=== PATIENT | male | born 1960 | race American Indian/Alaskan Native ===

== ENCOUNTER 2018-09-19 18:48 | Inpatient (IN) | payer OTHER ==
[2018-09-19] MEDS ORDERED: SODIUM CHLORIDE 1,000 ML IV STA ×2 (18:51→20:29)
[2018-09-19] MEDS ORDERED: PANTOPRAZOLE SODIUM 40 MG VIAL IVPUSH ONE (18:51)
[2018-09-19] MEDS ORDERED: PANTOPRAZOLE SODIUM 80 MG in SODIUM CHLORIDE 100 ML IVPB SCH (19:00)
[2018-09-19] MEDS ORDERED: LIDOCAINE HCL 2% (20ML MULTI-DOSE VIAL) NR ONE (19:02)
[2018-09-19] MEDS ORDERED: PANTOPRAZOLE SODIUM 40 MG VIAL ONE ×2 (19:03→21:20)
[2018-09-19] MEDS ORDERED: OCTREOTIDE ACETATE 500 MCG/1 ML - 1 ML VIAL ONE (19:04)
[2018-09-19] MEDS ORDERED: OCTREOTIDE ACETATE 100 MCG/1 ML ONE (19:08)
[2018-09-19] MEDS ORDERED: ONDANSETRON 4 MG/2 ML VIAL ONE (19:13)
[2018-09-19] MEDS ORDERED: RAPID SEQUENCE INTUBATION KIT NR ONE (19:16)
[2018-09-19] MEDS ORDERED: KETAMINE HCL 200 MG/20 ML VIAL ONE (19:19)
[2018-09-19] MEDS: FENTANYL INJECTION 500 MCG in DEXTROSE 5%-WATER - 90 ML IVPB SCH (19:45)
[2018-09-19 19:51] LABS: ARTERIAL BLD GAS O2 SATURATION 93.9 % (95-98); ARTERIAL BLOOD GAS BASE EXCESS -6.7 meq/l (-2-2); ARTERIAL BLOOD GAS PCO2 38.8 mmHg (35-45); ARTERIAL BLOOD GAS PO2 83.4 mmHg (80-105); CARBOXYHEMOGLOBIN 1.1 % (0-2)
--- NOTE | 2018-09-19 19:52 | PDOC ---
History of Present Illness - General Chief Complaint: Vomiting Blood Stated Complaint: VOMITING BLOOD Time Seen by Provider: 09/19/18 19:36 History Source: Patient Exam Limitations: No Limitations - History of Present Illness Initial Comments: 09/19/18 19:53 58 yo M with a hx of cirrhosis, hepatitis C (per chart, treated "years" ago) and DM presented to the emergency department by EMS with bright red blood emesis that began this 2 hours prior to arrival. The patient was altered on presentation and hypotensive. The patient was quite jaundice on presentation. He was admitted to our hospital last year for abdominal pain with neoplasm seen on liver per MRI. He is followed by [facility]. Pshx: none Social: Denies tobacco and drug use Allergies: NKDA Past History - Past Medical History Allergies/Adverse Reactions: Allergies Allergy/AdvReac Type Severity Reaction Status Date / Time No Known Allergies Allergy Verified 09/19/18 19:01 Home Medications: Ambulatory Orders Aspirin [Aspirin EC] 81 mg PO DAILY 02/19/18 Albuterol 0.083% Nebulizer Carey [Ventolin 0.083% Nebulizer Soln -] 1 amp NEB Q15M amp 09/20/18 Ceftriaxone [Rocephin -] 1 gm IVPB DAILY vial 09/20/18 Chlorhexidine Gluconate [Hibiclens For Decolonization -] 1 applic TP HS bottle 09/20/18 Diphenhydramine [Benadryl -] 50 mg PO HS PRN 09/20/18 Fentanyl Injection [Sublimaze Injection -] 500 mcg IVPB TITR vial MDD 500 09/20 Ferrous Sulfate 325 mg PO Q48H 09/20/18 Insulin Sliding Scale [Novolog Vial Sliding Scale -] 1 vial SQ ACHS units 09/20 Loperamide HCl [Loperamide] 2 mg PO TID 09/20/18 Midazolam [Versed -] 2 mg IVPUSH Q4H PRN ml MDD 12 09/20/18 Mupirocin Ointment [Bactroban Ointment (For Decolonization) -] 1 applic NS BID applic 09/20/18 Octreotide Acetate [Sandostatin -] 1,200 mcg IVPB ASDIR ml 09/20/18 Pantoprazole Sodium 40 mg PO DAILY 09/20/18 Polyethylene Glycol 3350 [Miralax (For Daily Use) -] 17 gm PO DAILY 09/20/18 Propranolol HCl 20 mg PO BID 09/20/18 Sucralfate [Carafate -] 1 gm PO QID 09/20/18 COPD: No Diabetes: Yes (type 2) Liver Disease: Yes (cirrhosis) - Surgical History Appendectomy: Yes - Suicide/Smoking/Psychosocial Hx Smoking History: Unknown if ever smoked Have you smoked in the past 12 months: No Number of Cigarettes Smoked Daily: 0 Cigars Per Day: 0 Hx Alcohol Use: No Drug/Substance Use Hx: No Substance Use Type: None Hx Substance Use Treatment: No Review of Systems - Review of Systems Able to Perform ROS?: No (AMS) *Physical Exam - Vital Signs Last Vital Signs Temp Pulse Resp BP Pulse Ox 110 H 20 79/51 L 95 09/19/18 19:00 09/19/18 19:25 09/19/18 19:00 09/19/18 19:00 - Physical Exam General Appearance: Yes: Other (jaundice, AMS, distended abdomen. ) HEENT: positive: EOMI, SHONDA, Pharynx Normal, Hearing Grossly Normal. negative: Pale Conjunctivae, Scleral Icterus (R), Scleral Icterus (L), Muffled/Hoarse voice, Excessive drooling Neck: positive: Trachea midline, Supple. negative: Tender, Lymphadenopathy (R) , Lymphadenopathy (L), Tender lateral, Tender midline Respiratory/Chest: positive: Lungs Clear, Normal Breath Sounds. negative: Chest Tender, Respiratory Distress, Accessory Muscle Use, Stridor, Wheezing, Hyperresonant Cardiovascular: positive: Regular Rhythm, S1, S2, Tachycardia. negative: Systolic Murmur Gastrointestinal/Abdominal: positive: Normal Bowel Sounds, Tender (diffuse), Distended, Other (juandice, ascitic fluid present) Lymphatic: negative: Adenopathy Musculoskeletal: positive: Normal Inspection. negative: CVA Tenderness, Vertebral Tenderness Extremity: positive: Normal Capillary Refill, Normal Range of Motion. negative : Normal Inspection (jaundice), Tender Integumentary: positive: Dry, Warm, Jaundice Neurologic: positive: physical biochemist II-XII NML intact, Alert, Respond to painful stimul, Other. negative: Normal Mood/Affect, Normal Response Moderate Sedation - Procedure Monitoring Vital Signs: Procedure Monitoring Vital Signs Temperature Pulse Rate 110 H 09/19/18 19:00 Respiratory Rate 20 09/19/18 19:25 Blood Pressure 79/51 L 09/19/18 19:00 O2 Sat by Pulse Oximetry (%) 95 09/19/18 19:00 Procedures - Central Line Central Line Lumen: triple Central Line Position: femoral (R) Anesthesia: other (sterile) Amount of anesthesia (ccs): 4 Complications: none Post Central Line Insertion: sutured - Intubation Intubation Method: orotracheal Blade used: Mac Tube Size (Fr): 7.5 Medications: Ketamine, Rocuronium Tube position @ lip (cm): 23 Tube position confirmed by: Direct visualization Breath Sounds after Intubation: equal Intubation Complications: no complications Post Intubation Xray: Yes Heart Score/ECG Review - ECG Intrepretation Comment:: ventricular rate: 103 bpm, ID 166 ms, QTc is 487 ms, QRS is 86 ms. Sinus tachycardia. TWI in lead III. ED Treatment Course - LABORATORY CBC & Chemistry Diagram: 09/21/18 10:00 09/21/18 05:30 - ADDITIONAL ORDERS Additional order review: Laboratory Results 09/19/18 09/19/18 09/19/18 19:43 19:03 19:03 PT with INR Cancelled INR Cancelled Anticoagulation Therapy No Result Required. O2 Delivery Device No Result Required. Oxygen Flow Rate No Result Required. Vent Mode No Result Required. Vent Rate No Result Required. Mechanical Rate No Result Required. Pressure Support Vent No Result Required. Crossmatch See Detail 09/19/18 19:03 RBC Cancelled MCV Cancelled MCHC Cancelled RDW Cancelled MPV Cancelled Neutrophils % Cancelled Lymphocytes % Cancelled Monocytes % Cancelled Eosinophils % Cancelled Basophils % Cancelled - Medications Given in the ED: ED Medications Discontinued Medications Generic Name Dose Route Start Last Admin Trade Name Freq PRN Reason Stop Dose Admin Sodium Chloride 1,000 mls @ 1,000 mls/hr 09/19/18 18:51 09/19/18 19:05 Normal Saline - IV 09/19/18 19:50 1,000 mls/hr ASDIR STA Administration Medical Decision Making - Medical Decision Making 09/19/18 20:11 58 yo M with a hx of cirrhosis, hepatitis C (per chart, treated "years" ago) and DM presented to the emergency department with bright red blood emesis that began this PM. Initial vitals: Initial Vital Signs Pulse Resp BP Pulse Ox 110 H 22 H 79/51 L 95 09/19/18 19:00 09/19/18 19:00 09/19/18 19:00 09/19/18 19:00 Work up" ddx: UGIB likely secondary variceal bleeding secondary to cirrhosis. interventions: adult resuscitation was initiated. patient was actively vomiting with AMS; concerns for protection of airway. patient was intubated and a central line was placed. please refer to procedure note. prior to intubation, the patient had estimated 500-600 cc of bright red blood vomit. Call was placed to GI multiple times; Dr. Mckeon was contacted and agreed to do an emergent endoscopy Laboratory Tests 09/19/18 09/19/18 09/19/18 19:03 19:03 19:03 WBC Cancelled Corrected WBC (auto) Cancelled RBC Cancelled Hgb Cancelled Hct Cancelled MCV Cancelled MCH Cancelled MCHC Cancelled RDW Cancelled Plt Count Cancelled MPV Cancelled Absolute Neuts (auto) Cancelled Neutrophils % Cancelled Lymphocytes % Cancelled Monocytes % Cancelled Eosinophils % Cancelled Basophils % Cancelled Nucleated RBC % Cancelled Platelet Estimate Cancelled Platelet Comment Cancelled PT with INR Cancelled INR Cancelled PTT (Actin FS) Anticoagulation Therapy Puncture Site ABG pH ABG pCO2 at Pt Temp ABG pO2 at Pt Temp ABG HCO3 ABG O2 Sat (Measured) ABG O2 Content ABG Base Excess Tejas Test Carboxyhemoglobin Methemoglobin O2 Delivery Device Oxygen Flow Rate Vent Mode Vent Rate Mechanical Rate Pressure Support Vent Sodium 131 L Potassium 6.0 H Chloride 102 Carbon Dioxide 22 Anion Gap 7 L BUN 14 Creatinine 0.7 Creat Clearance w eGFR > 60 Random Glucose 195 H Calcium 7.4 L Total Bilirubin 4.0 H AST 229 H ALT 105 H Alkaline Phosphatase 202 H Creatine Kinase 159 Creatine Kinase Index 0.6 CK-MB (CK-2) < 1.0 Troponin I < 0.02 Total Protein 6.0 L Albumin 1.3 L Blood Type Antibody Screen Crossmatch 09/19/18 09/19/18 09/19/18 19:03 19:39 19:39 WBC Cancelled Corrected WBC (auto) Cancelled RBC Cancelled Hgb Cancelled Hct Cancelled MCV Cancelled MCH Cancelled MCHC Cancelled RDW Cancelled Plt Count Cancelled MPV Cancelled Absolute Neuts (auto) Cancelled Neutrophils % Cancelled Lymphocytes % Cancelled Monocytes % Cancelled Eosinophils % Cancelled Basophils % Cancelled Nucleated RBC % Cancelled Platelet Estimate Cancelled Platelet Comment Cancelled PT with INR 21.30 H INR 1.79 H PTT (Actin FS) Anticoagulation Therapy Puncture Site ABG pH ABG pCO2 at Pt Temp ABG pO2 at Pt Temp ABG HCO3 ABG O2 Sat (Measured) ABG O2 Content ABG Base Excess Tejas Test Carboxyhemoglobin Methemoglobin O2 Delivery Device Oxygen Flow Rate Vent Mode Vent Rate Mechanical Rate Pressure Support Vent Sodium Potassium Chloride Carbon Dioxide Anion Gap BUN Creatinine Creat Clearance w eGFR Random Glucose Calcium Total Bilirubin AST ALT Alkaline Phosphatase Creatine Kinase Creatine Kinase Index CK-MB (CK-2) Troponin I Total Protein Albumin Blood Type A NEGATIVE Antibody Screen Negative Crossmatch See Detail 09/19/18 09/19/18 09/19/18 19:39 19:39 19:39 WBC Corrected WBC (auto) RBC Hgb Hct MCV MCH MCHC RDW Plt Count MPV Absolute Neuts (auto) Neutrophils % Lymphocytes % Monocytes % Eosinophils % Basophils % Nucleated RBC % Platelet Estimate Platelet Comment PT with INR INR PTT (Actin FS) 29.2 Anticoagulation Therapy Puncture Site ABG pH ABG pCO2 at Pt Temp ABG pO2 at Pt Temp ABG HCO3 ABG O2 Sat (Measured) ABG O2 Content ABG Base Excess Tejas Test Carboxyhemoglobin Methemoglobin O2 Delivery Device Oxygen Flow Rate Vent Mode Vent Rate Mechanical Rate Pressure Support Vent Sodium Cancelled Potassium Cancelled Chloride Cancelled Carbon Dioxide Cancelled Anion Gap Cancelled BUN Cancelled Creatinine Cancelled Creat Clearance w eGFR Cancelled Random Glucose Cancelled Calcium Cancelled Total Bilirubin Cancelled AST Cancelled ALT Cancelled Alkaline Phosphatase Cancelled Creatine Kinase Creatine Kinase Index CK-MB (CK-2) Troponin I Total Protein Cancelled Albumin Cancelled Blood Type A NEGATIVE Antibody Screen Negative Crossmatch See Detail 09/19/18 09/19/18 09/19/18 19:43 20:05 20:05 WBC 14.5 H Corrected WBC (auto) RBC 3.36 L Hgb 8.6 L Hct 26.9 L D MCV 80.1 MCH 25.7 D MCHC 32.1 RDW 22.6 H Plt Count 456 H D MPV 9.5 Absolute Neuts (auto) Neutrophils % Lymphocytes % Monocytes % Eosinophils % Basophils % Nucleated RBC % Platelet Estimate Platelet Comment PT with INR 22.00 H INR 1.85 H PTT (Actin FS) Anticoagulation Therapy No Result Required. Puncture Site No Result Required. ABG pH 7.30 L ABG pCO2 at Pt Temp 38.8 ABG pO2 at Pt Temp 83.4 ABG HCO3 18.6 L ABG O2 Sat (Measured) 93.9 L ABG O2 Content 8.5 L* ABG Base Excess -6.7 L Tejas Test Positive Carboxyhemoglobin 1.1 Methemoglobin 0.5 O2 Delivery Device No Result Required. Oxygen Flow Rate No Result Required. Vent Mode No Result Required. Vent Rate No Result Required. Mechanical Rate No Result Required. Pressure Support Vent No Result Required. Sodium Potassium Chloride Carbon Dioxide Anion Gap BUN Creatinine Creat Clearance w eGFR Random Glucose Calcium Total Bilirubin AST ALT Alkaline Phosphatase Creatine Kinase Creatine Kinase Index CK-MB (CK-2) Troponin I Total Protein Albumin Blood Type Antibody Screen Crossmatch 09/19/18 09/19/18 20:05 20:47 WBC Corrected WBC (auto) RBC Hgb Hct MCV MCH MCHC RDW Plt Count MPV Absolute Neuts (auto) Neutrophils % Lymphocytes % Monocytes % Eosinophils % Basophils % Nucleated RBC % Platelet Estimate Platelet Comment PT with INR INR PTT (Actin FS) Anticoagulation Therapy Puncture Site ABG pH ABG pCO2 at Pt Temp ABG pO2 at Pt Temp ABG HCO3 ABG O2 Sat (Measured) ABG O2 Content ABG Base Excess Tejas Test Carboxyhemoglobin Methemoglobin O2 Delivery Device Oxygen Flow Rate Vent Mode Vent Rate Mechanical Rate Pressure Support Vent Sodium 136 133 L Potassium 5.5 H 6.1 H* Chloride 106 104 Carbon Dioxide 21 22 Anion Gap 9 7 L BUN 13 14 Creatinine 0.8 0.8 Creat Clearance w eGFR > 60 > 60 Random Glucose 181 H 187 H Calcium 6.9 L* 7.3 L Total Bilirubin 3.5 H 4.6 H AST 164 H 215 H ALT 27 35 Alkaline Phosphatase 180 H 189 H Creatine Kinase Creatine Kinase Index CK-MB (CK-2) Troponin I Total Protein 5.1 L 5.5 L Albumin 1.2 L 1.3 L Blood Type Antibody Screen Crossmatch hemoglobin was 8.6. 3 units of PRBCs and platelets and running ordered. Central line in place due to difficulty in obtaining peripheral access. NG tube was placed. started on broad spectrum abx including ceftriaxone for coverage. CXR shows ETT in place. started on octreotride, protonix. A call was placed to [facility] for transfer at the request of Dr. Mckeon. [facility] declined transfer and recommended GI proceed with the emergent endoscopy. Patient's case was discussed with ICU. Per Dr. Mckeon, there is concern for perforation; a call to [facility] transfer was placed by Dr. Aldana. Patient was admitted to ICU. Per Dr. Mckeon, the patient was recently discharged from [facility] approximately 2 weeks ago with multiple variceal bandings done with 10 liters of fluid removed from the abdomen. Per the family, patient is FULL CODE Dispo: Admit *DC/Admit/Observation/Transfer Diagnosis at time of Disposition: Jaundice, UGIB (upper gastrointestinal bleed) Liver cirrhosis Qualifiers: Hepatic cirrhosis type: unspecified hepatic cirrhosis Ascites presence: unspecified Qualified Code(s): K74.60 - Unspecified cirrhosis of liver - Discharge Dispostion Condition at time of disposition: Critical - Referrals - Patient Instructions - Post Discharge Activity
[2018-09-19 20:12] LABS: INR 1.79 (0.83-1.09); PROTHROMBIN TIME (PATIENT) 21.3 SEC (9.7-13.0)
[2018-09-19 20:15] LABS: HEMATOCRIT 26.9 % (35.4-49); HEMOGLOBIN 8.6 GM/dL (11.7-16.9); MCH 25.7 pg (25.7-33.7); MCHC 32.1 g/dl (32.0-35.9); MEAN CELL VOLUME 80.1 fl (80-96); MEAN PLT VOLUME 9.5 fl (7.5-11.1); PLATELET COUNT 456 K/MM3 (134-434); RBC 3.36 M/mm3 (4.00-5.60); RDW 22.6 % (11.9-15.9); WHITE BLOOD COUNT 14.5 K/mm3 (4.0-10.0)
--- NOTE | 2018-09-19 20:18 | PDOC ---
Attending Attestation - HPI HPI: 09/19/18 22:54 The patient is a year old male, with a significant past medical history of liver cancer, cirrhosis, hepatitis C, and DM who presents to the emergency department via EMS, with bright red blood upper GI bleeding that began this a few hours prior to his arrival to the ED. The patient was altered, actively vomiting bright red blood, and hypotensive. The patient was admitted here at [facility] last year for abdominal pain with neoplasm seen on liver per MRI. Allergies: NKDA Past surgical history: None reported Social history: None reported PCP: Dr. Sarahi Sandoval - Physicial Exam PE: 09/19/18 22:55 GENERAL:confused, active to pain, jaundice NECK: Normal ROM LUNGS: Breath sounds equal, clear to auscultation bilaterally. ABDOMEN: ictus in abdomen with fluid EXTREMITIES: 2+ pitting edema L >R NEUROLOGICAL: Cranial nerves II through XII grossly intact. SKIN: Warm, Dry, normal turgor <Nae Shaver - Last Filed: 09/19/18 22:54> - Resident Resident Name: Alek Sewell - ED Attending Attestation I have performed the following: I have examined & evaluated the patient, The case was reviewed & discussed with the resident, I agree w/resident's findings & plan, Exceptions are as noted - Critical Care Time Total Critical Care Time: 90 Critical Care Statement: The care of this patient involved high complexity decision making to prevent further life threatening deterioration of the patient 's condition and/or to evaluate & treat vital organ system(s) failure or risk of failure. - Medical Decision Making 09/19/18 20:14 I, Dr. Shanell Aldana, DO, attest that this document has been prepared under my direction and personally reviewed by me in its entirety. I further attest, that it accurately reflects all work, treatment, procedures and medical decision -making performed by me. 09/19/18 20:14 a/p: 58yo male with hx of liver ca with upper gi bleeding -pt actively vomiting brb -jaundiced -pts mental status and ability to protect his airway was limited -pt intubated upon arrival -labs sent -stat call to GI placed upon arrival -per the [facility], pt is a full code -blood consent to start transfusion given by the [facility] -consent obtain to place central line, pt very difficult peripheral stick -ffp and prbc ordered 09/19/18 20:17 multiple calls placed to GI without a response call placed to [facility] for transfer 09/19/18 20:[address] Bain- call with h/h and transfer status 09/19/18 20:18 hemoglobin is 8.6 09/19/18 20:18 resident discussing the case with [facility] transfer center and the GI team 09/19/18 20:23 case discussed again with Dr. Bain who is coming in for emergent endoscopy 09/19/18 20:32 xray shows ett in place -concern for aspiraation, broad spectrum abx ordere given ascites, distended abd, ugib covering for sbp 09/19/18 20:42 case discussed with the ICU resident dr. bain at the bedside, calling in the GI team 09/19/18 21:36 case discussed the onc fellow from [facility]-will discuss the case with their attending and call back for acceptance in transfer 09/19/18 21:38 family updated and state they want to go to [facility] 09/19/18 22:24 pt currently in the endoscopy suite 09/19/18 22:44 call placed to the [facility] transfer center for transfer to [place] 09/19/18 22:[address] Bain- blood everywhere, concern for perforation 09/19/18 23:26 dr burk updated on the status pt currently in the ICU case [facility] vitals and repeat labs Louise- the icu resident was updated on this conversation <Shanell Aldana - Last Filed: 09/19/18 23:31> Heart Score/ECG Review - ECG Intrepretation Comment:: 09/19/18 20:31 sinus tach at 103, nl axis, q waves inferior leads, qtc prolongation, abnl ekg <Shanell Aldana - Last Filed: 09/19/18 23:31> Attestations - Attestations 09/19/18 22:55 Documentation prepared by Nae Shaver, acting as medical numerical control operator for Shanell Aldana DO, MD <Nae Shaver - Last Filed: 09/19/18 22:54>
[2018-09-19] MEDS ORDERED: PIPERACILLIN/TAZOB 3.375 GM 3.375 GM in DEXTROSE 5%-WATER - 50 ML IVPB ONE ×2 (20:22→23:45)
[2018-09-19] MEDS ORDERED: ONDANSETRON 4 MG/2 ML VIAL IVPUSH ONE (20:25)
[2018-09-19] MEDS ORDERED: ROCURONIUM BROMIDE 50 MG/5 ML VIAL IVPUSH ONE (20:25)
[2018-09-19 20:29] LABS: INR 1.85 (0.83-1.09)
[2018-09-19] MEDS ORDERED: OCTREOTIDE ACETATE 50 MCG/1 ML - 1 ML VIAL IVPUSH ONE (20:29)
[2018-09-19] MEDS ORDERED: KETAMINE HCL 200 MG/20 ML VIAL IVPUSH ONE (20:30)
[2018-09-19] MEDS ORDERED: VANCOMYCIN 1,000 MG in DEXTROSE 5%-WATER - 250 ML IVPB ONE (20:32)
[2018-09-19] MEDS ORDERED: MIDAZOLAM HCL 2 MG/2 ML SINGLE DOSE VIAL ONE ×2 (20:44→22:12)
[2018-09-19] MEDS ORDERED: MIDAZOLAM HCL 5 MG/1 ML Single Dose Vial IVPUSH SCH (20:45)
[2018-09-19 20:51] LABS: ALBUMIN 1.3 g/dl (3.4-5.0); ALK PHOS 202 U/L (45-117); ANION GAP 7 MMOL/L (8-16); BLOOD UREA NITROGEN 14 mg/dL (7-18); CALCIUM 7.4 mg/dL (8.5-10.1); CHLORIDE 102 mmol/L (98-107); CO2 22 mmol/L (21-32); CREATININE 0.7 mg/dL (0.55-1.3); GLUCOSE,RANDOM 195 mg/dL (74-106); SGOT/AST 229 U/L (15-37); SGPT/ALT 105 U/L (13-61); SODIUM 131 mmol/L (136-145)
--- NOTE | 2018-09-19 20:59 | CON.GI ---
Consult Consult Specialty:: GI Referred by:: Shanell Aldana Reason for Consultation:: Hematemesis - History of Present Illness Chief Complaint: Hematemesis History of Present Illness: 58 y.o. M, h/o HCV treated in past. Diagnosed with hepatocellular carcinoma 6 months ago at [facility], then went to [facility] for oncology. Reportedly was given "immunotherapy" at [facility], which was stopped in July because of a bilirubin of 17. Has had several episodes of melena for which he had multiple variceal bandings done, with the last one about 2 weeks ago. Also had a 10 L paracentesis one week ago. Today had the largest GI bleed he has ever experienced leading to ER admission, intubation, etc. - History Source History Provided By: Family Member (pt's oral Duron) - Past Medical History Gastrointestinal: Yes: Ascites, Cancer Hepatobiliary: Yes: Hepatitis C - Alcohol/Substance Use Hx Alcohol Use: No - Smoking History Smoking history: Unknown if ever smoked Have you smoked in the past 12 months: No Aproximately how many cigarettes per day: 0 Home Medications - Allergies Allergies/Adverse Reactions: Allergies Allergy/AdvReac Type Severity Reaction Status Date / Time No Known Allergies Allergy Verified 09/19/18 19:01 - Home Medications Home Medications: Ambulatory Orders Alogliptin Javier/Metformin HCl [Alogliptin-Metformin 12.5-1000] 1 each PO BID 04/26 Glipizide [Glipizide ER] 2.5 mg PO DAILY 02/16/18 Nadolol 40 mg PO DAILY 02/16/18 Aspirin [Aspirin EC] 81 mg PO DAILY 02/19/18 Docusate Sodium 2 cap PO PRN PRN 02/19/18 Omeprazole 40 mg PO DAILY 02/19/18 Physical Exam-GI Vital Signs: Vital Signs Temperature Pulse Rate 110 H 09/19/18 19:00 Respiratory Rate 20 09/19/18 19:25 Blood Pressure 79/51 L 09/19/18 19:00 O2 Sat by Pulse Oximetry (%) 95 09/19/18 19:00 Constitutional: Yes: Other (Jaundiced with muscle wasting. Intubated.) Eyes: Yes: Sclera Icterus HENT: Yes: Other Respiratory: Yes: Other (Intubated) Gastrointestinal Inspection: Yes: Ascites, Distention Labs: CBC, BMP 09/19/18 20:05 INR, PTT INR 1.85 (0.83-1.09) H 09/19/18 20:05 Problem List - Problems (1) Portal hypertension with esophageal varices Code(s): K76.6 - PORTAL HYPERTENSION; I85.00 - ESOPHAGEAL VARICES WITHOUT BLEEDING Assessment/Plan Upper GI bleed, past history of varices. Already on octreotide, pantoprazole, receiving packed RBCs. To get FFP to help correct INR. For EGD with possible banding of varices tonight.
[2018-09-19] MEDS: OCTREOTIDE ACETATE 1,200 MCG in DEXTROSE 5%-WATER - 488 ML IVPB SCH (21:00)
[2018-09-19] MEDS ORDERED: SODIUM CHLORIDE 1,000 ML IV SCH (21:15)
[2018-09-19] MEDS ORDERED: PANTOPRAZOLE SODIUM 80 MG/200 ML BAG IVPB ONE (21:15)
--- NOTE | 2018-09-19 21:16 | PN ---
Progress Note (short form) - Note Progress Note: Reviewed home medications with pt's nephewDomi. He is taking: propranol pantoprazole senna prn Imodium prn He does not take aspirin and has been taken off hypoglycemic medication. Problem List - Problems (1) Portal hypertension with esophageal varices Code(s): K76.6 - PORTAL HYPERTENSION; I85.00 - ESOPHAGEAL VARICES WITHOUT BLEEDING
[2018-09-19] MEDS ORDERED: CEFTRIAXONE 1 GM/50 ML BAG ONE (21:20)
[2018-09-19 21:23] LABS: ALBUMIN 1.2 g/dl (3.4-5.0); ALK PHOS 180 U/L (45-117); ANION GAP 9 MMOL/L (8-16); BILIRUBIN,TOTAL 3.5 mg/dL (0.2-1); BLOOD UREA NITROGEN 13 mg/dL (7-18); CHLORIDE 106 mmol/L (98-107); CO2 21 mmol/L (21-32); CREATININE 0.8 mg/dL (0.55-1.3); GLUCOSE,RANDOM 181 mg/dL (74-106); POTASSIUM 5.5 mmol/L (3.5-5.1); SGOT/AST 164 U/L (15-37); SGPT/ALT 27 U/L (13-61); SODIUM 136 mmol/L (136-145); TOT PROT 5.1 g/dl (6.4-8.2)
[2018-09-19] MEDS ORDERED: EPINEPHrine 1:10,000 (P-F SYR) 1 MG/10 ML DISP.SYRIN ONE (21:25)
[2018-09-19 21:29] LABS: CALCIUM 6.9 mg/dL (8.5-10.1)
[2018-09-19 21:37] LABS: ALBUMIN 1.3 g/dl (3.4-5.0); ALK PHOS 189 U/L (45-117); ANION GAP 7 MMOL/L (8-16); BILIRUBIN,TOTAL 4.6 mg/dL (0.2-1); BLOOD UREA NITROGEN 14 mg/dL (7-18); CALCIUM 7.3 mg/dL (8.5-10.1); CHLORIDE 104 mmol/L (98-107); CO2 22 mmol/L (21-32); CREATININE 0.8 mg/dL (0.55-1.3); GLUCOSE,RANDOM 187 mg/dL (74-106); SGOT/AST 215 U/L (15-37); SGPT/ALT 35 U/L (13-61); SODIUM 133 mmol/L (136-145); TOT PROT 5.5 g/dl (6.4-8.2)
[2018-09-19 21:40] LABS: POTASSIUM 6.1 mmol/L (3.5-5.1)
--- NOTE | 2018-09-19 23:01 | CONSULT ---
Consultation: REQUESTING PROVIDER: CONSULT REQUEST: We have been asked to medically evaluate this patient for ( massive upper GI bleed- ICU admission). HISTORY OF PRESENT ILLNESS: History obtained from patient's HCP Mr. Marin ( nephcasey). Patient is a 57 year old Male with history of hepatocellular carcinoma and esophageal varices presented to the ED with massive upper GI bleed. Patient was resuscitated in the ED, he also had altered mental status, was intubated in the ED for airway protection, Central line was placed. Was given 2 L of normal saline, 1 FFP, 2 PRBC. Octreotide and PPI drip was started and patient was immediately taken for Upper Endoscopy. There was extensive active bleeding in the esophagus. A large clot was present in the body and fundus of the stomach, but no active bleeding was seen in the stomach. Bleeding was too rapid so the site of the active bleeding couldn't be visualized so the procedure was terminated. Patient was then transferred to ICU for further management. During the procedure, there were no complications. Vitals were stable. Was given 2mg of Versed and 200 mls of Normal Saline during the procedure. Upon arrival in the ICU. Vitals BP: 104/68 mmHg, P-82 bpm, RR -22, Spo2-98 %, Sedated and Intubated. After an hour, patient responded to verbal stimuli, responded to yes and no questions. Since he was uncomfortably, versed 2mg was given. As per the HCP, patient had Hep C was treated 20 years ago, developed cirrhosis. He was diagnosed to have Hepatocellular carcinoma in Feb, 2018. Since March he started having Upper GI bleed. Upper EGD showed no active bleed. Post op was intubated for 48 hrs and admitted in ICU for 28 days. In August, he was treated with IVIG . However it was stopped due to elevation of T. Bili - 17.5, was admitted at [facility] until the bilirubin went down. Upon discharge his T. blili was 8 and was discharged home. Since then he has had additional 3 EGDs and had banding done. A week ago, he developed ascites, paracentesis was done and report is still pending. He gets all of his treatment done at [facility]. As per the physician (Onc fellow) at [facility], they recommended home hospice however patient's family denied home hospice and wanted to continue medical management. Patient was admitted here at [facility] from 02/17/18 to 02/19/18 for abdominal pain. Abdominal pain got better and patient wanted to get his treatment done at [facility] so he was discharged. PAST MEDICAL HISTORY: Cirrhosis, Hepatocellular carcinoma, Esophageal varices, Hep C (treated successfully many years ago), DM 2, Portal vein thrombosis PAST SURGICAL HISTORY: Appendectomy ALLERGIES: Bactrim SOCIAL HISTORY: Smoking: Former smoker. Quit > 20 yrs ago Alcohol: Never Drugs: Never OCCUPATION: Business, owns a grocery store. REVIEW OF SYSTEMS: Patient sedated and Intubated. Unable to obtain ROS. PHYSICAL EXAMINATION Vital Signs - 24 hr 09/19/18 09/19/18 19:00 19:25 Pulse Rate 110 H Respiratory 22 H 20 Rate Blood Pressure 79/51 L O2 Sat by Pulse 95 Oximetry (%) GENERAL: Middle aged male, sedated and Intubated. Right femoral line, moran catheter in place. EYES: Pin point pupils. EARS, NOSE, THROAT: Bright red blood oozing from the mouth. NECK: No JVD. LUNGS: B/L lungs clear, no added sounds. HEART: Regular rate and rhythm, normal S1 and S2 without murmur. ABDOMEN: Distended +, hypoactive bowel sounds. Hepatosplenomegaly couldn't be appreciated. UPPER EXTREMITIES: No peripheral edema. LOWER EXTREMITIES: No peripheral edema. NEUROLOGICAL: Intubated. Responded to verbal stimuli. Nods yes and no to questions. Moving upper extremities. SKIN: No lesions or rashes. Laboratory Results - last 24 hr 09/19/18 09/19/18 09/19/18 19:03 19:03 19:03 WBC Cancelled Corrected WBC (auto) Cancelled RBC Cancelled Hgb Cancelled Hct Cancelled MCV Cancelled MCH Cancelled MCHC Cancelled RDW Cancelled Plt Count Cancelled MPV Cancelled Absolute Neuts (auto) Cancelled Neutrophils % Cancelled Lymphocytes % Cancelled Monocytes % Cancelled Eosinophils % Cancelled Basophils % Cancelled Nucleated RBC % Cancelled Platelet Estimate Cancelled Platelet Comment Cancelled PT with INR Cancelled INR Cancelled PTT (Actin FS) Anticoagulation Therapy ABG pH ABG pCO2 at Pt Temp ABG pO2 at Pt Temp ABG HCO3 ABG O2 Sat (Measured) ABG O2 Content ABG Base Excess Carboxyhemoglobin Methemoglobin O2 Delivery Device Oxygen Flow Rate Vent Mode Vent Rate Mechanical Rate Pressure Support Vent Sodium 131 L Potassium 6.0 H Chloride 102 Carbon Dioxide 22 Anion Gap 7 L BUN 14 Creatinine 0.7 Creat Clearance w eGFR > 60 Random Glucose 195 H Calcium 7.4 L Total Bilirubin 4.0 H AST 229 H ALT 105 H Alkaline Phosphatase 202 H Creatine Kinase 159 Creatine Kinase Index 0.6 CK-MB (CK-2) < 1.0 Troponin I < 0.02 Total Protein 6.0 L Albumin 1.3 L Blood Type Antibody Screen Crossmatch 09/19/18 09/19/18 09/19/18 19:03 19:39 19:39 WBC Cancelled Corrected WBC (auto) Cancelled RBC Cancelled Hgb Cancelled Hct Cancelled MCV Cancelled MCH Cancelled MCHC Cancelled RDW Cancelled Plt Count Cancelled MPV Cancelled Absolute Neuts (auto) Cancelled Neutrophils % Cancelled Lymphocytes % Cancelled Monocytes % Cancelled Eosinophils % Cancelled Basophils % Cancelled Nucleated RBC % Cancelled Platelet Estimate Cancelled Platelet Comment Cancelled PT with INR 21.30 H INR 1.79 H PTT (Actin FS) Anticoagulation Therapy ABG pH ABG pCO2 at Pt Temp ABG pO2 at Pt Temp ABG HCO3 ABG O2 Sat (Measured) ABG O2 Content ABG Base Excess Carboxyhemoglobin Methemoglobin O2 Delivery Device Oxygen Flow Rate Vent Mode Vent Rate Mechanical Rate Pressure Support Vent Sodium Potassium Chloride Carbon Dioxide Anion Gap BUN Creatinine Creat Clearance w eGFR Random Glucose Calcium Total Bilirubin AST ALT Alkaline Phosphatase Creatine Kinase Creatine Kinase Index CK-MB (CK-2) Troponin I Total Protein Albumin Blood Type A NEGATIVE Antibody Screen Negative Crossmatch See Detail 09/19/18 09/19/18 09/19/18 19:39 19:39 19:39 WBC Corrected WBC (auto) RBC Hgb Hct MCV MCH MCHC RDW Plt Count MPV Absolute Neuts (auto) Neutrophils % Lymphocytes % Monocytes % Eosinophils % Basophils % Nucleated RBC % Platelet Estimate Platelet Comment PT with INR INR PTT (Actin FS) 29.2 Anticoagulation Therapy ABG pH ABG pCO2 at Pt Temp ABG pO2 at Pt Temp ABG HCO3 ABG O2 Sat (Measured) ABG O2 Content ABG Base Excess Carboxyhemoglobin Methemoglobin O2 Delivery Device Oxygen Flow Rate Vent Mode Vent Rate Mechanical Rate Pressure Support Vent Sodium Cancelled Potassium Cancelled Chloride Cancelled Carbon Dioxide Cancelled Anion Gap Cancelled BUN Cancelled Creatinine Cancelled Creat Clearance w eGFR Cancelled Random Glucose Cancelled Calcium Cancelled Total Bilirubin Cancelled AST Cancelled ALT Cancelled Alkaline Phosphatase Cancelled Creatine Kinase Creatine Kinase Index CK-MB (CK-2) Troponin I Total Protein Cancelled Albumin Cancelled Blood Type A NEGATIVE Antibody Screen Negative Crossmatch See Detail 09/19/18 09/19/18 09/19/18 19:43 20:05 20:05 WBC 14.5 H Corrected WBC (auto) RBC 3.36 L Hgb 8.6 L Hct 26.9 L D MCV 80.1 MCH 25.7 D MCHC 32.1 RDW 22.6 H Plt Count 456 H D MPV 9.5 Absolute Neuts (auto) Neutrophils % Lymphocytes % Monocytes % Eosinophils % Basophils % Nucleated RBC % Platelet Estimate Platelet Comment PT with INR 22.00 H INR 1.85 H PTT (Actin FS) Anticoagulation Therapy No Result Required. ABG pH 7.30 L ABG pCO2 at Pt Temp 38.8 ABG pO2 at Pt Temp 83.4 ABG HCO3 18.6 L ABG O2 Sat (Measured) 93.9 L ABG O2 Content 8.5 L* ABG Base Excess -6.7 L Carboxyhemoglobin 1.1 Methemoglobin 0.5 O2 Delivery Device No Result Required. Oxygen Flow Rate No Result Required. Vent Mode No Result Required. Vent Rate No Result Required. Mechanical Rate No Result Required. Pressure Support Vent No Result Required. Sodium Potassium Chloride Carbon Dioxide Anion Gap BUN Creatinine Creat Clearance w eGFR Random Glucose Calcium Total Bilirubin AST ALT Alkaline Phosphatase Creatine Kinase Creatine Kinase Index CK-MB (CK-2) Troponin I Total Protein Albumin Blood Type Antibody Screen Crossmatch 09/19/18 09/19/18 20:05 20:47 WBC Corrected WBC (auto) RBC Hgb Hct MCV MCH MCHC RDW Plt Count MPV Absolute Neuts (auto) Neutrophils % Lymphocytes % Monocytes % Eosinophils % Basophils % Nucleated RBC % Platelet Estimate Platelet Comment PT with INR INR PTT (Actin FS) Anticoagulation Therapy ABG pH ABG pCO2 at Pt Temp ABG pO2 at Pt Temp ABG HCO3 ABG O2 Sat (Measured) ABG O2 Content ABG Base Excess Carboxyhemoglobin Methemoglobin O2 Delivery Device Oxygen Flow Rate Vent Mode Vent Rate Mechanical Rate Pressure Support Vent Sodium 136 133 L Potassium 5.5 H 6.1 H* Chloride 106 104 Carbon Dioxide 21 22 Anion Gap 9 7 L BUN 13 14 Creatinine 0.8 0.8 Creat Clearance w eGFR > 60 > 60 Random Glucose 181 H 187 H Calcium 6.9 L* 7.3 L Total Bilirubin 3.5 H 4.6 H AST 164 H 215 H ALT 27 35 Alkaline Phosphatase 180 H 189 H Creatine Kinase Creatine Kinase Index CK-MB (CK-2) Troponin I Total Protein 5.1 L 5.5 L Albumin 1.2 L 1.3 L Blood Type Antibody Screen Crossmatch Active Medications Generic Name Dose Route Start Last Admin Trade Name Freq PRN Reason Stop Dose Admin Pantoprazole Sodium 80 mg/ 100 mls @ 10 mls/hr 09/19/18 19:00 Sodium Chloride IVPB Q10H ALYSA 8 MG/HR Octreotide Acetate 1,200 mcg/ 500 mls @ 20.83 mls/hr 09/19/18 19:00 09/19/18 21:00 Dextrose IVPB 20.83 mls/hr ASDIR ALYSA Administration 50 MCG/HR Fentanyl 500 mcg/ Dextrose 100 mls @ 0 mls/hr 09/19/18 19:30 09/19/18 19:45 IVPB 25 mcg/hr TITR ALYSA 5 mls/hr Administration Protocol 0 MCG/HR Sodium Chloride 1,000 mls @ 100 mls/hr 09/19/18 21:15 09/19/18 19:10 Normal Saline - IV 100 mls/hr ASDIR ALYSA Administration Midazolam HCl 5 mg 09/19/18 20:45 09/19/18 20:42 Versed - IVPUSH 5 mg PRN ALYSA Administration IMAGIN/18: CTAP: cirrhosis, splenomegally ,varices, portal vein thrombosis, pancolitis. pt tx w/ abx for pancolitis. 02/24: MRCP shows focal abnormal signal involving the right lobe measuring approx 9.2 cm. Enlarged periportal and peripancreatic lymphnodes measuring 1.8cm. MRI showing diffusely irregular and enlarged main portal vein and right portal vein very suspicious for thrombosis. Diffuse abnormal signal within the right lobe of the liver is probably related to the portal vein thrombosis. ASSESSMENT/PLAN: Patient is a 58 year old male with significant past medical history of Cirrhosis , Hepatocellular carcinoma, Esophageal varices, Hep C (treated successfully many years ago), DM 2, Portal vein thrombosis presented to the ED with massive upper GI bleed, emergent EGD was done without successful cessation of bleeding due to active bleed. Procedure was terminated and now in ICU for further management. # Massive Upper GI bleed likely secondary to esophageal varices vs ulcers. Sedated and Intubated for altered mental status A/C settings at 12/400/40/5 IV Fentanyl drip/ IV Versed 2mg push PRN for sedation Continue IV Protonix drip and octreotide drip Patient received total of 5 PRBCs and 2 FFP's Repeat CBC H/H on admission 8.6/26.9---> after the 4th transfusion H/H 9./ .3 Lactic acid 3.9--> repeat at 5 am. IV Ceftriaxone 2gm once given and to continue Continue IV NS @ 75 mls/hr # Hyperkalemia without EKG changes K 6--> 6.2 likely from blood transfusion. Treated with Insulin and 50 % Dextrose Repeat K was still 6.3 without any EKG changes. Again treated with Insulin, 50 % Dextrose and Albuterol x 3. Will repeat BMP at 5 am # Abdominal distention It could be from ascites vs massive blood collection vs perforation Patient is too unstable to get a CT abdomen/Pelvis. # Elevated liver enzymes Likely secondary to cirrhosis and HCC. Normal platelet count. Last admission , had thrombocytopenia which has now resolved. T. bili 4--> 7.8, AST/ALT/ALP 229/105/202---> 233/42/164 Hepatic panel was done last admission 02/24 Hep A Ab positive. Hep A, Hep B, HCV RNA PCR not detected. HIV negative # Normocytic anemia likely from GI bleed H/H 9.2/27.3. last admission H/h was 13.439.4 (02/18/2019) received 5 units of PRBC. Next CBC at 5 am # Portal vein thrombosis # Elevated INR INR 1.85---> after 2 FFP INR is 1.66. Will repeat. # DM As per family, his medications were stopped 2 months ago as HbA1c was around 5. Finger stick BGMs, Insulin sliding scale # FEN IV NS @ 75 mls/hr Electrolytes to be repeated at 5 am NPO # Prophylaxis For GI: On Protonix drip For DVT: SCDs, no chemical prophylaxis due to GI bleed # Code Status: Full Code. Family members present at bed side (Patients oral LOZANO, another nephew , pts brother and his ). Explained in detail regarding patients critical condition. They verbalized understanding. Family requested for transfer to a tertiary care center. Follow up was done with the ED physician who had spoken with Dr. Zelaya ([facility] at [facility]); depending upon the most recent labs, vitals and stability of the patient, she will decide whether to accept the patient for further management. Explained to the family members that patient is not stable enough to be transferred at this time, patient's family verbalized understanding. Case discussed with ED physician, Dr. Mckeon and Dr. Jean. Dispo: We will continue to follow the patient. Thank you for this consultative opportunity. Visit type - Emergency Visit Emergency Visit: Yes ED Registration Date: 09/19/18 Care time: The patient presented to the Emergency Department on the above date and was hospitalized for further evaluation of their emergent condition. - New Patient This patient is new to me today: Yes Date on this admission: 09/19/18 - Critical Care Critical Care patient: Yes Total Critical Care Time (in minutes): 35 Critical Care Statement: The care of this patient involved high complexity decision making to prevent further life threatening deterioration of the patient 's condition and/or to evaluate & treat vital organ system(s) failure or risk of failure.
[2018-09-19] MEDS ORDERED: INSULIN REGULAR HUMAN 100 UNITS/ML *VIAL IVPUSH ONE (23:23)
[2018-09-19] MEDS ORDERED: DEXTROSE 50%-WATER 25 GM/50 ML DISP.SYRIN IVPUSH ONE (23:24)
[2018-09-19] MEDS ORDERED: VANCOMYCIN 1 GRAM (PRE-DOCKED) 1,000 MG/250 ML BAG IVPB ONE (23:45)
[2018-09-19] MEDS ORDERED: DEXTROSE 50%-WATER - 25 GM/50 ML VIAL ONE (23:58)
[2018-09-20] MEDS: PANTOPRAZOLE SODIUM 80 MG in SODIUM CHLORIDE 100 ML IVPB SCH ×3 (00:04→22:40)
[2018-09-20 00:15] LABS: HEMATOCRIT 27.3 % (35.4-49); HEMOGLOBIN 9.2 GM/dL (11.7-16.9); MCHC 33.6 g/dl (32.0-35.9); MEAN CELL VOLUME 80.4 fl (80-96); MEAN PLT VOLUME 9.8 fl (7.5-11.1); PLATELET COUNT 488 K/MM3 (134-434); RDW 20.8 % (11.9-15.9); WHITE BLOOD COUNT 17.1 K/mm3 (4.0-10.0)
[2018-09-20 00:26] LABS: INR 1.66 (0.83-1.09); PROTHROMBIN TIME (PATIENT) 19.7 SEC (9.7-13.0)
--- NOTE | 2018-09-20 00:38 | HP ---
CHIEF COMPLAINT:vomiting blood PCP: None HISTORY OF PRESENT ILLNESS:history per ED records as pt was found intubated and family was away already The patient is a year old male, with a significant past medical history of liver cancer, cirrhosis, hepatitis C, and DM who presents to the emergency department via EMS, with bright red blood upper GI bleeding that began this a few hours prior to his arrival to the ED. The patient was altered, actively vomiting bright red blood, and hypotensive. The patient was admitted here at [facility] last year for abdominal pain with neoplasm seen on liver per MRI. ER course was notable for: (1)EGD with massive bleeding (2)5 PRBCS , 2 FFP (3)CBC, CMP Recent Travel:denies PAST MEDICAL HISTORY: Cirrhosis, Hepatocellular carcinoma, Esophageal varices, Hep C (treated successfully many years ago), DM 2, Portal vein thrombosis PAST SURGICAL HISTORY: appendectomy Social History: Smoking:former smoker Alcohol:denies Drugs: denies Family History:non contributory Allergies No Known Allergies Allergy (Verified 09/19/18 19:01) HOME MEDICATIONS: Home Medications Medication Instructions Recorded Alogliptin Javier/Metformin HCl 1 each PO BID 02/16/18 [Alogliptin-Metformin 12.5-1000] Glipizide [Glipizide ER] 2.5 mg PO DAILY 02/16/18 Nadolol 40 mg PO DAILY 02/16/18 Aspirin [Aspirin EC] 81 mg PO DAILY 02/19/18 Docusate Sodium 2 cap PO PRN PRN 02/19/18 Omeprazole 40 mg PO DAILY 02/19/18 REVIEW OF SYSTEMS not able to obtain PHYSICAL EXAMINATION Vital Signs - 24 hr 09/19/18 09/19/18 09/19/18 19:00 19:25 19:45 Temperature Pulse Rate 110 H Pulse Rate [ 100 H 110 H Apical] Respiratory 22 H 26 H 20 Rate Blood Pressure 79/51 L Blood Pressure 88/59 L 117/79 [Right Arm] O2 Sat by Pulse 95 100 97 Oximetry (%) 09/19/18 09/19/18 09/19/18 19:55 21:40 23:43 Temperature 97.8 F Pulse Rate Pulse Rate [ 109 H 92 H Apical] Respiratory 20 20 23 H Rate Blood Pressure Blood Pressure 142/88 102/71 [Right Arm] O2 Sat by Pulse 98 98 Oximetry (%) GENERAL: intubated , sedated , blood out of his mouth HEAD: NC/AT , EYES: pin poit pupil, icteric sclera NECK: supple LUNGS: CTA anteriorly HEART: sinus tachy , no MRG ABDOMEN: ascitic abdomen distended, + Shifting dullness , + BS LOWER EXTREMITIES: 2+ pulses, warm, well-perfused. No calf tenderness. trace peripheral edema R>L . NEUROLOGICAL: intubated , partially sedated , respond with shaking his head Laboratory Results - last 24 hr 09/19/18 09/19/18 09/19/18 19:03 19:03 19:03 WBC Cancelled Corrected WBC (auto) Cancelled RBC Cancelled Hgb Cancelled Hct Cancelled MCV Cancelled MCH Cancelled MCHC Cancelled RDW Cancelled Plt Count Cancelled MPV Cancelled Absolute Neuts (auto) Cancelled Neutrophils % Cancelled Lymphocytes % Cancelled Monocytes % Cancelled Eosinophils % Cancelled Basophils % Cancelled Nucleated RBC % Cancelled Platelet Estimate Cancelled Platelet Comment Cancelled PT with INR Cancelled INR Cancelled PTT (Actin FS) Anticoagulation Therapy ABG pH ABG pCO2 at Pt Temp ABG pO2 at Pt Temp ABG HCO3 ABG O2 Sat (Measured) ABG O2 Content ABG Base Excess Carboxyhemoglobin Methemoglobin O2 Delivery Device Oxygen Flow Rate Vent Mode Vent Rate Mechanical Rate Pressure Support Vent Sodium 131 L Potassium 6.0 H Chloride 102 Carbon Dioxide 22 Anion Gap 7 L BUN 14 Creatinine 0.7 Creat Clearance w eGFR > 60 Random Glucose 195 H Calcium 7.4 L Total Bilirubin 4.0 H AST 229 H ALT 105 H Alkaline Phosphatase 202 H Creatine Kinase 159 Creatine Kinase Index 0.6 CK-MB (CK-2) < 1.0 Troponin I < 0.02 Total Protein 6.0 L Albumin 1.3 L Blood Type Antibody Screen Crossmatch 09/19/18 09/19/18 09/19/18 19:03 19:39 19:39 WBC Cancelled Corrected WBC (auto) Cancelled RBC Cancelled Hgb Cancelled Hct Cancelled MCV Cancelled MCH Cancelled MCHC Cancelled RDW Cancelled Plt Count Cancelled MPV Cancelled Absolute Neuts (auto) Cancelled Neutrophils % Cancelled Lymphocytes % Cancelled Monocytes % Cancelled Eosinophils % Cancelled Basophils % Cancelled Nucleated RBC % Cancelled Platelet Estimate Cancelled Platelet Comment Cancelled PT with INR 21.30 H INR 1.79 H PTT (Actin FS) Anticoagulation Therapy ABG pH ABG pCO2 at Pt Temp ABG pO2 at Pt Temp ABG HCO3 ABG O2 Sat (Measured) ABG O2 Content ABG Base Excess Carboxyhemoglobin Methemoglobin O2 Delivery Device Oxygen Flow Rate Vent Mode Vent Rate Mechanical Rate Pressure Support Vent Sodium Potassium Chloride Carbon Dioxide Anion Gap BUN Creatinine Creat Clearance w eGFR Random Glucose Calcium Total Bilirubin AST ALT Alkaline Phosphatase Creatine Kinase Creatine Kinase Index CK-MB (CK-2) Troponin I Total Protein Albumin Blood Type A NEGATIVE Antibody Screen Negative Crossmatch See Detail 09/19/18 09/19/18 09/19/18 19:39 19:39 19:39 WBC Corrected WBC (auto) RBC Hgb Hct MCV MCH MCHC RDW Plt Count MPV Absolute Neuts (auto) Neutrophils % Lymphocytes % Monocytes % Eosinophils % Basophils % Nucleated RBC % Platelet Estimate Platelet Comment PT with INR INR PTT (Actin FS) 29.2 Anticoagulation Therapy ABG pH ABG pCO2 at Pt Temp ABG pO2 at Pt Temp ABG HCO3 ABG O2 Sat (Measured) ABG O2 Content ABG Base Excess Carboxyhemoglobin Methemoglobin O2 Delivery Device Oxygen Flow Rate Vent Mode Vent Rate Mechanical Rate Pressure Support Vent Sodium Cancelled Potassium Cancelled Chloride Cancelled Carbon Dioxide Cancelled Anion Gap Cancelled BUN Cancelled Creatinine Cancelled Creat Clearance w eGFR Cancelled Random Glucose Cancelled Calcium Cancelled Total Bilirubin Cancelled AST Cancelled ALT Cancelled Alkaline Phosphatase Cancelled Creatine Kinase Creatine Kinase Index CK-MB (CK-2) Troponin I Total Protein Cancelled Albumin Cancelled Blood Type A NEGATIVE Antibody Screen Negative Crossmatch See Detail 09/19/18 09/19/18 09/19/18 19:43 20:05 20:05 WBC 14.5 H Corrected WBC (auto) RBC 3.36 L Hgb 8.6 L Hct 26.9 L D MCV 80.1 MCH 25.7 D MCHC 32.1 RDW 22.6 H Plt Count 456 H D MPV 9.5 Absolute Neuts (auto) Neutrophils % Lymphocytes % Monocytes % Eosinophils % Basophils % Nucleated RBC % Platelet Estimate Platelet Comment PT with INR 22.00 H INR 1.85 H PTT (Actin FS) Anticoagulation Therapy No Result Required. ABG pH 7.30 L ABG pCO2 at Pt Temp 38.8 ABG pO2 at Pt Temp 83.4 ABG HCO3 18.6 L ABG O2 Sat (Measured) 93.9 L ABG O2 Content 8.5 L* ABG Base Excess -6.7 L Carboxyhemoglobin 1.1 Methemoglobin 0.5 O2 Delivery Device No Result Required. Oxygen Flow Rate No Result Required. Vent Mode No Result Required. Vent Rate No Result Required. Mechanical Rate No Result Required. Pressure Support Vent No Result Required. Sodium Potassium Chloride Carbon Dioxide Anion Gap BUN Creatinine Creat Clearance w eGFR Random Glucose Calcium Total Bilirubin AST ALT Alkaline Phosphatase Creatine Kinase Creatine Kinase Index CK-MB (CK-2) Troponin I Total Protein Albumin Blood Type Antibody Screen Crossmatch 09/19/18 09/19/18 09/19/18 20:05 20:47 23:59 WBC 17.1 H Corrected WBC (auto) RBC 3.40 L Hgb 9.2 L Hct 27.3 L MCV 80.4 MCH 27.0 MCHC 33.6 RDW 20.8 H Plt Count 488 H MPV 9.8 Absolute Neuts (auto) Neutrophils % Lymphocytes % Monocytes % Eosinophils % Basophils % Nucleated RBC % Platelet Estimate Platelet Comment PT with INR INR PTT (Actin FS) Anticoagulation Therapy ABG pH ABG pCO2 at Pt Temp ABG pO2 at Pt Temp ABG HCO3 ABG O2 Sat (Measured) ABG O2 Content ABG Base Excess Carboxyhemoglobin Methemoglobin O2 Delivery Device Oxygen Flow Rate Vent Mode Vent Rate Mechanical Rate Pressure Support Vent Sodium 136 133 L Potassium 5.5 H 6.1 H* Chloride 106 104 Carbon Dioxide 21 22 Anion Gap 9 7 L BUN 13 14 Creatinine 0.8 0.8 Creat Clearance w eGFR > 60 > 60 Random Glucose 181 H 187 H Calcium 6.9 L* 7.3 L Total Bilirubin 3.5 H 4.6 H AST 164 H 215 H ALT 27 35 Alkaline Phosphatase 180 H 189 H Creatine Kinase Creatine Kinase Index CK-MB (CK-2) Troponin I Total Protein 5.1 L 5.5 L Albumin 1.2 L 1.3 L Blood Type Antibody Screen Crossmatch 09/19/18 23:59 WBC Corrected WBC (auto) RBC Hgb Hct MCV MCH MCHC RDW Plt Count MPV Absolute Neuts (auto) Neutrophils % Lymphocytes % Monocytes % Eosinophils % Basophils % Nucleated RBC % Platelet Estimate Platelet Comment PT with INR 19.70 H INR 1.66 H PTT (Actin FS) Anticoagulation Therapy ABG pH ABG pCO2 at Pt Temp ABG pO2 at Pt Temp ABG HCO3 ABG O2 Sat (Measured) ABG O2 Content ABG Base Excess Carboxyhemoglobin Methemoglobin O2 Delivery Device Oxygen Flow Rate Vent Mode Vent Rate Mechanical Rate Pressure Support Vent Sodium Potassium Chloride Carbon Dioxide Anion Gap BUN Creatinine Creat Clearance w eGFR Random Glucose Calcium Total Bilirubin AST ALT Alkaline Phosphatase Creatine Kinase Creatine Kinase Index CK-MB (CK-2) Troponin I Total Protein Albumin Blood Type Antibody Screen Crossmatch CBC, [facility] 09/19/18 23:59 ASSESSMENT/PLAN: Pt is a 57 y/o M with PMH Cirrhosis, Hep C (per pt, treated successfully many years ago), DM 2, appendectomy who presented with upper GI bleed due to esophaeal varices was intubated and sedated in ED and admitted to ICU # Upper GI bleed 2/2 esophageal varices * Intubated sedated in ED * 2 Large IV pores * Type and screen * H/H Q4hr * transfuse for hgb below 7 , given 5 units PRBCS and 2 FFP so far * Octeriotide drip * PPI drip vs 40 BID same results * Ceftriaxone 1 gm daily proph for infection * GI cosnult Dr Mike Hollis * ICU monitor * hold ASA , * IV fluids NS @ 75 cc /hr * maintain blood pressure MAP > 65 * family refuse DNR/DNI * was seen [facility] and hospice was recommended * EGD with sever active bleeding and clots not sure if there is perforation , prognosis is poor # HYperkalmia * treat medically with D50 and insulin * we can not use Kayexalate suppositorydue to possible perforation * D5 @ 75 CC and ISS to shift K into cells , consult Nephro in AM # Portal HTN # Cirrhosis # HCC #H/O HEPc * conservative treatment #DM * hold oral agents * BGM ACHS * ISS ACHS #FEN * NS Bolus and maintence at 75 CC/hr switch to D5 fo hyperkalemia * monitor lytes * NPO #PPx * SCDS , no chemical prophylaxis * GI: PPI drip #Dispo * ICU # Full code Visit type - Emergency Visit Emergency Visit: Yes ED Registration Date: 09/19/18 Care time: The patient presented to the Emergency Department on the above date and was hospitalized for further evaluation of their emergent condition. - New Patient This patient is new to me today: Yes Date on this admission: 09/20/18 - Critical Care Critical Care patient: Yes Total Critical Care Time (in minutes): 45 Critical Care Statement: The care of this patient involved high complexity decision making to prevent further life threatening deterioration of the patient 's condition and/or to evaluate & treat vital organ system(s) failure or risk of failure.
[2018-09-20 00:40] LABS: ALBUMIN 1.6 g/dl (3.4-5.0); ALK PHOS 164 U/L (45-117); ANION GAP 6 MMOL/L (8-16); BILIRUBIN,TOTAL 7.8 mg/dL (0.2-1); BLOOD UREA NITROGEN 16 mg/dL (7-18); CALCIUM 7.3 mg/dL (8.5-10.1); CHLORIDE 104 mmol/L (98-107); CO2 23 mmol/L (21-32); CREATININE 0.7 mg/dL (0.55-1.3); GLUCOSE,RANDOM 188 mg/dL (74-106); PHOSPHOROUS 4.7 mg/dL (2.5-4.9); SGOT/AST 233 U/L (15-37); SGPT/ALT 42 U/L (13-61); SODIUM 133 mmol/L (136-145); TOT PROT 5.3 g/dl (6.4-8.2)
[2018-09-20 00:50] LABS: POTASSIUM 6.2 mmol/L (3.5-5.1)
[2018-09-20] MEDS ORDERED: SODIUM CHLORIDE 1,000 ML IV SCH (01:00)
[2018-09-20] MEDS: FENTANYL INJECTION 500 MCG in DEXTROSE 5%-WATER - 90 ML IVPB SCH ×5 (01:30→23:53)
[2018-09-20] MEDS ORDERED: fentaNYL CITRATE 250 MCG/5 ML VIAL ONE ×3 (01:33→17:39)
[2018-09-20 01:59] LABS: ANION GAP 6 MMOL/L (8-16); BLOOD UREA NITROGEN 17 mg/dL (7-18); CALCIUM 7.3 mg/dL (8.5-10.1); CHLORIDE 103 mmol/L (98-107); CO2 23 mmol/L (21-32); CREATININE 0.8 mg/dL (0.55-1.3); GLUCOSE,RANDOM 263 mg/dL (74-106); SODIUM 132 mmol/L (136-145)
[2018-09-20 02:00] LABS: POTASSIUM 6.3 mmol/L (3.5-5.1)
[2018-09-20] MEDS ORDERED: INSULIN REGULAR HUMAN 100 UNITS/ML *VIAL IVPUSH ONE ×2 (02:11→17:56)
[2018-09-20 02:12] LABS: ACTIVATED PTT 35.4 SECONDS (25.2-36.5)
[2018-09-20] MEDS ORDERED: DEXTROSE 50%-WATER - 25 GM/50 ML VIAL IVPUSH ONE ×3 (02:12→17:55)
[2018-09-20] MEDS ORDERED: DEXTROSE 50%-WATER - 25 GM/50 ML VIAL ONE ×2 (02:20→18:05)
[2018-09-20] MEDS: ALBUTEROL SO4 0.083% IH SOL 2.5 MG/3 ML VIAL.NEB. NEB SCH ×3 (02:33→03:15)
--- NOTE | 2018-09-20 03:23 | PN ---
Teaching Attending Note Name of Resident: Lincoln Willams ATTENDING PHYSICIAN STATEMENT I saw and evaluated the patient. I reviewed the resident's note and discussed the case with the resident. I agree with the resident's findings and plan as documented. SUBJECTIVE: Patient is a 57 year old man with PMH of hepatocellular carcinoma and esophageal varices presented to the ER with severe upper GI bleed. Patient had altered mental status on arrival and was intubated in the ER for airway protection. He got 2 L of normal saline, 1 FFP, 2 PRBC. Octreotide and protonix drip was started and he was taken for Upper Endoscopy. EGD noted extensive active bleeding in the esophagus, large clot in the body and fundus of the stomach, but no active bleeding was seen in the stomach. Bleeding was too rapid so the site of the active bleeding couldn't be visualized and the procedure was terminated. Patient was then transferred to ICU for further management. He gets all of his treatment done at [facility]. The ER physician contacted [facility] to arrange for transfer. As per the physician (Onc fellow) at [facility], they recommended home hospice however patient's family denied home hospice and wanted to continue medical management. OBJECTIVE: Intubated and sedated on fentanyl; intermittently restless on the ventilator Vital Signs Period Temp Pulse Resp BP Sys/Louis Pulse Ox Last 24 Hr 97.8 F 90-110 19-26 79-142/51-89 95-100 HEENT: No Jaundice, eye redness or discharge, PERRLA, EOMI. +Jaundice. Fresh blood oozing from the mouth and in the NG tube. Normocephalic, atraumatic. External ears are normal; No nasal discharge. Neck: Supple, nontender. No palpable adenopathy or thyromegaly. No JVD Chest: Good effort. Clear to auscultation and percussion. Heart: Sinus tachycardia. Regular. No S3, rub or murmur Abdomen: Distended, tense, nontender and no palpable HSM. No rebound or guarding. Diminished bowel sounds. Ext: Peripheral pulses intact. Leg edema. Skin: Warm and dry. No petechiae, rash or ecchymosis. Neuro: Sedated with fentanyl on the ventilator. Intermittently restless. Moves all limbs. Psych: Unable to assess Current Medications Generic Name Dose Route Start Last Admin Trade Name Freq PRN Reason Stop Dose Admin Chlorhexidine Gluconate 1 applic 09/20/18 22:00 Hibiclens For Decolonization - TP HS ALYSA Octreotide Acetate 1,200 mcg/ 500 mls @ 20.83 mls/hr 09/19/18 19:00 09/19/18 21:00 Dextrose IVPB 20.83 mls/hr ASDIR ALYSA Administration 50 MCG/HR Fentanyl 500 mcg/ Dextrose 100 mls @ 0 mls/hr 09/19/18 19:30 09/20/18 01:30 IVPB 75 mcg/hr TITR ALYSA 15 mls/hr Administration Protocol 0 MCG/HR Pantoprazole Sodium 80 mg/ 100 mls @ 10 mls/hr 09/19/18 23:30 09/20/18 00:04 Sodium Chloride IVPB 10 mls/hr Q10H ALYSA Administration 8 MG/HR Ceftriaxone Sodium 1 gm/ 50 mls @ 100 mls/hr 09/20/18 10:00 Dextrose IVPB DAILY ALYSA Protocol Sodium Chloride 1,000 mls @ 75 mls/hr 09/20/18 01:00 09/20/18 01:29 Normal Saline - IV 75 mls/hr ASDIR ALYSA Administration Insulin Aspart 1 vial 09/20/18 07:00 Novolog Vial Sliding Scale - SQ ACHS ALYSA Protocol Midazolam HCl 5 mg 09/19/18 20:45 09/19/18 20:42 Versed - IVPUSH 5 mg PRN ALYSA Administration Mupirocin 1 applic 09/20/18 10:00 Bactroban Ointment (For Decolonization) - NS 09/25/18 09:59 BID [facility] Home Medications Medication Instructions Recorded Alogliptin Javier/Metformin HCl 1 each PO BID 02/16/18 [Alogliptin-Metformin 12.5-1000] Glipizide [Glipizide ER] 2.5 mg PO DAILY 02/16/18 Nadolol 40 mg PO DAILY 02/16/18 Aspirin [Aspirin EC] 81 mg PO DAILY 02/19/18 Docusate Sodium 2 cap PO PRN PRN 02/19/18 Omeprazole 40 mg PO DAILY 02/19/18 Abnormal Lab Results 09/19/18 09/19/18 09/19/18 19:03 19:03 19:39 WBC RBC Hgb Hct RDW Plt Count PT with INR 21.30 H INR 1.79 H Fibrinogen ABG pH ABG HCO3 ABG O2 Sat (Measured) ABG O2 Content ABG Base Excess Sodium 131 L Potassium 6.0 H Anion Gap 7 L Random Glucose 195 H Lactic Acid Calcium 7.4 L Total Bilirubin 4.0 H AST 229 H ALT 105 H Alkaline Phosphatase 202 H Total Protein 6.0 L Albumin 1.3 L Crossmatch See Detail 09/19/18 09/19/18 09/19/18 19:39 19:43 20:05 WBC 14.5 H RBC 3.36 L Hgb 8.6 L Hct 26.9 L D RDW 22.6 H Plt Count 456 H D PT with INR INR Fibrinogen ABG pH 7.30 L ABG HCO3 18.6 L ABG O2 Sat (Measured) 93.9 L ABG O2 Content 8.5 L* ABG Base Excess -6.7 L Sodium Potassium Anion Gap Random Glucose Lactic Acid Calcium Total Bilirubin AST ALT Alkaline Phosphatase Total Protein Albumin Crossmatch See Detail 09/19/18 09/19/18 09/19/18 20:05 20:05 20:47 WBC RBC Hgb Hct RDW Plt Count PT with INR 22.00 H INR 1.85 H Fibrinogen ABG pH ABG HCO3 ABG O2 Sat (Measured) ABG O2 Content ABG Base Excess Sodium 133 L Potassium 5.5 H 6.1 H* Anion Gap 7 L Random Glucose 181 H 187 H Lactic Acid Calcium 6.9 L* 7.3 L Total Bilirubin 3.5 H 4.6 H AST 164 H 215 H ALT Alkaline Phosphatase 180 H 189 H Total Protein 5.1 L 5.5 L Albumin 1.2 L 1.3 L Crossmatch 09/19/18 09/19/18 09/19/18 23:30 23:59 23:59 WBC 17.1 H RBC 3.40 L Hgb 9.2 L Hct 27.3 L RDW 20.8 H Plt Count 488 H PT with INR 19.70 H INR 1.66 H Fibrinogen 223.0 L ABG pH ABG HCO3 ABG O2 Sat (Measured) ABG O2 Content ABG Base Excess Sodium Potassium Anion Gap Random Glucose Lactic Acid Calcium Total Bilirubin AST ALT Alkaline Phosphatase Total Protein Albumin Crossmatch 09/19/18 09/20/18 09/20/18 23:59 00:15 01:15 WBC RBC Hgb Hct RDW Plt Count PT with INR INR Fibrinogen ABG pH ABG HCO3 ABG O2 Sat (Measured) ABG O2 Content ABG Base Excess Sodium 133 L 132 L Potassium 6.2 H* 6.3 H* Anion Gap 6 L 6 L Random Glucose 188 H 263 H Lactic Acid 3.9 H* Calcium 7.3 L 7.3 L Total Bilirubin 7.8 H AST 233 H ALT Alkaline Phosphatase 164 H Total Protein 5.3 L Albumin 1.6 L Crossmatch ASSESSMENT AND PLAN: 1. Massive upper GI bleeding - Likely due to bleeding esophageal varices and/or gastric source. Patient is currently on his fourth unit of PRBC transfusion, had gotten 2 unis FFP and is also on Protonix and octreotide drips. Getting Rocephin 2 gm IV stat. Hyperkalemia is unexplained but is being treated with D50W, insulin and Ca gluconate. No EKG changes of hyperkalemia. As a continuation of the efforts to transfer him to [facility], the ER physician spoke with Dr. Zelaya ([facility] at [facility]) who requested for repeat labs and that depending upon the most recent labs, vitals and stability of the patient for transport, she will decide whether to accept the patient for further management. I and the medical equipment technician (Dr. Bush) met with four of his family members in the waiting room and i explained his current condition to them and all the therapeutic interventions that are being done. Earlier on, the GI product support consultant had discussed the EGD findings with one of the family members. I explained that at this time patient is too unstable for transfer to [facility] hospital. We explained that we will continue current aggressive measures and also possibly get a scan of his abdomen once he is stable, before reaching out again to [facility] for transfer. His abdominal distension has been getting progressively worse since presentation, but he is too unstable to go to CT scan. His IV fentanyl drip was just titrated up because of restlessness on the ventilator. The family members verbalized understanding and all their questions were answered satisfactorily. 2. Severe Hypoalbuminemia - Possibly due to combined effects of malnutrition, liver disease and inflammation associated with comorbid chronic conditions. Once he is stable, will ensure adequate dietary protein intake and also consult conflict resolution professional. 3. DM For now, we will hold the home diabetes drugs and implement sliding scale insulin regimen. Provide comprehensive diabetes care with patient teaching and counseling about the importance of adherence to prescribed diabetes regimen, euglycemia, eye care and foot care. 4. DVT prophylaxis - SCDs, TEDs 5. Advance directives - Full code
[2018-09-20] MEDS: INSULIN SLIDING SCALE (NOVOLOG) 1 VIAL SQ SCH ×4 (06:11→21:31)
[2018-09-20 06:15] LABS: BASO % 0.3 % (0-2.0); HEMATOCRIT 31.8 % (35.4-49); HEMOGLOBIN 10.6 GM/dL (11.7-16.9); LYMPH % 11.6 % (8-40); MCH 27.1 pg (25.7-33.7); MCHC 33.2 g/dl (32.0-35.9); MEAN CELL VOLUME 81.8 fl (80-96); MEAN PLT VOLUME 9.6 fl (7.5-11.1); MONO % 10.7 % (3.8-10.2); NEUT % 77.4 % (42.8-82.8); PLATELET COUNT 406 K/MM3 (134-434); RBC 3.89 M/mm3 (4.00-5.60); RDW 19.3 % (11.9-15.9); WHITE BLOOD COUNT 17.1 K/mm3 (4.0-10.0)
[2018-09-20] MEDS ORDERED: SODIUM POLYSTYRENE SULFONATE 15 GM/60 ML BOTTLE RC ONE (06:17)
[2018-09-20 06:23] LABS: INR 1.64 (0.83-1.09); PROTHROMBIN TIME (PATIENT) 19.4 SEC (9.7-13.0)
[2018-09-20 06:26] LABS: ACTIVATED PTT 36.2 SECONDS (25.2-36.5)
[2018-09-20] MEDS: MIDAZOLAM HCL 2 MG/2 ML SINGLE DOSE VIAL IVPUSH PRN ×2 (06:44→16:30)
[2018-09-20 07:04] LABS: ALBUMIN 1.6 g/dl (3.4-5.0); ALK PHOS 155 U/L (45-117); ANION GAP 6 MMOL/L (8-16); BLOOD UREA NITROGEN 20 mg/dL (7-18); CALCIUM 7.5 mg/dL (8.5-10.1); CHLORIDE 102 mmol/L (98-107); CO2 23 mmol/L (21-32); CREATININE 0.8 mg/dL (0.55-1.3); GLUCOSE,RANDOM 245 mg/dL (74-106); MAGNESIUM 2.2 mg/dL (1.8-2.4); N-TERMINAL BNP 107.9 pg/ml (5-125); POTASSIUM 5.6 mmol/L (3.5-5.1); SGOT/AST 461 U/L (15-37); SGPT/ALT 73 U/L (13-61); SODIUM 132 mmol/L (136-145); TOT PROT 5.5 g/dl (6.4-8.2)
--- NOTE | 2018-09-20 08:32 | PN ---
GI Progress Note Subjective: Events overnight reviewed, discussed EGD findings with Dr. Mckeon this morning Remains intubated, no active hematemesis Received 5 U PRBC, FFP - Objective Vital Signs: Vital Signs Temperature 97.6 F 09/20/18 06:00 Pulse Rate 99 H 09/20/18 06:00 Respiratory Rate 18 09/20/18 06:43 Blood Pressure 104/87 09/20/18 06:00 O2 Sat by Pulse Oximetry (%) 100 09/20/18 00:00 Constitutional: Calm Eyes: Yes: Sclera Icterus Cardiovascular: Yes: Tachycardia Respiratory: Yes: Diminished (at) Gastrointestinal Inspection: Yes: Distention. No: Scars ...Auscultate: Yes: Hypoactive Bowel Sounds ...Percussion: Yes: Tympanitic (generalized tympany including at flanks and to some extent noted upon percussion of liver) Edema: No (No LE edema) Neurological: Yes: Other (Sedated on vent) Labs: CBC, BMP 09/20/18 05:30 09/20/18 05:30 INR, PTT INR 1.64 (0.83-1.09) H 09/20/18 05:30 Fibrinogen 223.0 mg/dL (238-498) L 09/19/18 23:30 Hepatic Panel Total Bilirubin 13.0 mg/dL (0.2-1) H 09/20/18 05:30 AST 461 U/L (15-37) H 09/20/18 05:30 ALT 73 U/L (13-61) H 09/20/18 05:30 Alkaline Phosphatase 155 U/L (45-117) H 09/20/18 05:30 Albumin 1.6 g/dl (3.4-5.0) L 09/20/18 05:30 Problem List - Problems (1) UGIB (upper gastrointestinal bleed) Assessment/Plan: With history of need for serial EVL, massive UGIB noted on EGD last night Continue with supportive measures: IV PPI, Octrotide infusion, IV Abx Monitor for signs of over active bleeding Concern re: abdominal distention and significant tympany. Asked ICU team to obtain stat AXR to evaluate for free air. When stable, may need CT C/A/P depending on results When patient stable enough, transer to tertiary care center Overall poor prognosis. Code(s): K92.2 - GASTROINTESTINAL HEMORRHAGE, UNSPECIFIED
[2018-09-20] MEDS ORDERED: cefTRIAXone SODIUM 1 GM VIAL ONE (09:15)
[2018-09-20] MEDS ORDERED: DEXTROSE 5%-WATER - 50 ML IVPB ONE ×2 (09:15→21:22)
[2018-09-20] MEDS: MUPIROCIN 2% TOPICAL OINTMENT FOR DECOLONIZATION NS SCH ×2 (09:40→21:26)
[2018-09-20] MEDS ORDERED: CEFTRIAXONE 1 GM in DEXTROSE 5%-WATER - 50 ML IVPB SCH (10:00)
[2018-09-20 10:06] LABS: BILIRUBIN,DIRECT 8.7 mg/dL (0.0-0.2)
--- NOTE | 2018-09-20 10:49 | EKG ---
Test Reason : Blood Pressure : / mmHG Vent. Rate : 109 BPM Atrial Rate : 109 BPM P-R Int : 164 ms QRS Dur : 090 ms QT Int : 354 ms P-R-T Axes : 033 083 019 degrees QTc Int : 476 ms SINUS TACHYCARDIA POSSIBLE INFERIOR INFARCT , AGE UNDETERMINED ANTEROLATERAL INFARCT (CITED ON OR BEFORE 19-SEP-2018) ABNORMAL ECG WHEN COMPARED WITH ECG OF 20-SEP-2018 02:06, BORDERLINE CRITERIA FOR INFERIOR INFARCT ARE NOW PRESENT Confirmed by PO AYOUB MD ([id number]) on 09/20/2018 10:48:48 AM Referred By: Confirmed By:PO AYOUB MD
--- NOTE | 2018-09-20 10:51 | EKG ---
Test Reason : Blood Pressure : / mmHG Vent. Rate : 092 BPM Atrial Rate : 092 BPM P-R Int : 176 ms QRS Dur : 088 ms QT Int : 386 ms P-R-T Axes : 018 059 -08 degrees QTc Int : 477 ms NORMAL SINUS RHYTHM LOW VOLTAGE QRS ANTEROLATERAL INFARCT (CITED ON OR BEFORE 19-SEP-2018) ABNORMAL ECG WHEN COMPARED WITH ECG OF 19-SEP-2018 19:01, QUESTIONABLE CHANGE IN INITIAL FORCES OF LATERAL LEADS Confirmed by PO AYOUB MD ([id number]) on 09/20/2018 10:51:11 AM Referred By: Confirmed By:PO AYOUB MD
--- NOTE | 2018-09-20 10:51 | EKG ---
Test Reason : Blood Pressure : / mmHG Vent. Rate : 103 BPM Atrial Rate : 103 BPM P-R Int : 166 ms QRS Dur : 086 ms QT Int : 372 ms P-R-T Axes : 026 017 001 degrees QTc Int : 487 ms SINUS TACHYCARDIA INFERIOR INFARCT , AGE UNDETERMINED CANNOT RULE OUT ANTERIOR INFARCT , AGE UNDETERMINED ABNORMAL ECG NO PREVIOUS ECGS AVAILABLE Confirmed by PO AOYUB MD ([id number]) on 09/20/2018 10:50:41 AM Referred By: Confirmed By:PO AYOUB MD
[2018-09-20 11:09] LABS: ALLENS TEST POSITIVE
--- NOTE | 2018-09-20 11:41 | PN ---
Teaching Attending Note Name of Resident: Afsaneh Richardson ATTENDING PHYSICIAN STATEMENT I saw and evaluated the patient. I reviewed the resident's note and discussed the case with the resident. I agree with the resident's findings and plan as documented. SUBJECTIVE: Patient seen and examined in the ICU. Intubated on AC Mode of vent. Sedated. Overnight noted to have gross abdominal distention. No pressors. Right femoral TLC inserted overnight. Intake & Output 09/17/18 09/18/18 09/19/18 09/20/18 23:59 23:59 23:59 23:59 Intake Total 1600 1492 Output Total 50 300 Balance 1550 1192 Weight 180 lb 181 lb 7 oz Last Vital Signs Temp Pulse Resp BP Pulse Ox 99.3 F 86 20 96/79 100 09/20/18 10:00 09/20/18 10:00 09/20/18 11:17 09/20/18 10:00 09/20/18 00:00 Active Medications Chlorhexidine Gluconate (Hibiclens For Decolonization -) 1 applic TP HS ALYSA Octreotide Acetate 1,200 mcg/ (Dextrose) 500 mls @ 20.83 mls/hr IVPB ASDIR ALYSA Last Admin: 09/19/18 21:00 Dose: 20.83 mls/hr Fentanyl 500 mcg/ Dextrose 100 mls @ 0 mls/hr IVPB TITR ALYSA; Protocol Last Admin: 09/20/18 10:39 Dose: 75 mcg/hr, 15 mls/hr Pantoprazole Sodium 80 mg/ (Sodium Chloride) 100 mls @ 10 mls/hr IVPB Q10H ALYSA Last Admin: 09/20/18 00:04 Dose: 10 mls/hr Ceftriaxone Sodium 1 gm/ (Dextrose) 50 mls @ 100 mls/hr IVPB DAILY ALYSA; Protocol Last Admin: 09/20/18 09:39 Dose: 100 mls/hr Sodium Chloride (Normal Saline -) 1,000 mls @ 75 mls/hr IV ASDIR ALYSA Last Admin: 09/20/18 01:29 Dose: 75 mls/hr Insulin Aspart (Novolog Vial Sliding Scale -) 1 vial SQ ACHS ALYSA; Protocol Last Admin: 09/20/18 06:11 Dose: 6 units Midazolam HCl (Versed -) 2 mg IVPUSH Q4H PRN PRN Reason: AGITATION Last Admin: 09/20/18 06:44 Dose: 2 mg Mupirocin (Bactroban Ointment (For Decolonization) -) 1 applic NS BID ALYSA Stop: 09/25/18 09:59 Last Admin: 09/20/18 09:40 Dose: 1 applic GENERAL: Intubated and sedated. EYES: pupils are sluggishly reactive EARS, NOSE, THROAT: dried blood noted in mouth NECK: No JVD. LUNGS: few scattered rhonchi, mechanically ventilated HEART: Regular rate and rhythm, normal S1 and S2 without murmur. ABDOMEN: Gross distention, hypoactive BS. UPPER EXTREMITIES: No peripheral edema. LOWER EXTREMITIES: No peripheral edema. NEUROLOGICAL: Intubated. Sedated. SKIN: No lesions or rashes. Laboratory Results - last 24 hr 09/19/18 09/19/18 09/19/18 19:03 19:03 19:03 WBC Cancelled Corrected WBC (auto) Cancelled RBC Cancelled Hgb Cancelled Hct Cancelled MCV Cancelled MCH Cancelled MCHC Cancelled RDW Cancelled Plt Count Cancelled MPV Cancelled Absolute Neuts (auto) Cancelled Neutrophils % Cancelled Lymphocytes % Cancelled Monocytes % Cancelled Eosinophils % Cancelled Basophils % Cancelled Nucleated RBC % Cancelled Platelet Estimate Cancelled Platelet Comment Cancelled PT with INR Cancelled INR Cancelled PTT (Actin FS) Anticoagulation Therapy ABG pH ABG pCO2 at Pt Temp ABG pO2 at Pt Temp ABG HCO3 ABG O2 Sat (Measured) ABG O2 Content ABG Base Excess Carboxyhemoglobin Methemoglobin O2 Delivery Device Oxygen Flow Rate Vent Mode Vent Rate Mechanical Rate Pressure Support Vent Sodium 131 L Potassium 6.0 H Chloride 102 Carbon Dioxide 22 Anion Gap 7 L BUN 14 Creatinine 0.7 Creat Clearance w eGFR > 60 Random Glucose 195 H Calcium 7.4 L Total Bilirubin 4.0 H AST 229 H ALT 105 H Alkaline Phosphatase 202 H Creatine Kinase 159 Creatine Kinase Index 0.6 CK-MB (CK-2) < 1.0 Troponin I < 0.02 Total Protein 6.0 L Albumin 1.3 L Blood Type Antibody Screen Crossmatch 09/19/18 09/19/18 03 19:03 19:39 19:39 WBC Cancelled Corrected WBC (auto) Cancelled RBC Cancelled Hgb Cancelled Hct Cancelled MCV Cancelled MCH Cancelled MCHC Cancelled RDW Cancelled Plt Count Cancelled MPV Cancelled Absolute Neuts (auto) Cancelled Neutrophils % Cancelled Lymphocytes % Cancelled Monocytes % Cancelled Eosinophils % Cancelled Basophils % Cancelled Nucleated RBC % Cancelled Platelet Estimate Cancelled Platelet Comment Cancelled PT with INR 21.30 H INR 1.79 H PTT (Actin FS) Anticoagulation Therapy ABG pH ABG pCO2 at Pt Temp ABG pO2 at Pt Temp ABG HCO3 ABG O2 Sat (Measured) ABG O2 Content ABG Base Excess Carboxyhemoglobin Methemoglobin O2 Delivery Device Oxygen Flow Rate Vent Mode Vent Rate Mechanical Rate Pressure Support Vent Sodium Potassium Chloride Carbon Dioxide Anion Gap BUN Creatinine Creat Clearance w eGFR Random Glucose Calcium Total Bilirubin AST ALT Alkaline Phosphatase Creatine Kinase Creatine Kinase Index CK-MB (CK-2) Troponin I Total Protein Albumin Blood Type A NEGATIVE Antibody Screen Negative Crossmatch See Detail 09/19/18 09/19/18 09/19/18 19:39 19:39 19:39 WBC Corrected WBC (auto) RBC Hgb Hct MCV MCH MCHC RDW Plt Count MPV Absolute Neuts (auto) Neutrophils % Lymphocytes % Monocytes % Eosinophils % Basophils % Nucleated RBC % Platelet Estimate Platelet Comment PT with INR INR PTT (Actin FS) 29.2 Anticoagulation Therapy ABG pH ABG pCO2 at Pt Temp ABG pO2 at Pt Temp ABG HCO3 ABG O2 Sat (Measured) ABG O2 Content ABG Base Excess Carboxyhemoglobin Methemoglobin O2 Delivery Device Oxygen Flow Rate Vent Mode Vent Rate Mechanical Rate Pressure Support Vent Sodium Cancelled Potassium Cancelled Chloride Cancelled Carbon Dioxide Cancelled Anion Gap Cancelled BUN Cancelled Creatinine Cancelled Creat Clearance w eGFR Cancelled Random Glucose Cancelled Calcium Cancelled Total Bilirubin Cancelled AST Cancelled ALT Cancelled Alkaline Phosphatase Cancelled Creatine Kinase Creatine Kinase Index CK-MB (CK-2) Troponin I Total Protein Cancelled Albumin Cancelled Blood Type A NEGATIVE Antibody Screen Negative Crossmatch See Detail 09/19/18 09/19/18 09/19/18 19:43 20:05 20:05 WBC 14.5 H Corrected WBC (auto) RBC 3.36 L Hgb 8.6 L Hct 26.9 L D MCV 80.1 MCH 25.7 D MCHC 32.1 RDW 22.6 H Plt Count 456 H D MPV 9.5 Absolute Neuts (auto) Neutrophils % Lymphocytes % Monocytes % Eosinophils % Basophils % Nucleated RBC % Platelet Estimate Platelet Comment PT with INR 22.00 H INR 1.85 H PTT (Actin FS) Anticoagulation Therapy No Result Required. ABG pH 7.30 L ABG pCO2 at Pt Temp 38.8 ABG pO2 at Pt Temp 83.4 ABG HCO3 18.6 L ABG O2 Sat (Measured) 93.9 L ABG O2 Content 8.5 L* ABG Base Excess -6.7 L Carboxyhemoglobin 1.1 Methemoglobin 0.5 O2 Delivery Device No Result Required. Oxygen Flow Rate No Result Required. Vent Mode No Result Required. Vent Rate No Result Required. Mechanical Rate No Result Required. Pressure Support Vent No Result Required. Sodium Potassium Chloride Carbon Dioxide Anion Gap BUN Creatinine Creat Clearance w eGFR Random Glucose Calcium Total Bilirubin AST ALT Alkaline Phosphatase Creatine Kinase Creatine Kinase Index CK-MB (CK-2) Troponin I Total Protein Albumin Blood Type Antibody Screen Crossmatch 09/19/18 09/19/18 20:05 20:47 WBC Corrected WBC (auto) RBC Hgb Hct MCV MCH MCHC RDW Plt Count MPV Absolute Neuts (auto) Neutrophils % Lymphocytes % Monocytes % Eosinophils % Basophils % Nucleated RBC % Platelet Estimate Platelet Comment PT with INR INR PTT (Actin FS) Anticoagulation Therapy ABG pH ABG pCO2 at Pt Temp ABG pO2 at Pt Temp ABG HCO3 ABG O2 Sat (Measured) ABG O2 Content ABG Base Excess Carboxyhemoglobin Methemoglobin O2 Delivery Device Oxygen Flow Rate Vent Mode Vent Rate Mechanical Rate Pressure Support Vent Sodium 136 133 L Potassium 5.5 H 6.1 H* Chloride 106 104 Carbon Dioxide 21 22 Anion Gap 9 7 L BUN 13 14 Creatinine 0.8 0.8 Creat Clearance w eGFR > 60 > 60 Random Glucose 181 H 187 H Calcium 6.9 L* 7.3 L Total Bilirubin 3.5 H 4.6 H AST 164 H 215 H ALT 27 35 Alkaline Phosphatase 180 H 189 H Creatine Kinase Creatine Kinase Index CK-MB (CK-2) Troponin I Total Protein 5.1 L 5.5 L Albumin 1.2 L 1.3 L Blood Type Antibody Screen Crossmatch ASSESSMENT/PLAN: Acute Respiratory Failure Upper GI bleed: source could not be identified Cirrhosis Hepatocellular carcinoma Esophageal varices Hepatitis C (S/P treatment) DM2 Portal vein thrombosis R/O Perforation CT scan to be completed emergently AC Mode of vent Sedate for now IVF Normal transfusion thresholds Serial CBC PPI For possible NGT decompression once CT results are obtained Glycemic control Will reach out to [facility] where the patient is well known for possible tertiary intervention Overall prognosis appears grave. Dr Mcdaniels Critical care time spent in reviewing chart, evaluating patient and formulating plan - 36 minutes.
--- NOTE | 2018-09-20 12:57 | PN ---
Physical Exam: SUBJECTIVE: Patient seen and examined at bedside in ICU. Intubated and sedated. OBJECTIVE: Vital Signs Period Temp Pulse Resp BP Sys/Louis Pulse Ox Last 24 Hr 97.6 F-99.3 F 85-110 12-26 79-142/51-89 95-100 GENERAL: Intubated and sedated. HEENT: NC/AT, PERRLA, +scleral icterus NECK: Trachea midline, no LAD LUNGS: on ventilator HEART: tachycardic no m/r/g ABDOMEN: distended, tympanitic, positive fluid wave, diffusely jaundiced EXTREMITIES: 2+ pulses, warm, well-perfused, no LE edema NEUROLOGICAL: unable to assess PSYCH: unable to assess SKIN: diffusely jaundiced Laboratory Results - last 24 hr 09/19/18 09/19/18 09/19/18 19:03 19:03 19:03 WBC Cancelled Corrected WBC (auto) Cancelled RBC Cancelled Hgb Cancelled Hct Cancelled MCV Cancelled MCH Cancelled MCHC Cancelled RDW Cancelled Plt Count Cancelled MPV Cancelled Absolute Neuts (auto) Cancelled Neutrophils % Cancelled Lymphocytes % Cancelled Monocytes % Cancelled Eosinophils % Cancelled Basophils % Cancelled Nucleated RBC % Cancelled Platelet Estimate Cancelled Platelet Comment Cancelled PT with INR Cancelled INR Cancelled PTT (Actin FS) Fibrinogen Anticoagulation Therapy Puncture Site ABG pH ABG pCO2 at Pt Temp ABG pO2 at Pt Temp ABG HCO3 ABG O2 Sat (Measured) ABG O2 Content ABG Base Excess Tejas Test Carboxyhemoglobin Methemoglobin O2 Delivery Device Oxygen Flow Rate Vent Mode Vent Rate Mechanical Rate Pressure Support Vent Sodium 131 L Potassium 6.0 H Chloride 102 Carbon Dioxide 22 Anion Gap 7 L BUN 14 Creatinine 0.7 Creat Clearance w eGFR > 60 POC Glucometer Random Glucose 195 H Lactic Acid Calcium 7.4 L Phosphorus Magnesium Total Bilirubin 4.0 H Direct Bilirubin AST 229 H ALT 105 H Alkaline Phosphatase 202 H Ammonia Creatine Kinase 159 Creatine Kinase Index 0.6 CK-MB (CK-2) < 1.0 Troponin I < 0.02 B-Natriuretic Peptide Total Protein 6.0 L Albumin 1.3 L Blood Type Antibody Screen Crossmatch 09/19/18 09/19/18 09/19/18 19:03 19:39 19:39 WBC Cancelled Corrected WBC (auto) Cancelled RBC Cancelled Hgb Cancelled Hct Cancelled MCV Cancelled MCH Cancelled MCHC Cancelled RDW Cancelled Plt Count Cancelled MPV Cancelled Absolute Neuts (auto) Cancelled Neutrophils % Cancelled Lymphocytes % Cancelled Monocytes % Cancelled Eosinophils % Cancelled Basophils % Cancelled Nucleated RBC % Cancelled Platelet Estimate Cancelled Platelet Comment Cancelled PT with INR 21.30 H INR 1.79 H PTT (Actin FS) Fibrinogen Anticoagulation Therapy Puncture Site ABG pH ABG pCO2 at Pt Temp ABG pO2 at Pt Temp ABG HCO3 ABG O2 Sat (Measured) ABG O2 Content ABG Base Excess Tejas Test Carboxyhemoglobin Methemoglobin O2 Delivery Device Oxygen Flow Rate Vent Mode Vent Rate Mechanical Rate Pressure Support Vent Sodium Potassium Chloride Carbon Dioxide Anion Gap BUN Creatinine Creat Clearance w eGFR POC Glucometer Random Glucose Lactic Acid Calcium Phosphorus Magnesium Total Bilirubin Direct Bilirubin AST ALT Alkaline Phosphatase Ammonia Creatine Kinase Creatine Kinase Index CK-MB (CK-2) Troponin I B-Natriuretic Peptide Total Protein Albumin Blood Type A NEGATIVE Antibody Screen Negative Crossmatch See Detail 09/19/18 09/19/18 09/19/18 19:39 19:39 19:39 WBC Corrected WBC (auto) RBC Hgb Hct MCV MCH MCHC RDW Plt Count MPV Absolute Neuts (auto) Neutrophils % Lymphocytes % Monocytes % Eosinophils % Basophils % Nucleated RBC % Platelet Estimate Platelet Comment PT with INR INR PTT (Actin FS) 29.2 Fibrinogen Anticoagulation Therapy Puncture Site ABG pH ABG pCO2 at Pt Temp ABG pO2 at Pt Temp ABG HCO3 ABG O2 Sat (Measured) ABG O2 Content ABG Base Excess Tejas Test Carboxyhemoglobin Methemoglobin O2 Delivery Device Oxygen Flow Rate Vent Mode Vent Rate Mechanical Rate Pressure Support Vent Sodium Cancelled Potassium Cancelled Chloride Cancelled Carbon Dioxide Cancelled Anion Gap Cancelled BUN Cancelled Creatinine Cancelled Creat Clearance w eGFR Cancelled POC Glucometer Random Glucose Cancelled Lactic Acid Calcium Cancelled Phosphorus Magnesium Total Bilirubin Cancelled Direct Bilirubin AST Cancelled ALT Cancelled Alkaline Phosphatase Cancelled Ammonia Creatine Kinase Creatine Kinase Index CK-MB (CK-2) Troponin I B-Natriuretic Peptide Total Protein Cancelled Albumin Cancelled Blood Type A NEGATIVE Antibody Screen Negative Crossmatch See Detail 09/19/18 09/19/18 09/19/18 19:43 20:05 20:05 WBC 14.5 H Corrected WBC (auto) RBC 3.36 L Hgb 8.6 L Hct 26.9 L D MCV 80.1 MCH 25.7 D MCHC 32.1 RDW 22.6 H Plt Count 456 H D MPV 9.5 Absolute Neuts (auto) Neutrophils % Lymphocytes % Monocytes % Eosinophils % Basophils % Nucleated RBC % Platelet Estimate Platelet Comment PT with INR 22.00 H INR 1.85 H PTT (Actin FS) Fibrinogen Anticoagulation Therapy No Result Required. Puncture Site No Result Required. ABG pH 7.30 L ABG pCO2 at Pt Temp 38.8 ABG pO2 at Pt Temp 83.4 ABG HCO3 18.6 L ABG O2 Sat (Measured) 93.9 L ABG O2 Content 8.5 L* ABG Base Excess -6.7 L Tejas Test Positive Carboxyhemoglobin 1.1 Methemoglobin 0.5 O2 Delivery Device No Result Required. Oxygen Flow Rate No Result Required. Vent Mode No Result Required. Vent Rate No Result Required. Mechanical Rate No Result Required. Pressure Support Vent No Result Required. Sodium Potassium Chloride Carbon Dioxide Anion Gap BUN Creatinine Creat Clearance w eGFR POC Glucometer Random Glucose Lactic Acid Calcium Phosphorus Magnesium Total Bilirubin Direct Bilirubin AST ALT Alkaline Phosphatase Ammonia Creatine Kinase Creatine Kinase Index CK-MB (CK-2) Troponin I B-Natriuretic Peptide Total Protein Albumin Blood Type Antibody Screen Crossmatch 09/19/18 09/19/18 09/19/18 20:05 20:47 23:30 WBC Corrected WBC (auto) RBC Hgb Hct MCV MCH MCHC RDW Plt Count MPV Absolute Neuts (auto) Neutrophils % Lymphocytes % Monocytes % Eosinophils % Basophils % Nucleated RBC % Platelet Estimate Platelet Comment PT with INR INR PTT (Actin FS) Fibrinogen 223.0 L Anticoagulation Therapy Puncture Site ABG pH ABG pCO2 at Pt Temp ABG pO2 at Pt Temp ABG HCO3 ABG O2 Sat (Measured) ABG O2 Content ABG Base Excess Tejas Test Carboxyhemoglobin Methemoglobin O2 Delivery Device Oxygen Flow Rate Vent Mode Vent Rate Mechanical Rate Pressure Support Vent Sodium 136 133 L Potassium 5.5 H 6.1 H* Chloride 106 104 Carbon Dioxide 21 22 Anion Gap 9 7 L BUN 13 14 Creatinine 0.8 0.8 Creat Clearance w eGFR > 60 > 60 POC Glucometer Random Glucose 181 H 187 H Lactic Acid Calcium 6.9 L* 7.3 L Phosphorus Magnesium Total Bilirubin 3.5 H 4.6 H Direct Bilirubin AST 164 H 215 H ALT 27 35 Alkaline Phosphatase 180 H 189 H Ammonia Creatine Kinase Creatine Kinase Index CK-MB (CK-2) Troponin I B-Natriuretic Peptide Total Protein 5.1 L 5.5 L Albumin 1.2 L 1.3 L Blood Type Antibody Screen Crossmatch 09/19/18 09/19/18 09/19/18 23:59 23:59 23:59 WBC 17.1 H Corrected WBC (auto) RBC 3.40 L Hgb 9.2 L Hct 27.3 L MCV 80.4 MCH 27.0 MCHC 33.6 RDW 20.8 H Plt Count 488 H MPV 9.8 Absolute Neuts (auto) Neutrophils % Lymphocytes % Monocytes % Eosinophils % Basophils % Nucleated RBC % Platelet Estimate Platelet Comment PT with INR 19.70 H INR 1.66 H PTT (Actin FS) 35.4 Fibrinogen Anticoagulation Therapy Puncture Site ABG pH ABG pCO2 at Pt Temp ABG pO2 at Pt Temp ABG HCO3 ABG O2 Sat (Measured) ABG O2 Content ABG Base Excess Tejas Test Carboxyhemoglobin Methemoglobin O2 Delivery Device Oxygen Flow Rate Vent Mode Vent Rate Mechanical Rate Pressure Support Vent Sodium 133 L Potassium 6.2 H* Chloride 104 Carbon Dioxide 23 Anion Gap 6 L BUN 16 Creatinine 0.7 Creat Clearance w eGFR > 60 POC Glucometer Random Glucose 188 H Lactic Acid Calcium 7.3 L Phosphorus 4.7 Magnesium 2.0 Total Bilirubin 7.8 H Direct Bilirubin AST 233 H ALT 42 Alkaline Phosphatase 164 H Ammonia Creatine Kinase Creatine Kinase Index CK-MB (CK-2) Troponin I B-Natriuretic Peptide Total Protein 5.3 L Albumin 1.6 L Blood Type Antibody Screen Crossmatch 09/20/18 09/20/18 09/20/18 00:15 01:15 05:30 WBC Corrected WBC (auto) RBC Hgb Hct MCV MCH MCHC RDW Plt Count MPV Absolute Neuts (auto) Neutrophils % Lymphocytes % Monocytes % Eosinophils % Basophils % Nucleated RBC % Platelet Estimate Platelet Comment PT with INR INR PTT (Actin FS) Fibrinogen Anticoagulation Therapy Puncture Site ABG pH ABG pCO2 at Pt Temp ABG pO2 at Pt Temp ABG HCO3 ABG O2 Sat (Measured) ABG O2 Content ABG Base Excess Tejas Test Carboxyhemoglobin Methemoglobin O2 Delivery Device Oxygen Flow Rate Vent Mode Vent Rate Mechanical Rate Pressure Support Vent Sodium 132 L Potassium 6.3 H* Chloride 103 Carbon Dioxide 23 Anion Gap 6 L BUN 17 Creatinine 0.8 Creat Clearance w eGFR > 60 POC Glucometer Random Glucose 263 H Lactic Acid 3.9 H* Calcium 7.3 L Phosphorus Magnesium Total Bilirubin Direct Bilirubin AST ALT Alkaline Phosphatase Ammonia 372.50 H Creatine Kinase 55 Creatine Kinase Index CK-MB (CK-2) Troponin I < 0.02 B-Natriuretic Peptide Total Protein Albumin Blood Type Antibody Screen Crossmatch 09/20/18 09/20/18 09/20/18 05:30 05:30 05:30 WBC 17.1 H Corrected WBC (auto) RBC 3.89 L Hgb 10.6 L Hct 31.8 L D MCV 81.8 MCH 27.1 MCHC 33.2 RDW 19.3 H Plt Count 406 MPV 9.6 Absolute Neuts (auto) 13.2 H Neutrophils % 77.4 D Lymphocytes % 11.6 D Monocytes % 10.7 H Eosinophils % 0.0 D Basophils % 0.3 Nucleated RBC % 0 Platelet Estimate Platelet Comment PT with INR 19.40 H INR 1.64 H PTT (Actin FS) 36.2 Fibrinogen Anticoagulation Therapy Puncture Site ABG pH ABG pCO2 at Pt Temp ABG pO2 at Pt Temp ABG HCO3 ABG O2 Sat (Measured) ABG O2 Content ABG Base Excess Tejas Test Carboxyhemoglobin Methemoglobin O2 Delivery Device Oxygen Flow Rate Vent Mode Vent Rate Mechanical Rate Pressure Support Vent Sodium 132 L Potassium 5.6 H Chloride 102 Carbon Dioxide 23 Anion Gap 6 L BUN 20 H Creatinine 0.8 Creat Clearance w eGFR > 60 POC Glucometer Random Glucose 245 H Lactic Acid Calcium 7.5 L Phosphorus Magnesium 2.2 Total Bilirubin 13.0 H Direct Bilirubin 8.7 H AST 461 H ALT 73 H Alkaline Phosphatase 155 H Ammonia Creatine Kinase 62 Creatine Kinase Index CK-MB (CK-2) Troponin I < 0.02 B-Natriuretic Peptide 107.9 Total Protein 5.5 L Albumin 1.6 L Blood Type Antibody Screen Crossmatch 09/20/18 09/20/18 05:41 07:00 WBC Corrected WBC (auto) RBC Hgb Hct MCV MCH MCHC RDW Plt Count MPV Absolute Neuts (auto) Neutrophils % Lymphocytes % Monocytes % Eosinophils % Basophils % Nucleated RBC % Platelet Estimate Platelet Comment PT with INR INR PTT (Actin FS) Fibrinogen Anticoagulation Therapy Puncture Site ABG pH ABG pCO2 at Pt Temp ABG pO2 at Pt Temp ABG HCO3 ABG O2 Sat (Measured) ABG O2 Content ABG Base Excess Tejas Test Carboxyhemoglobin Methemoglobin O2 Delivery Device Oxygen Flow Rate Vent Mode Vent Rate Mechanical Rate Pressure Support Vent Sodium Potassium Chloride Carbon Dioxide Anion Gap BUN Creatinine Creat Clearance w eGFR POC Glucometer 253 Random Glucose Lactic Acid 3.5 H* Calcium Phosphorus Magnesium Total Bilirubin Direct Bilirubin AST ALT Alkaline Phosphatase Ammonia Creatine Kinase Creatine Kinase Index CK-MB (CK-2) Troponin I B-Natriuretic Peptide Total Protein Albumin Blood Type Antibody Screen Crossmatch Active Medications Generic Name Dose Route Start Last Admin Trade Name Freq PRN Reason Stop Dose Admin Chlorhexidine Gluconate 1 applic 09/20/18 22:00 Hibiclens For Decolonization - TP HS ALYSA Octreotide Acetate 1,200 mcg/ 500 mls @ 20.83 mls/hr 09/19/18 19:00 09/19/18 21:00 Dextrose IVPB 20.83 mls/hr ASDIR ALYSA Administration 50 MCG/HR Fentanyl 500 mcg/ Dextrose 100 mls @ 0 mls/hr 09/19/18 19:30 09/20/18 10:39 IVPB 75 mcg/hr TITR ALYSA 15 mls/hr Administration Protocol 0 MCG/HR Pantoprazole Sodium 80 mg/ 100 mls @ 10 mls/hr 09/19/18 23:30 09/20/18 00:04 Sodium Chloride IVPB 10 mls/hr Q10H ALYSA Administration 8 MG/HR Ceftriaxone Sodium 1 gm/ 50 mls @ 100 mls/hr 09/20/18 10:00 09/20/18 09:39 Dextrose IVPB 100 mls/hr DAILY ALYSA Administration Protocol Sodium Chloride 1,000 mls @ 75 mls/hr 09/20/18 01:00 09/20/18 01:29 Normal Saline - IV 75 mls/hr ASDIR ALYSA Administration Insulin Aspart 1 vial 09/20/18 07:00 09/20/18 06:11 Novolog Vial Sliding Scale - SQ 6 units ACHS ALYSA Administration Protocol Midazolam HCl 2 mg 09/20/18 06:32 09/20/18 06:44 Versed - IVPUSH 2 mg Q4H PRN Administration AGITATION Mupirocin 1 applic 09/20/18 10:00 09/20/18 09:40 Bactroban Ointment (For Decolonization) - NS 03/19/19 09:59 1 applic BID ALYSA Administration ASSESSMENT/PLAN: 58 y/o M w/ PMHx 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 2/2 hepatitis C, esophageal varices, portal vein thrombosis, DM, p/w massive UGIB, intubated and sedated and admitted to ICU #GI -emergent EGD failed to visualize source of bleeding -blood products and fluid resuscitation -PTX and octreotide gtt -imaging as per GI/ICU -transfer to tertiary center when sufficiently stable #heme -s/p 2U FFP, 5U PRBC #pulm -intubated, sedated on fentanyl and midazolam gtt #CV -femoral line in place, no pressors as yet -hemodynamically stable #FEN -NS 75 -monitor and correct electrolytes -NPO #PPx -DVT: mechanical AC only -GI: PTX gtt #code -full #dispo -cont to monitor in ICU -transfer to tertiary center as per GI/ICU when sufficiently stabilized Visit type - Emergency Visit Emergency Visit: Yes ED Registration Date: 09/19/18 Care time: The patient presented to the Emergency Department on the above date and was hospitalized for further evaluation of their emergent condition. - New Patient This patient is new to me today: Yes Date on this admission: 09/20/18 - Critical Care Critical Care patient: Yes Total Critical Care Time (in minutes): 40 Critical Care Statement: The care of this patient involved high complexity decision making to prevent further life threatening deterioration of the patient 's condition and/or to evaluate & treat vital organ system(s) failure or risk of failure.
--- NOTE | 2018-09-20 13:23 | PN ---
Physical Exam: SUBJECTIVE: 58 year old male with PMH HCV, HCC, ascites, portal vein hypertension, DM presented to ED 09/19/18 with massive upper GIB, was intubated in the ED, and Emergent EGD was performed, the source of bleeding was not able to be found. Pt proceeded to ICU. Pt received 5 units of PRBC and 2 units of FFP. Pt has been hemodynamically stable over night. No episodes of bleeding. I saw and examined the patient. Pt was intubated and sedated, unable to answer any questions. Healthcare proxy: Tristan Evans [phone]; nephew OBJECTIVE: Vital Signs Period Temp Pulse Resp BP Sys/Louis Pulse Ox Last 24 Hr 97.6 F-99.3 F 85-115 12-26 79-142/51-89 95-100 GENERAL: The patient is sedated and intubated. HEAD: Normal with no signs of trauma. EYES: PERRL, sclera anicteric, scleral icterus. ENT: Nares patent, moist mucous membranes. NECK: Trachea midline, full range of motion, supple. LUNGS: Breath sounds equal, clear to auscultation bilaterally, no wheezes, no crackles, no accessory muscle use. HEART: Regular rate and rhythm, S1, S2 without murmur, rub or gallop. ABDOMEN: severely distended abdomen, tympanic, fluid wave, no bowel sounds. EXTREMITIES: 2+ pulses, warm, well-perfused, no edema. NEUROLOGICAL: intubated and sedated. PSYCH: intubated and sedated. SKIN: Warm, dry, normal turgor, no rashes or lesions noted. Laboratory Results - last 24 hr 09/19/18 09/19/18 09/19/18 19:03 19:03 19:03 WBC Cancelled Corrected WBC (auto) Cancelled RBC Cancelled Hgb Cancelled Hct Cancelled MCV Cancelled MCH Cancelled MCHC Cancelled RDW Cancelled Plt Count Cancelled MPV Cancelled Absolute Neuts (auto) Cancelled Neutrophils % Cancelled Lymphocytes % Cancelled Monocytes % Cancelled Eosinophils % Cancelled Basophils % Cancelled Nucleated RBC % Cancelled Platelet Estimate Cancelled Platelet Comment Cancelled PT with INR Cancelled INR Cancelled PTT (Actin FS) Fibrinogen Anticoagulation Therapy Puncture Site ABG pH ABG pCO2 at Pt Temp ABG pO2 at Pt Temp ABG HCO3 ABG O2 Sat (Measured) ABG O2 Content ABG Base Excess Tejas Test Carboxyhemoglobin Methemoglobin O2 Delivery Device Oxygen Flow Rate Vent Mode Vent Rate Mechanical Rate Pressure Support Vent Sodium 131 L Potassium 6.0 H Chloride 102 Carbon Dioxide 22 Anion Gap 7 L BUN 14 Creatinine 0.7 Creat Clearance w eGFR > 60 POC Glucometer Random Glucose 195 H Lactic Acid Calcium 7.4 L Phosphorus Magnesium Total Bilirubin 4.0 H Direct Bilirubin AST 229 H ALT 105 H Alkaline Phosphatase 202 H Ammonia Creatine Kinase 159 Creatine Kinase Index 0.6 CK-MB (CK-2) < 1.0 Troponin I < 0.02 B-Natriuretic Peptide Total Protein 6.0 L Albumin 1.3 L Blood Type Antibody Screen Crossmatch 09/19/18 09/19/18 09/19/18 19:03 19:39 19:39 WBC Cancelled Corrected WBC (auto) Cancelled RBC Cancelled Hgb Cancelled Hct Cancelled MCV Cancelled MCH Cancelled MCHC Cancelled RDW Cancelled Plt Count Cancelled MPV Cancelled Absolute Neuts (auto) Cancelled Neutrophils % Cancelled Lymphocytes % Cancelled Monocytes % Cancelled Eosinophils % Cancelled Basophils % Cancelled Nucleated RBC % Cancelled Platelet Estimate Cancelled Platelet Comment Cancelled PT with INR 21.30 H INR 1.79 H PTT (Actin FS) Fibrinogen Anticoagulation Therapy Puncture Site ABG pH ABG pCO2 at Pt Temp ABG pO2 at Pt Temp ABG HCO3 ABG O2 Sat (Measured) ABG O2 Content ABG Base Excess Tejas Test Carboxyhemoglobin Methemoglobin O2 Delivery Device Oxygen Flow Rate Vent Mode Vent Rate Mechanical Rate Pressure Support Vent Sodium Potassium Chloride Carbon Dioxide Anion Gap BUN Creatinine Creat Clearance w eGFR POC Glucometer Random Glucose Lactic Acid Calcium Phosphorus Magnesium Total Bilirubin Direct Bilirubin AST ALT Alkaline Phosphatase Ammonia Creatine Kinase Creatine Kinase Index CK-MB (CK-2) Troponin I B-Natriuretic Peptide Total Protein Albumin Blood Type A NEGATIVE Antibody Screen Negative Crossmatch See Detail 09/19/18 09/19/18 09/19/18 19:39 19:39 19:39 WBC Corrected WBC (auto) RBC Hgb Hct MCV MCH MCHC RDW Plt Count MPV Absolute Neuts (auto) Neutrophils % Lymphocytes % Monocytes % Eosinophils % Basophils % Nucleated RBC % Platelet Estimate Platelet Comment PT with INR INR PTT (Actin FS) 29.2 Fibrinogen Anticoagulation Therapy Puncture Site ABG pH ABG pCO2 at Pt Temp ABG pO2 at Pt Temp ABG HCO3 ABG O2 Sat (Measured) ABG O2 Content ABG Base Excess Tejas Test Carboxyhemoglobin Methemoglobin O2 Delivery Device Oxygen Flow Rate Vent Mode Vent Rate Mechanical Rate Pressure Support Vent Sodium Cancelled Potassium Cancelled Chloride Cancelled Carbon Dioxide Cancelled Anion Gap Cancelled BUN Cancelled Creatinine Cancelled Creat Clearance w eGFR Cancelled POC Glucometer Random Glucose Cancelled Lactic Acid Calcium Cancelled Phosphorus Magnesium Total Bilirubin Cancelled Direct Bilirubin AST Cancelled ALT Cancelled Alkaline Phosphatase Cancelled Ammonia Creatine Kinase Creatine Kinase Index CK-MB (CK-2) Troponin I B-Natriuretic Peptide Total Protein Cancelled Albumin Cancelled Blood Type A NEGATIVE Antibody Screen Negative Crossmatch See Detail 09/19/18 09/19/18 09/19/18 19:43 20:05 20:05 WBC 14.5 H Corrected WBC (auto) RBC 3.36 L Hgb 8.6 L Hct 26.9 L D MCV 80.1 MCH 25.7 D MCHC 32.1 RDW 22.6 H Plt Count 456 H D MPV 9.5 Absolute Neuts (auto) Neutrophils % Lymphocytes % Monocytes % Eosinophils % Basophils % Nucleated RBC % Platelet Estimate Platelet Comment PT with INR 22.00 H INR 1.85 H PTT (Actin FS) Fibrinogen Anticoagulation Therapy No Result Required. Puncture Site No Result Required. ABG pH 7.30 L ABG pCO2 at Pt Temp 38.8 ABG pO2 at Pt Temp 83.4 ABG HCO3 18.6 L ABG O2 Sat (Measured) 93.9 L ABG O2 Content 8.5 L* ABG Base Excess -6.7 L Tejas Test Positive Carboxyhemoglobin 1.1 Methemoglobin 0.5 O2 Delivery Device No Result Required. Oxygen Flow Rate No Result Required. Vent Mode No Result Required. Vent Rate No Result Required. Mechanical Rate No Result Required. Pressure Support Vent No Result Required. Sodium Potassium Chloride Carbon Dioxide Anion Gap BUN Creatinine Creat Clearance w eGFR POC Glucometer Random Glucose Lactic Acid Calcium Phosphorus Magnesium Total Bilirubin Direct Bilirubin AST ALT Alkaline Phosphatase Ammonia Creatine Kinase Creatine Kinase Index CK-MB (CK-2) Troponin I B-Natriuretic Peptide Total Protein Albumin Blood Type Antibody Screen Crossmatch 09/19/18 09/19/18 09/19/18 20:05 20:47 23:30 WBC Corrected WBC (auto) RBC Hgb Hct MCV MCH MCHC RDW Plt Count MPV Absolute Neuts (auto) Neutrophils % Lymphocytes % Monocytes % Eosinophils % Basophils % Nucleated RBC % Platelet Estimate Platelet Comment PT with INR INR PTT (Actin FS) Fibrinogen 223.0 L Anticoagulation Therapy Puncture Site ABG pH ABG pCO2 at Pt Temp ABG pO2 at Pt Temp ABG HCO3 ABG O2 Sat (Measured) ABG O2 Content ABG Base Excess Tejas Test Carboxyhemoglobin Methemoglobin O2 Delivery Device Oxygen Flow Rate Vent Mode Vent Rate Mechanical Rate Pressure Support Vent Sodium 136 133 L Potassium 5.5 H 6.1 H* Chloride 106 104 Carbon Dioxide 21 22 Anion Gap 9 7 L BUN 13 14 Creatinine 0.8 0.8 Creat Clearance w eGFR > 60 > 60 POC Glucometer Random Glucose 181 H 187 H Lactic Acid Calcium 6.9 L* 7.3 L Phosphorus Magnesium Total Bilirubin 3.5 H 4.6 H Direct Bilirubin AST 164 H 215 H ALT 27 35 Alkaline Phosphatase 180 H 189 H Ammonia Creatine Kinase Creatine Kinase Index CK-MB (CK-2) Troponin I B-Natriuretic Peptide Total Protein 5.1 L 5.5 L Albumin 1.2 L 1.3 L Blood Type Antibody Screen Crossmatch 09/19/18 09/19/18 09/19/18 23:59 23:59 23:59 WBC 17.1 H Corrected WBC (auto) RBC 3.40 L Hgb 9.2 L Hct 27.3 L MCV 80.4 MCH 27.0 MCHC 33.6 RDW 20.8 H Plt Count 488 H MPV 9.8 Absolute Neuts (auto) Neutrophils % Lymphocytes % Monocytes % Eosinophils % Basophils % Nucleated RBC % Platelet Estimate Platelet Comment PT with INR 19.70 H INR 1.66 H PTT (Actin FS) 35.4 Fibrinogen Anticoagulation Therapy Puncture Site ABG pH ABG pCO2 at Pt Temp ABG pO2 at Pt Temp ABG HCO3 ABG O2 Sat (Measured) ABG O2 Content ABG Base Excess Tejas Test Carboxyhemoglobin Methemoglobin O2 Delivery Device Oxygen Flow Rate Vent Mode Vent Rate Mechanical Rate Pressure Support Vent Sodium 133 L Potassium 6.2 H* Chloride 104 Carbon Dioxide 23 Anion Gap 6 L BUN 16 Creatinine 0.7 Creat Clearance w eGFR > 60 POC Glucometer Random Glucose 188 H Lactic Acid Calcium 7.3 L Phosphorus 4.7 Magnesium 2.0 Total Bilirubin 7.8 H Direct Bilirubin AST 233 H ALT 42 Alkaline Phosphatase 164 H Ammonia Creatine Kinase Creatine Kinase Index CK-MB (CK-2) Troponin I B-Natriuretic Peptide Total Protein 5.3 L Albumin 1.6 L Blood Type Antibody Screen Crossmatch 09/20/18 09/20/18 09/20/18 00:15 01:15 05:30 WBC Corrected WBC (auto) RBC Hgb Hct MCV MCH MCHC RDW Plt Count MPV Absolute Neuts (auto) Neutrophils % Lymphocytes % Monocytes % Eosinophils % Basophils % Nucleated RBC % Platelet Estimate Platelet Comment PT with INR INR PTT (Actin FS) Fibrinogen Anticoagulation Therapy Puncture Site ABG pH ABG pCO2 at Pt Temp ABG pO2 at Pt Temp ABG HCO3 ABG O2 Sat (Measured) ABG O2 Content ABG Base Excess Tejas Test Carboxyhemoglobin Methemoglobin O2 Delivery Device Oxygen Flow Rate Vent Mode Vent Rate Mechanical Rate Pressure Support Vent Sodium 132 L Potassium 6.3 H* Chloride 103 Carbon Dioxide 23 Anion Gap 6 L BUN 17 Creatinine 0.8 Creat Clearance w eGFR > 60 POC Glucometer Random Glucose 263 H Lactic Acid 3.9 H* Calcium 7.3 L Phosphorus Magnesium Total Bilirubin Direct Bilirubin AST ALT Alkaline Phosphatase Ammonia 372.50 H Creatine Kinase 55 Creatine Kinase Index CK-MB (CK-2) Troponin I < 0.02 B-Natriuretic Peptide Total Protein Albumin Blood Type Antibody Screen Crossmatch 09/20/18 09/20/18 09/20/18 05:30 05:30 05:30 WBC 17.1 H Corrected WBC (auto) RBC 3.89 L Hgb 10.6 L Hct 31.8 L D MCV 81.8 MCH 27.1 MCHC 33.2 RDW 19.3 H Plt Count 406 MPV 9.6 Absolute Neuts (auto) 13.2 H Neutrophils % 77.4 D Lymphocytes % 11.6 D Monocytes % 10.7 H Eosinophils % 0.0 D Basophils % 0.3 Nucleated RBC % 0 Platelet Estimate Platelet Comment PT with INR 19.40 H INR 1.64 H PTT (Actin FS) 36.2 Fibrinogen Anticoagulation Therapy Puncture Site ABG pH ABG pCO2 at Pt Temp ABG pO2 at Pt Temp ABG HCO3 ABG O2 Sat (Measured) ABG O2 Content ABG Base Excess Tejas Test Carboxyhemoglobin Methemoglobin O2 Delivery Device Oxygen Flow Rate Vent Mode Vent Rate Mechanical Rate Pressure Support Vent Sodium 132 L Potassium 5.6 H Chloride 102 Carbon Dioxide 23 Anion Gap 6 L BUN 20 H Creatinine 0.8 Creat Clearance w eGFR > 60 POC Glucometer Random Glucose 245 H Lactic Acid Calcium 7.5 L Phosphorus Magnesium 2.2 Total Bilirubin 13.0 H Direct Bilirubin 8.7 H AST 461 H ALT 73 H Alkaline Phosphatase 155 H Ammonia Creatine Kinase 62 Creatine Kinase Index CK-MB (CK-2) Troponin I < 0.02 B-Natriuretic Peptide 107.9 Total Protein 5.5 L Albumin 1.6 L Blood Type Antibody Screen Crossmatch 09/20/18 09/20/18 09/20/18 05:41 07:00 13:06 WBC Corrected WBC (auto) RBC Hgb Hct MCV MCH MCHC RDW Plt Count MPV Absolute Neuts (auto) Neutrophils % Lymphocytes % Monocytes % Eosinophils % Basophils % Nucleated RBC % Platelet Estimate Platelet Comment PT with INR INR PTT (Actin FS) Fibrinogen Anticoagulation Therapy Puncture Site ABG pH ABG pCO2 at Pt Temp ABG pO2 at Pt Temp ABG HCO3 ABG O2 Sat (Measured) ABG O2 Content ABG Base Excess Tejas Test Carboxyhemoglobin Methemoglobin O2 Delivery Device Oxygen Flow Rate Vent Mode Vent Rate Mechanical Rate Pressure Support Vent Sodium Potassium Chloride Carbon Dioxide Anion Gap BUN Creatinine Creat Clearance w eGFR POC Glucometer 253 119 Random Glucose Lactic Acid 3.5 H* Calcium Phosphorus Magnesium Total Bilirubin Direct Bilirubin AST ALT Alkaline Phosphatase Ammonia Creatine Kinase Creatine Kinase Index CK-MB (CK-2) Troponin I B-Natriuretic Peptide Total Protein Albumin Blood Type Antibody Screen Crossmatch Active Medications Generic Name Dose Route Start Last Admin Trade Name Freq PRN Reason Stop Dose Admin Chlorhexidine Gluconate 1 applic 09/20/18 22:00 Hibiclens For Decolonization - TP HS ALYSA Octreotide Acetate 1,200 mcg/ 500 mls @ 20.83 mls/hr 09/19/18 19:00 09/19/18 21:00 Dextrose IVPB 20.83 mls/hr ASDIR ALYSA Administration 50 MCG/HR Fentanyl 500 mcg/ Dextrose 100 mls @ 0 mls/hr 09/19/18 19:30 09/20/18 10:39 IVPB 75 mcg/hr TITR ALYSA 15 mls/hr Administration Protocol 0 MCG/HR Pantoprazole Sodium 80 mg/ 100 mls @ 10 mls/hr 09/19/18 23:30 09/20/18 00:04 Sodium Chloride IVPB 10 mls/hr Q10H ALYSA Administration 8 MG/HR Ceftriaxone Sodium 1 gm/ 50 mls @ 100 mls/hr 09/20/18 10:00 09/20/18 09:39 Dextrose IVPB 100 mls/hr DAILY ALYSA Administration Protocol Sodium Chloride 1,000 mls @ 75 mls/hr 09/20/18 01:00 09/20/18 01:29 Normal Saline - IV 75 mls/hr ASDIR ALYSA Administration Insulin Aspart 1 vial 09/20/18 07:00 09/20/18 06:11 Novolog Vial Sliding Scale - SQ 6 units ACHS ALYSA Administration Protocol Midazolam HCl 2 mg 09/20/18 06:32 09/20/18 06:44 Versed - IVPUSH 2 mg Q4H PRN Administration AGITATION Mupirocin 1 applic 09/20/18 10:00 09/20/18 09:40 Bactroban Ointment (For Decolonization) - NS 09/25/18 09:59 1 applic BID ALYSA Administration IMAGIN) CT abdomen/pelvis 09/20/18: distal esophagus dilated with fluid. large volume ascites present. mild thickening of colonic wall with no pneumatosis. findings may represent colitis, changes secondary to portal hypertension may have a similar picture. no free air is seen. stomach is distended with food stuff and air. NG tube decompression may be of benefit. demineralization of small bowel content is noted. max small bowel dilation measures up to 3.5 cm. distal small bowel compressed. transition point appears to be within the right abdomen. no clear cut transition is noted, which could be secondary to an ileus. 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 ileus vs SBO. -GI recs no NG or rectal tube secondary to bleeding varices; health care proxy stated he did not want NG tube -Healthcare proxy declined Toni tube at this time -Healthcare proxy to return to ICU to continue discussing overall plan for care #HCC/HCV -Transaminitis -Hyperbilirubinemia -Malignant liver lesions on CT HEME -s/p 2U FFP, 5U PRBC PULMONOLOGY -intubated on AC -sedated on fentanyl and midazolam gtt FEN -NS 75 cc/hour #HYPERKALEMIA -1 amp D50 and 10 units of insulin ordered -NPO -Kurtz placed 09/19/18 PPX -DVT: mechanical AC only -GI: PTX gtt CODE -full DISPO -MICU Visit type - Emergency Visit Emergency Visit: Yes ED Registration Date: 09/19/18 Care time: The patient presented to the Emergency Department on the above date and was hospitalized for further evaluation of their emergent condition. - New Patient This patient is new to me today: Yes Date on this admission: 09/21/18 - Critical Care Critical Care patient: Yes Total Critical Care Time (in minutes): 35 Critical Care Statement: The care of this patient involved high complexity decision making to prevent further life threatening deterioration of the patient 's condition and/or to evaluate & treat vital organ system(s) failure or risk of failure. - Discharge Referral Referred to [facility] No
--- NOTE | 2018-09-20 15:00 | PN ---
Progress Note (short form) - Note Progress Note: Had discussion with Lydia Granado, the tape calender on liver service currently at [facility]. She ggave me information regarding Mr. Waldron's course at [facility]. Patient has HCV cirrhosis, HCC with extensive involvement of the portal vein and abdominal lymphadenomathy as well. Was deemed not a transplant candidate at [facility]. He has a history of esophageal varices with multiple admissions for bleeding. She believed that the last EGD in the system was 07/06 that revealed grade III esophageal varices and portal gastropathy. Banding was performed. Prior to taht he was having serially He declined local regional treatment for the HCC and was placed on nivolumab. 08/28/18 there was an admission note that described plan for Hospice as he wanted to return to [facility]. I had a long discussion with Mr. Cheng's contact / nephew felicia and expplained the gravity of the situation. I explained that it is possible his uncle may have continued bleeding. I explained that I spoke to the liver physician at [facility]. I explained that Mr. Cheng's overall prognosis is very poor and that his acute bleeding has likely contributed to further decompensation. We discussed options. 1. Heading towards comfort measures, 2. continued interventions with risk of potential worsening of his overall condition through these interventions (sabrina tube placement, attempt at repeat upper endoscopy when stable enough). I also explained that NGT could be placed to help decompress his stomach and small bowel. He asked if there was concern regarding placement of the NG tube. I explained that theoretically a tube in the esoophagus could precipitate bleeding (however there was no supporting data to give percentages regarding this). He asked that NG tube be held off at this time and that we observe. he was heading to the hospital to speak with his father, Ms. Waldron's brother and to see his uncle. I explained that we can continue the conversation regarding interventions when he arrives. Overall poor prognosis Continuing supportive measures Ordered repeat CBC for this afternoon Problem List - Problems (1) UGIB (upper gastrointestinal bleed) Code(s): K92.2 - GASTROINTESTINAL HEMORRHAGE, UNSPECIFIED
[2018-09-20 15:39] LABS: BASO % 0.2 % (0-2.0); HEMATOCRIT 33.2 % (35.4-49); HEMOGLOBIN 10.9 GM/dL (11.7-16.9); LYMPH % 3.8 % (8-40); MCH 26.8 pg (25.7-33.7); MCHC 32.9 g/dl (32.0-35.9); MEAN CELL VOLUME 81.6 fl (80-96); MEAN PLT VOLUME 10.1 fl (7.5-11.1); MONO % 6.2 % (3.8-10.2); NEUT % 89.8 % (42.8-82.8); PLATELET COUNT 574 K/MM3 (134-434); RBC 4.07 M/mm3 (4.00-5.60); RDW 19.1 % (11.9-15.9)
[2018-09-20 15:42] LABS: WHITE BLOOD COUNT 38.3 K/mm3 (4.0-10.0)
[2018-09-20 15:50] LABS: INR 1.78 (0.83-1.09); PROTHROMBIN TIME (PATIENT) 21.1 SEC (9.7-13.0)
[2018-09-20 15:52] LABS: ACTIVATED PTT 36.8 SECONDS (25.2-36.5)
[2018-09-20 16:27] LABS: ALBUMIN 1.5 g/dl (3.4-5.0); ALK PHOS 213 U/L (45-117); ANION GAP 8 MMOL/L (8-16); BILIRUBIN,TOTAL 10.3 mg/dL (0.2-1); BLOOD UREA NITROGEN 27 mg/dL (7-18); CALCIUM 7.9 mg/dL (8.5-10.1); CHLORIDE 104 mmol/L (98-107); CO2 21 mmol/L (21-32); CREATININE 1.3 mg/dL (0.55-1.3); GLUCOSE,RANDOM 63 mg/dL (74-106); MAGNESIUM 2.1 mg/dL (1.8-2.4); SGOT/AST 3668 U/L (15-37); SGPT/ALT 341 U/L (13-61); SODIUM 133 mmol/L (136-145); TOT PROT 5.6 g/dl (6.4-8.2)
[2018-09-20 16:43] LABS: POTASSIUM 6.3 mmol/L (3.5-5.1)
[2018-09-20] MEDS ORDERED: ALBUTEROL SO4 0.5 % INH SOLN 2.5 MG/0.5 ML VIAL.NEB. NEB ONE (18:16)
--- NOTE | 2018-09-20 19:04 | PN ---
Progress Note (short form) - Note Progress Note: Spoke with chest pain coordinator from [facility]. Explained that my concern was that I felt that the patient was still unstable for transfer and that transfer would be reassessed in AM. I spoke with his nephew regarding this. Mr. Waldron has now become more hypotensive and is being bolused. There has been no overt bleeding. WBC has risen to 39K and transaminases have risen as well. Explained to his nephew that he is critically ill and may tonight. He is still deferring NGT placement at this time. Broad spectrum Abx, Blood culture, ID consult. Discussed with primary team. Grave prognosis Problem List - Problems (1) UGIB (upper gastrointestinal bleed) Code(s): K92.2 - GASTROINTESTINAL HEMORRHAGE, UNSPECIFIED
[2018-09-20 19:37] LABS: ARTERIAL BLD GAS O2 SATURATION 87.7 % (95-98); ARTERIAL BLOOD GAS BASE EXCESS -10.8 meq/l (-2-2); ARTERIAL BLOOD GAS PCO2 32.7 mmHg (35-45); ARTERIAL BLOOD GAS PO2 63.7 mmHg (80-105); ARTERIAL BLOOD GAS pH 7.28 (7.35-7.45)
[2018-09-20 19:38] LABS: ALLENS TEST POSITIVE
--- NOTE | 2018-09-20 20:06 | PN ---
Teaching Attending Note Name of Resident: Adan Calix ATTENDING PHYSICIAN STATEMENT I saw and evaluated the patient. I reviewed the resident's note and discussed the case with the resident. I agree with the resident's findings and plan as documented. SUBJECTIVE: Intubated/Sedated. Unable to participate in medical interview OBJECTIVE: Afebrile, Borderline BP Last Vital Signs Temp Pulse Resp BP Pulse Ox 99.1 F 123 H 12 80/64 L 100 09/20/18 16:00 09/20/18 18:00 09/20/18 19:11 09/20/18 18:00 09/20/18 00:00 HEENT - Atraumatic, Normocephalic Heart - S1, S2, RRR Lungs - Intubated, mechanically ventilated. Good air entry bilaterally. Abdomen - Distended - tense Extremities - mild edema. No calf swelling. Neuro - Sedated. Laboratory Results - last 24 hr 09/19/18 09/19/18 09/19/18 19:03 19:03 19:39 WBC RBC Hgb Hct MCV MCH MCHC RDW Plt Count MPV Absolute Neuts (auto) Neutrophils % Lymphocytes % Monocytes % Eosinophils % Basophils % Nucleated RBC % PT with INR 21.30 H INR 1.79 H PTT (Actin FS) Fibrinogen Anticoagulation Therapy Puncture Site ABG pH ABG pCO2 at Pt Temp ABG pO2 at Pt Temp ABG HCO3 ABG O2 Sat (Measured) ABG O2 Content ABG Base Excess Tejas Test O2 Delivery Device Oxygen Flow Rate Vent Mode Vent Rate Mechanical Rate PEEP Pressure Support Vent Sodium 131 L Potassium 6.0 H Chloride 102 Carbon Dioxide 22 Anion Gap 7 L BUN 14 Creatinine 0.7 Creat Clearance w eGFR > 60 POC Glucometer Random Glucose 195 H Lactic Acid Calcium 7.4 L Phosphorus Magnesium Total Bilirubin 4.0 H Direct Bilirubin AST 229 H ALT 105 H Alkaline Phosphatase 202 H Ammonia Creatine Kinase 159 Creatine Kinase Index 0.6 CK-MB (CK-2) < 1.0 Troponin I < 0.02 B-Natriuretic Peptide Total Protein 6.0 L Albumin 1.3 L Blood Type A NEGATIVE Antibody Screen Negative Crossmatch See Detail 09/19/18 09/19/18 09/19/18 19:39 19:39 19:39 WBC RBC Hgb Hct MCV MCH MCHC RDW Plt Count MPV Absolute Neuts (auto) Neutrophils % Lymphocytes % Monocytes % Eosinophils % Basophils % Nucleated RBC % PT with INR INR PTT (Actin FS) 29.2 Fibrinogen Anticoagulation Therapy Puncture Site ABG pH ABG pCO2 at Pt Temp ABG pO2 at Pt Temp ABG HCO3 ABG O2 Sat (Measured) ABG O2 Content ABG Base Excess Tejas Test O2 Delivery Device Oxygen Flow Rate Vent Mode Vent Rate Mechanical Rate PEEP Pressure Support Vent Sodium Cancelled Potassium Cancelled Chloride Cancelled Carbon Dioxide Cancelled Anion Gap Cancelled BUN Cancelled Creatinine Cancelled Creat Clearance w eGFR Cancelled POC Glucometer Random Glucose Cancelled Lactic Acid Calcium Cancelled Phosphorus Magnesium Total Bilirubin Cancelled Direct Bilirubin AST Cancelled ALT Cancelled Alkaline Phosphatase Cancelled Ammonia Creatine Kinase Creatine Kinase Index CK-MB (CK-2) Troponin I B-Natriuretic Peptide Total Protein Cancelled Albumin Cancelled Blood Type A NEGATIVE Antibody Screen Negative Crossmatch See Detail 09/19/18 09/19/18 09/19/18 19:43 20:05 20:05 WBC 14.5 H RBC 3.36 L Hgb 8.6 L Hct 26.9 L D MCV 80.1 MCH 25.7 D MCHC 32.1 RDW 22.6 H Plt Count 456 H D MPV 9.5 Absolute Neuts (auto) Neutrophils % Lymphocytes % Monocytes % Eosinophils % Basophils % Nucleated RBC % PT with INR 22.00 H INR 1.85 H PTT (Actin FS) Fibrinogen Anticoagulation Therapy Puncture Site No Result Required. ABG pH ABG pCO2 at Pt Temp ABG pO2 at Pt Temp ABG HCO3 ABG O2 Sat (Measured) ABG O2 Content ABG Base Excess Tejas Test Positive O2 Delivery Device Oxygen Flow Rate No Result Required. Vent Mode Vent Rate Mechanical Rate PEEP Pressure Support Vent Sodium Potassium Chloride Carbon Dioxide Anion Gap BUN Creatinine Creat Clearance w eGFR POC Glucometer Random Glucose Lactic Acid Calcium Phosphorus Magnesium Total Bilirubin Direct Bilirubin AST ALT Alkaline Phosphatase Ammonia Creatine Kinase Creatine Kinase Index CK-MB (CK-2) Troponin I B-Natriuretic Peptide Total Protein Albumin Blood Type Antibody Screen Crossmatch 09/19/18 09/19/18 09/19/18 20:05 20:47 23:30 WBC RBC Hgb Hct MCV MCH MCHC RDW Plt Count MPV Absolute Neuts (auto) Neutrophils % Lymphocytes % Monocytes % Eosinophils % Basophils % Nucleated RBC % PT with INR INR PTT (Actin FS) Fibrinogen 223.0 L Anticoagulation Therapy Puncture Site ABG pH ABG pCO2 at Pt Temp ABG pO2 at Pt Temp ABG HCO3 ABG O2 Sat (Measured) ABG O2 Content ABG Base Excess Tejas Test O2 Delivery Device Oxygen Flow Rate Vent Mode Vent Rate Mechanical Rate PEEP Pressure Support Vent Sodium 136 133 L Potassium 5.5 H 6.1 H* Chloride 106 104 Carbon Dioxide 21 22 Anion Gap 9 7 L BUN 13 14 Creatinine 0.8 0.8 Creat Clearance w eGFR > 60 > 60 POC Glucometer Random Glucose 181 H 187 H Lactic Acid Calcium 6.9 L* 7.3 L Phosphorus Magnesium Total Bilirubin 3.5 H 4.6 H Direct Bilirubin AST 164 H 215 H ALT 27 35 Alkaline Phosphatase 180 H 189 H Ammonia Creatine Kinase Creatine Kinase Index CK-MB (CK-2) Troponin I B-Natriuretic Peptide Total Protein 5.1 L 5.5 L Albumin 1.2 L 1.3 L Blood Type Antibody Screen Crossmatch 09/19/18 09/19/18 09/19/18 23:59 23:59 23:59 WBC 17.1 H RBC 3.40 L Hgb 9.2 L Hct 27.3 L MCV 80.4 MCH 27.0 MCHC 33.6 RDW 20.8 H Plt Count 488 H MPV 9.8 Absolute Neuts (auto) Neutrophils % Lymphocytes % Monocytes % Eosinophils % Basophils % Nucleated RBC % PT with INR 19.70 H INR 1.66 H PTT (Actin FS) 35.4 Fibrinogen Anticoagulation Therapy Puncture Site ABG pH ABG pCO2 at Pt Temp ABG pO2 at Pt Temp ABG HCO3 ABG O2 Sat (Measured) ABG O2 Content ABG Base Excess Etjas Test O2 Delivery Device Oxygen Flow Rate Vent Mode Vent Rate Mechanical Rate PEEP Pressure Support Vent Sodium 133 L Potassium 6.2 H* Chloride 104 Carbon Dioxide 23 Anion Gap 6 L BUN 16 Creatinine 0.7 Creat Clearance w eGFR > 60 POC Glucometer Random Glucose 188 H Lactic Acid Calcium 7.3 L Phosphorus 4.7 Magnesium 2.0 Total Bilirubin 7.8 H Direct Bilirubin AST 233 H ALT 42 Alkaline Phosphatase 164 H Ammonia Creatine Kinase Creatine Kinase Index CK-MB (CK-2) Troponin I B-Natriuretic Peptide Total Protein 5.3 L Albumin 1.6 L Blood Type Antibody Screen Crossmatch 09/20/18 09/20/18 09/20/18 00:15 01:15 05:30 WBC RBC Hgb Hct MCV MCH MCHC RDW Plt Count MPV Absolute Neuts (auto) Neutrophils % Lymphocytes % Monocytes % Eosinophils % Basophils % Nucleated RBC % PT with INR INR PTT (Actin FS) Fibrinogen Anticoagulation Therapy Puncture Site ABG pH ABG pCO2 at Pt Temp ABG pO2 at Pt Temp ABG HCO3 ABG O2 Sat (Measured) ABG O2 Content ABG Base Excess Tejas Test O2 Delivery Device Oxygen Flow Rate Vent Mode Vent Rate Mechanical Rate PEEP Pressure Support Vent Sodium 132 L Potassium 6.3 H* Chloride 103 Carbon Dioxide 23 Anion Gap 6 L BUN 17 Creatinine 0.8 Creat Clearance w eGFR > 60 POC Glucometer Random Glucose 263 H Lactic Acid 3.9 H* Calcium 7.3 L Phosphorus Magnesium Total Bilirubin Direct Bilirubin AST ALT Alkaline Phosphatase Ammonia 372.50 H Creatine Kinase 55 Creatine Kinase Index CK-MB (CK-2) Troponin I < 0.02 B-Natriuretic Peptide Total Protein Albumin Blood Type Antibody Screen Crossmatch 09/20/18 09/20/18 09/20/18 05:30 05:30 05:30 WBC 17.1 H RBC 3.89 L Hgb 10.6 L Hct 31.8 L D MCV 81.8 MCH 27.1 MCHC 33.2 RDW 19.3 H Plt Count 406 MPV 9.6 Absolute Neuts (auto) 13.2 H Neutrophils % 77.4 D Lymphocytes % 11.6 D Monocytes % 10.7 H Eosinophils % 0.0 D Basophils % 0.3 Nucleated RBC % 0 PT with INR 19.40 H INR 1.64 H PTT (Actin FS) 36.2 Fibrinogen Anticoagulation Therapy Puncture Site ABG pH ABG pCO2 at Pt Temp ABG pO2 at Pt Temp ABG HCO3 ABG O2 Sat (Measured) ABG O2 Content ABG Base Excess Tejas Test O2 Delivery Device Oxygen Flow Rate Vent Mode Vent Rate Mechanical Rate PEEP Pressure Support Vent Sodium 132 L Potassium 5.6 H Chloride 102 Carbon Dioxide 23 Anion Gap 6 L BUN 20 H Creatinine 0.8 Creat Clearance w eGFR > 60 POC Glucometer Random Glucose 245 H Lactic Acid Calcium 7.5 L Phosphorus Magnesium 2.2 Total Bilirubin 13.0 H Direct Bilirubin 8.7 H AST 461 H ALT 73 H Alkaline Phosphatase 155 H Ammonia Creatine Kinase 62 Creatine Kinase Index CK-MB (CK-2) Troponin I < 0.02 B-Natriuretic Peptide 107.9 Total Protein 5.5 L Albumin 1.6 L Blood Type Antibody Screen Crossmatch 09/20/18 09/20/18 09/20/18 05:41 07:00 13:06 WBC RBC Hgb Hct MCV MCH MCHC RDW Plt Count MPV Absolute Neuts (auto) Neutrophils % Lymphocytes % Monocytes % Eosinophils % Basophils % Nucleated RBC % PT with INR INR PTT (Actin FS) Fibrinogen Anticoagulation Therapy Puncture Site ABG pH ABG pCO2 at Pt Temp ABG pO2 at Pt Temp ABG HCO3 ABG O2 Sat (Measured) ABG O2 Content ABG Base Excess Tejas Test O2 Delivery Device Oxygen Flow Rate Vent Mode Vent Rate Mechanical Rate PEEP Pressure Support Vent Sodium Potassium Chloride Carbon Dioxide Anion Gap BUN Creatinine Creat Clearance w eGFR POC Glucometer 253 119 Random Glucose Lactic Acid 3.5 H* Calcium Phosphorus Magnesium Total Bilirubin Direct Bilirubin AST ALT Alkaline Phosphatase Ammonia Creatine Kinase Creatine Kinase Index CK-MB (CK-2) Troponin I B-Natriuretic Peptide Total Protein Albumin Blood Type Antibody Screen Crossmatch 09/20/18 09/20/18 09/20/18 14:55 14:55 14:55 WBC 38.3 H* RBC 4.07 Hgb 10.9 L Hct 33.2 L MCV 81.6 MCH 26.8 MCHC 32.9 RDW 19.1 H Plt Count 574 H D MPV 10.1 Absolute Neuts (auto) 34.4 H Neutrophils % 89.8 H Lymphocytes % 3.8 L D Monocytes % 6.2 Eosinophils % 0.0 Basophils % 0.2 Nucleated RBC % 0 PT with INR 21.10 H INR 1.78 H PTT (Actin FS) 36.8 H Fibrinogen Anticoagulation Therapy Puncture Site ABG pH ABG pCO2 at Pt Temp ABG pO2 at Pt Temp ABG HCO3 ABG O2 Sat (Measured) ABG O2 Content ABG Base Excess Tejas Test O2 Delivery Device Oxygen Flow Rate Vent Mode Vent Rate Mechanical Rate PEEP Pressure Support Vent Sodium 133 L Potassium 6.3 H* Chloride 104 Carbon Dioxide 21 Anion Gap 8 BUN 27 H Creatinine 1.3 Creat Clearance w eGFR 57.10 POC Glucometer Random Glucose 63 L Lactic Acid Calcium 7.9 L Phosphorus 6.0 H Magnesium 2.1 Total Bilirubin 10.3 H Direct Bilirubin AST 3668 H ALT 341 H Alkaline Phosphatase 213 H Ammonia Creatine Kinase Creatine Kinase Index CK-MB (CK-2) Troponin I B-Natriuretic Peptide Total Protein 5.6 L Albumin 1.5 L Blood Type Antibody Screen Crossmatch 09/20/18 09/20/18 09/20/18 14:55 17:22 19:08 WBC RBC Hgb Hct MCV MCH MCHC RDW Plt Count MPV Absolute Neuts (auto) Neutrophils % Lymphocytes % Monocytes % Eosinophils % Basophils % Nucleated RBC % PT with INR INR PTT (Actin FS) Cancelled Fibrinogen Anticoagulation Therapy Puncture Site ABG pH ABG pCO2 at Pt Temp ABG pO2 at Pt Temp ABG HCO3 ABG O2 Sat (Measured) ABG O2 Content ABG Base Excess Tejas Test O2 Delivery Device Oxygen Flow Rate Vent Mode Vent Rate Mechanical Rate PEEP Pressure Support Vent Sodium Potassium Chloride Carbon Dioxide Anion Gap BUN Creatinine Creat Clearance w eGFR POC Glucometer 67 118 Random Glucose Lactic Acid Calcium Phosphorus Magnesium Total Bilirubin Direct Bilirubin AST ALT Alkaline Phosphatase Ammonia Creatine Kinase Creatine Kinase Index CK-MB (CK-2) Troponin I B-Natriuretic Peptide Total Protein Albumin Blood Type Antibody Screen Crossmatch 09/20/18 19:30 WBC RBC Hgb Hct MCV MCH MCHC RDW Plt Count MPV Absolute Neuts (auto) Neutrophils % Lymphocytes % Monocytes % Eosinophils % Basophils % Nucleated RBC % PT with INR INR PTT (Actin FS) Fibrinogen Anticoagulation Therapy No Result Required. Puncture Site Right radial ABG pH 7.28 L ABG pCO2 at Pt Temp 32.7 L ABG pO2 at Pt Temp 63.7 L ABG HCO3 14.7 L ABG O2 Sat (Measured) 87.7 L ABG O2 Content 10.8 L ABG Base Excess -10.8 L Tejas Test Positive O2 Delivery Device No Result Required. Oxygen Flow Rate 40% Vent Mode Ak Vent Rate No Result Required. Mechanical Rate Yes PEEP 5.0 Pressure Support Vent 400 Sodium Potassium Chloride Carbon Dioxide Anion Gap BUN Creatinine Creat Clearance w eGFR POC Glucometer Random Glucose Lactic Acid Calcium Phosphorus Magnesium Total Bilirubin Direct Bilirubin AST ALT Alkaline Phosphatase Ammonia Creatine Kinase Creatine Kinase Index CK-MB (CK-2) Troponin I B-Natriuretic Peptide Total Protein Albumin Blood Type Antibody Screen Crossmatch Current Medications Generic Name Dose Route Start Last Admin Trade Name Freq PRN Reason Stop Dose Admin Chlorhexidine Gluconate 1 applic 09/20/18 22:00 Hibiclens For Decolonization - TP HS ALYSA Octreotide Acetate 1,200 mcg/ 500 mls @ 20.83 mls/hr 09/19/18 19:00 09/19/18 21:00 Dextrose IVPB 20.83 mls/hr ASDIR ALYSA Administration 50 MCG/HR Fentanyl 500 mcg/ Dextrose 100 mls @ 0 mls/hr 09/19/18 19:30 09/20/18 17:50 IVPB 100 mcg/hr TITR ALYSA 20 mls/hr Administration Protocol 0 MCG/HR Pantoprazole Sodium 80 mg/ 100 mls @ 10 mls/hr 09/19/18 23:30 09/20/18 12:00 Sodium Chloride IVPB 10 mls/hr Q10H ALYSA Administration 8 MG/HR Ceftriaxone Sodium 1 gm/ 50 mls @ 100 mls/hr 09/20/18 10:00 09/20/18 09:39 Dextrose IVPB 100 mls/hr DAILY ALYSA Administration Protocol Sodium Chloride 1,000 mls @ 75 mls/hr 09/20/18 01:00 09/20/18 01:29 Normal Saline - IV 75 mls/hr ASDIR ALYSA Administration Insulin Aspart 1 vial 09/20/18 07:00 09/20/18 17:49 Novolog Vial Sliding Scale - SQ Not Given ACHS ALYSA Protocol Midazolam HCl 2 mg 09/20/18 06:32 09/20/18 16:30 Versed - IVPUSH 2 mg Q4H PRN Administration AGITATION Mupirocin 1 applic 09/20/18 10:00 09/20/18 09:40 Bactroban Ointment (For Decolonization) - NS 09/25/18 09:59 1 applic BID ALYSA Administration ASSESSMENT AND PLAN: 58 year old male with 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 Emergent EGD was performed but source of bleeding was not identified due to large amount of fresh blood from actively bleeding vessel. No intervention was performed. 1. Acute Blood Loss anemia and Hypotension secondary to Catastrophic Variceal Bleeding s/p EGD - unable to identify source or apply intervention s/p Intubation for airway protection H/H 10.6/31.8 s/p 5 units PRBCs Continue Protonix and Octreotide drips. Prophylactic Ceftriaxone. GI following - further recommendations for management/intervention as per GI. Discussed transfer to [facility] with ICU attending Dr. Guerrero at [facility], who will accept the patient once GI serviceat [facility] is in agreement. 2. Hyperkalemia - persistent s/p Insulin/Dextrose. Will monitor. 3. Portal Hypertension secondary to Liver Cirrhosis secondary to Hepatitis C. Follows with Hepatology at [facility]. No further intervention planned. Hypoalbuminema and Elevated INR secondary to reduced synthetic function due to Cirrhosis - s/p 2 units FFP 4. DM 2 - Novolog sliding scale. Prognosis poor. Family wants all measures including full resuscitation at this time, hence attempt made to transfer to tertiary care center. Currently, full code. DVT Px - SCDs.
[2018-09-20] MEDS ORDERED: CALCIUM GLUCONATE 10% - 1,000 MG/10 ML VIAL IVPB ONE (20:30)
[2018-09-20] MEDS ORDERED: PIPERACILLIN/TAZOB 3.375 GM 3.375 GM in DEXTROSE 5%-WATER - 50 ML IVPB SCH (21:00)
[2018-09-20] MEDS ORDERED: PIPERACILLIN/TAZOBACTAM 3.375 GM VIAL IVPB ONE (21:22)
[2018-09-20] MEDS: PIPERACILLIN/TAZOB 3.375 GM 3.375 GM in DEXTROSE 5%-WATER - 50 ML IVPB SCH (21:25)
[2018-09-20] MEDS: CHLORHEXIDINE GLUCONATE 4% CLEANSER FOR DECOLONIZATION TP SCH (21:26)
[2018-09-20 21:28] LABS: ANISOCYTOSIS 1+; PLATELET ESTIMATE INCREASED; TARGET CELLS FEW
[2018-09-20 21:50] LABS: BASO % 0.1 % (0-2.0); HEMATOCRIT 27.5 % (35.4-49); LYMPH % 4.6 % (8-40); MCH 27.2 pg (25.7-33.7); MCHC 32.9 g/dl (32.0-35.9); MEAN CELL VOLUME 82.8 fl (80-96); MEAN PLT VOLUME 9.8 fl (7.5-11.1); MONO % 8.5 % (3.8-10.2); NEUT % 86.8 % (42.8-82.8); PLATELET COUNT 449 K/MM3 (134-434); RBC 3.32 M/mm3 (4.00-5.60); RDW 19.4 % (11.9-15.9)
[2018-09-20] MEDS ORDERED: VANCOMYCIN HCL 1,250 MG in DEXTROSE 5%-WATER - 250 ML IVPB ONE (22:00)
[2018-09-20 22:20] LABS: WHITE BLOOD COUNT 40.6 K/mm3 (4.0-10.0)
--- NOTE | 2018-09-20 22:21 | PN ---
Progress Note (short form) - Note Progress Note: Labs noted: Significant for Leukocytosis 14-->17--> 38--> 40.6 H/H 10.9/33.2---> 9/27.5 VIVIENNE Creatinine 0.8 ---> 1.3---> 1.7 Shock liver AST/ALT/ALP: 5421/554/215 Plan: Fluids switched to D5-NS @ 100 mls/hr Labs significant for leukocytosis. ID consult requested. Case discussed with Dr. Ferrell, started on Zosyn 3.375 gm IV Q8H, one dose of IV Vancomycin 1250 mg given. Patient has been persistently hypotensive since 7pm today, 1 L of fluid given without any change in BP. Started on Levophed at 5 mcgs/hr with improvement in BP, now MAP > 65 Called Mr Marin ([phone])at 12:51 AM and updated patient's critical condition. He verbalized understanding.
[2018-09-20] MEDS: OCTREOTIDE ACETATE 1,200 MCG in DEXTROSE 5%-WATER - 488 ML IVPB SCH ×2 (22:38→22:39)
[2018-09-20 23:35] LABS: ALBUMIN 1.3 g/dl (3.4-5.0); ALK PHOS 215 U/L (45-117); ANION GAP 13 MMOL/L (8-16); BILIRUBIN,TOTAL 7.4 mg/dL (0.2-1); BLOOD UREA NITROGEN 30 mg/dL (7-18); CALCIUM 8.1 mg/dL (8.5-10.1); CHLORIDE 106 mmol/L (98-107); CO2 17 mmol/L (21-32); CREATININE 1.7 mg/dL (0.55-1.3); GLUCOSE,RANDOM 66 mg/dL (74-106); MAGNESIUM 2.1 mg/dL (1.8-2.4); PHOSPHOROUS 7.4 mg/dL (2.5-4.9); POTASSIUM 5.8 mmol/L (3.5-5.1); SGOT/AST 5421 U/L (15-37); SGPT/ALT 554 U/L (13-61); SODIUM 136 mmol/L (136-145); TOT PROT 4.8 g/dl (6.4-8.2)
[2018-09-20 23:46] LABS: PLATELET ESTIMATE ADEQUATE
[2018-09-20] MEDS: NOREPINEPHRINE BITARTRATE 4,000 MCG in DEXTROSE 5%-WATER - 496 ML IV SCH (23:51)
[2018-09-21] MEDS: MIDAZOLAM HCL 2 MG/2 ML SINGLE DOSE VIAL IVPUSH PRN (00:28)
[2018-09-21] MEDS: DEXTROSE 5%-NORMAL SALINE 1,000 ML IV SCH ×2 (01:00→16:00)
[2018-09-21] MEDS ORDERED: PT OWN MED DRAWER 7, Y5N ONE (02:18)
[2018-09-21] MEDS ORDERED: fentaNYL CITRATE 250 MCG/5 ML VIAL ONE ×4 (03:17→23:09)
[2018-09-21] MEDS: FENTANYL INJECTION 500 MCG in DEXTROSE 5%-WATER - 90 ML IVPB SCH ×4 (03:24→21:36)
[2018-09-21] MEDS ORDERED: MIDAZOLAM HCL 2 MG/2 ML SINGLE DOSE VIAL IVPUSH PRN (03:58)
[2018-09-21] MEDS ORDERED: DEXTROSE 5%-WATER - 50 ML IVPB ONE ×3 (05:17→20:08)
[2018-09-21] MEDS ORDERED: PIPERACILLIN/TAZOBACTAM 3.375 GM VIAL IVPB ONE ×2 (05:17→14:16)
[2018-09-21] MEDS: PIPERACILLIN/TAZOB 3.375 GM 3.375 GM in DEXTROSE 5%-WATER - 50 ML IVPB SCH ×2 (05:20→14:17)
[2018-09-21 06:15] LABS: BASO % 0.1 % (0-2.0); EOS % 0.1 % (0-4.5); HEMATOCRIT 27.1 % (35.4-49); HEMOGLOBIN 8.5 GM/dL (11.7-16.9); LYMPH % 4.6 % (8-40); MCHC 31.4 g/dl (32.0-35.9); MONO % 7.5 % (3.8-10.2); NEUT % 87.7 % (42.8-82.8); PLATELET COUNT 405 K/MM3 (134-434); RBC 3.15 M/mm3 (4.00-5.60)
--- NOTE | 2018-09-21 06:15 | PN ---
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 Source of bleeding not identified on EGD. OBJECTIVE: Vital Signs Period Temp Pulse Resp BP Sys/Louis Pulse Ox Last 24 Hr 97.8 F-99.3 F 85-123 12-20 63-98/43-79 90-92 GENERAL: The patient is sedated and intubated. HEAD: Normal with no signs of trauma. EYES: PERRL, scleral icterus. No ptosis. ENT: Ears normal, nares patent, oropharynx clear without exudates, moist mucous membranes. NECK: Trachea midline. LUNGS: Breath sounds equal, clear to auscultation bilaterally, no wheezes, no crackles, no accessory muscle use. HEART: Regular rate and rhythm, S1, S2 without murmur, rub or gallop. ABDOMEN: Soft, tympanic, fluid wave, disteneded, decreased bowel sounds. EXTREMITIES: 2+ pulses, warm, well-perfused, no edema. NEUROLOGICAL: Intubated and sedated. PSYCH: Intubated and sedated. SKIN: Warm, dry, normal turgor, no rashes or lesions noted Laboratory Results - last 24 hr 09/19/18 09/20/18 09/20/18 19:43 05:30 05:30 WBC 17.1 H RBC 3.89 L Hgb 10.6 L Hct 31.8 L D MCV 81.8 MCH 27.1 MCHC 33.2 RDW 19.3 H Plt Count 406 MPV 9.6 Absolute Neuts (auto) 13.2 H Neutrophils % 77.4 D Neutrophils % (Manual) Band Neutrophils % Lymphocytes % 11.6 D Lymphocytes % (Manual) Monocytes % 10.7 H Monocytes % (Manual) Eosinophils % 0.0 D Eosinophils % (Manual) Basophils % 0.3 Basophils % (Manual) Nucleated RBC % 0 Hypochromia Platelet Estimate Platelet Comment Anisocytosis Target Cells PT with INR INR PTT (Actin FS) Anticoagulation Therapy Puncture Site No Result Required. ABG pH ABG pCO2 at Pt Temp ABG pO2 at Pt Temp ABG HCO3 ABG O2 Sat (Measured) ABG O2 Content ABG Base Excess Tejas Test Positive O2 Delivery Device Oxygen Flow Rate No Result Required. Vent Mode Vent Rate Mechanical Rate PEEP Pressure Support Vent Sodium Potassium Chloride Carbon Dioxide Anion Gap BUN Creatinine Creat Clearance w eGFR POC Glucometer Random Glucose Lactic Acid Calcium Phosphorus Magnesium Total Bilirubin Direct Bilirubin AST ALT Alkaline Phosphatase Ammonia 372.50 H Creatine Kinase Troponin I B-Natriuretic Peptide Total Protein Albumin 09/20/18 09/20/18 09/20/18 05:30 05:30 07:00 WBC RBC Hgb Hct MCV MCH MCHC RDW Plt Count MPV Absolute Neuts (auto) Neutrophils % Neutrophils % (Manual) Band Neutrophils % Lymphocytes % Lymphocytes % (Manual) Monocytes % Monocytes % (Manual) Eosinophils % Eosinophils % (Manual) Basophils % Basophils % (Manual) Nucleated RBC % Hypochromia Platelet Estimate Platelet Comment Anisocytosis Target Cells PT with INR 19.40 H INR 1.64 H PTT (Actin FS) 36.2 Anticoagulation Therapy Puncture Site ABG pH ABG pCO2 at Pt Temp ABG pO2 at Pt Temp ABG HCO3 ABG O2 Sat (Measured) ABG O2 Content ABG Base Excess Tejas Test O2 Delivery Device Oxygen Flow Rate Vent Mode Vent Rate Mechanical Rate PEEP Pressure Support Vent Sodium 132 L Potassium 5.6 H Chloride 102 Carbon Dioxide 23 Anion Gap 6 L BUN 20 H Creatinine 0.8 Creat Clearance w eGFR > 60 POC Glucometer Random Glucose 245 H Lactic Acid 3.5 H* Calcium 7.5 L Phosphorus Magnesium 2.2 Total Bilirubin 13.0 H Direct Bilirubin 8.7 H AST 461 H ALT 73 H Alkaline Phosphatase 155 H Ammonia Creatine Kinase 62 Troponin I < 0.02 B-Natriuretic Peptide 107.9 Total Protein 5.5 L Albumin 1.6 L 09/20/18 09/20/18 09/20/18 13:06 14:55 14:55 WBC 38.3 H* RBC 4.07 Hgb 10.9 L Hct 33.2 L MCV 81.6 MCH 26.8 MCHC 32.9 RDW 19.1 H Plt Count 574 H D MPV 10.1 Absolute Neuts (auto) 34.4 H Neutrophils % 89.8 H Neutrophils % (Manual) 77.0 Band Neutrophils % 20.0 Lymphocytes % 3.8 L D Lymphocytes % (Manual) 2.0 L Monocytes % 6.2 Monocytes % (Manual) 1 L Eosinophils % 0.0 Eosinophils % (Manual) 0.0 Basophils % 0.2 Basophils % (Manual) 0.0 Nucleated RBC % 0 Hypochromia 1+ Platelet Estimate Increased Platelet Comment No clumping noted Anisocytosis 1+ Target Cells Few PT with INR 21.10 H INR 1.78 H PTT (Actin FS) 36.8 H Anticoagulation Therapy Puncture Site ABG pH ABG pCO2 at Pt Temp ABG pO2 at Pt Temp ABG HCO3 ABG O2 Sat (Measured) ABG O2 Content ABG Base Excess Tejas Test O2 Delivery Device Oxygen Flow Rate Vent Mode Vent Rate Mechanical Rate PEEP Pressure Support Vent Sodium Potassium Chloride Carbon Dioxide Anion Gap BUN Creatinine Creat Clearance w eGFR POC Glucometer 119 Random Glucose Lactic Acid Calcium Phosphorus Magnesium Total Bilirubin Direct Bilirubin AST ALT Alkaline Phosphatase Ammonia Creatine Kinase Troponin I B-Natriuretic Peptide Total Protein Albumin 09/20/18 09/20/18 09/20/18 14:55 14:55 17:22 WBC RBC Hgb Hct MCV MCH MCHC RDW Plt Count MPV Absolute Neuts (auto) Neutrophils % Neutrophils % (Manual) Band Neutrophils % Lymphocytes % Lymphocytes % (Manual) Monocytes % Monocytes % (Manual) Eosinophils % Eosinophils % (Manual) Basophils % Basophils % (Manual) Nucleated RBC % Hypochromia Platelet Estimate Platelet Comment Anisocytosis Target Cells PT with INR INR PTT (Actin FS) Cancelled Anticoagulation Therapy Puncture Site ABG pH ABG pCO2 at Pt Temp ABG pO2 at Pt Temp ABG HCO3 ABG O2 Sat (Measured) ABG O2 Content ABG Base Excess Tejas Test O2 Delivery Device Oxygen Flow Rate Vent Mode Vent Rate Mechanical Rate PEEP Pressure Support Vent Sodium 133 L Potassium 6.3 H* Chloride 104 Carbon Dioxide 21 Anion Gap 8 BUN 27 H Creatinine 1.3 Creat Clearance w eGFR 57.10 POC Glucometer 67 Random Glucose 63 L Lactic Acid Calcium 7.9 L Phosphorus 6.0 H Magnesium 2.1 Total Bilirubin 10.3 H Direct Bilirubin AST 3668 H ALT 341 H Alkaline Phosphatase 213 H Ammonia Creatine Kinase Troponin I B-Natriuretic Peptide Total Protein 5.6 L Albumin 1.5 L 09/20/18 09/20/18 09/20/18 19:08 19:30 21:00 WBC 40.6 H* RBC 3.32 L Hgb 9.0 L Hct 27.5 L D MCV 82.8 MCH 27.2 MCHC 32.9 RDW 19.4 H Plt Count 449 H D MPV 9.8 Absolute Neuts (auto) 35.2 H Neutrophils % 86.8 H Neutrophils % (Manual) 70.0 Band Neutrophils % 12.0 Lymphocytes % 4.6 L D Lymphocytes % (Manual) 16.0 D Monocytes % 8.5 Monocytes % (Manual) 2 L D Eosinophils % 0.0 Eosinophils % (Manual) 0.0 Basophils % 0.1 Basophils % (Manual) 0.0 Nucleated RBC % 1 H Hypochromia Platelet Estimate Adequate Platelet Comment No clumping noted Anisocytosis Target Cells PT with INR INR PTT (Actin FS) Anticoagulation Therapy No Result Required. Puncture Site Right radial ABG pH 7.28 L ABG pCO2 at Pt Temp 32.7 L ABG pO2 at Pt Temp 63.7 L ABG HCO3 14.7 L ABG O2 Sat (Measured) 87.7 L ABG O2 Content 10.8 L ABG Base Excess -10.8 L Tejas Test Positive O2 Delivery Device No Result Required. Oxygen Flow Rate 40% Vent Mode Ak Vent Rate No Result Required. Mechanical Rate Yes PEEP 5.0 Pressure Support Vent 400 Sodium Potassium Chloride Carbon Dioxide Anion Gap BUN Creatinine Creat Clearance w eGFR POC Glucometer 118 Random Glucose Lactic Acid Calcium Phosphorus Magnesium Total Bilirubin Direct Bilirubin AST ALT Alkaline Phosphatase Ammonia Creatine Kinase Troponin I B-Natriuretic Peptide Total Protein Albumin 09/20/18 09/20/18 21:00 21:30 WBC RBC Hgb Hct MCV MCH MCHC RDW Plt Count MPV Absolute Neuts (auto) Neutrophils % Neutrophils % (Manual) Band Neutrophils % Lymphocytes % Lymphocytes % (Manual) Monocytes % Monocytes % (Manual) Eosinophils % Eosinophils % (Manual) Basophils % Basophils % (Manual) Nucleated RBC % Hypochromia Platelet Estimate Platelet Comment Anisocytosis Target Cells PT with INR INR PTT (Actin FS) Anticoagulation Therapy Puncture Site ABG pH ABG pCO2 at Pt Temp ABG pO2 at Pt Temp ABG HCO3 ABG O2 Sat (Measured) ABG O2 Content ABG Base Excess Tejas Test O2 Delivery Device Oxygen Flow Rate Vent Mode Vent Rate Mechanical Rate PEEP Pressure Support Vent Sodium 136 Potassium 5.8 H Chloride 106 Carbon Dioxide 17 L Anion Gap 13 BUN 30 H Creatinine 1.7 H Creat Clearance w eGFR 41.90 POC Glucometer 77 Random Glucose 66 L Lactic Acid Calcium 8.1 L Phosphorus 7.4 H Magnesium 2.1 Total Bilirubin 7.4 H Direct Bilirubin AST 5421 H ALT 554 H Alkaline Phosphatase 215 H Ammonia Creatine Kinase Troponin I B-Natriuretic Peptide Total Protein 4.8 L Albumin 1.3 L Active Medications Generic Name Dose Route Start Last Admin Trade Name Freq PRN Reason Stop Dose Admin Chlorhexidine Gluconate 1 applic 09/20/18 22:00 09/20/18 21:26 Hibiclens For Decolonization - TP 1 applic HS ALYSA Administration Octreotide Acetate 1,200 mcg/ 500 mls @ 20.83 mls/hr 09/19/18 19:00 09/20/18 22:39 Dextrose IVPB Not Given ASDIR ALYSA 50 MCG/HR Fentanyl 500 mcg/ Dextrose 100 mls @ 0 mls/hr 09/19/18 19:30 09/21/18 03:29 IVPB 100 mcg/hr TITR ALYSA 20 mls/hr Titration Protocol 0 MCG/HR Pantoprazole Sodium 80 mg/ 100 mls @ 10 mls/hr 09/19/18 23:30 09/20/18 22:40 Sodium Chloride IVPB Not Given Q10H ALYSA 8 MG/HR Piperacillin Sod/Tazobactam 50 mls @ 100 mls/hr 09/20/18 21:00 09/21/18 05:20 Sod 3.375 gm/ Dextrose IVPB 09/21/18 13:29 100 mls/hr Q8H ALYSA Administration Norepinephrine Bitartrate 4, 500 mls @ 37.5 mls/hr 09/20/18 22:30 09/21/18 04 :51 000 mcg/ Dextrose IV 15 mcg/min TITR ALYSA 112.5 mls/hr Titration Protocol 5 MCG/MIN Dextrose/Sodium Chloride 1,000 mls @ 100 mls/hr 09/21/18 00:45 09/21/18 01:00 D5-Ns - IV 100 mls/hr ASDIR ALYSA Administration Insulin Aspart 1 vial 09/20/18 07:00 09/20/18 21:31 Novolog Vial Sliding Scale - SQ Not Given ACHS ALYSA Protocol Midazolam HCl 2 mg 09/21/18 03:58 09/21/18 04:08 Versed - IVPUSH 2 mg Q2H PRN Administration AGITATION Mupirocin 1 applic 09/20/18 10:00 09/20/18 21:26 Bactroban Ointment (For Decolonization) - NS 09/25/18 09:59 1 applic BID ALYSA Administration IMAGIN) CT abdomen/pelvis 09/20/18: distal esophagus dilated with fluid. large volume ascites present. mild thickening of colonic wall with no pneumatosis. findings may represent colitis, changes secondary to portal hypertension may have a similar picture. no free air is seen. stomach is distended with food stuff and air. NG tube decompression may be of benefit. demineralization of small bowel content is noted. max small bowel dilation measures up to 3.5 cm. distal small bowel compressed. transition point appears to be within the right abdomen. no clear cut transition is noted, which could be secondary to an ileus. ASSESSMENT/PLAN: 58 y/o M w/ PMHx 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 2/2 hepatitis C, esophageal varices, portal vein thrombosis, DM, p/w massive UGIB, intubated and sedated and admitted to ICU CARDIOVASCULAR -right sided femoral line placed 09/19/18 -hemodynamically stable, no pressors at this time GASTROINTESTINAL #GIB -Emergent EGD failed to visualize source of bleeding -5U PRBC and 2U FFP given in ED -Protonix drip gtt -Octreotide drip -NPO -Lactate 3.5 -H/H stable, 9.2/27.3 >> 10.6/31.8 >> 10.9/33.2 -Ceftriaxone #Obstruction -CT A/P 09/20/18 shows no perforation. ileus vs SBO. -GI recs no NG or rectal tube secondary to bleeding varices; health care proxy stated he did not want NG tube -Healthcare proxy declined Toni tube at this time -Healthcare proxy to return to ICU to continue discussing overall plan for care #HCC/HCV -Transaminitis -Hyperbilirubinemia -Malignant liver lesions on CT HEME -s/p 2U FFP, 5U PRBC PULMONOLOGY -intubated on AC -sedated on fentanyl and midazolam gtt FEN -NS 75 cc/hour -NPO -Kurtz placed 09/19/18 #HYPERKALEMIA -Continue to monitor and treat PPX -DVT: mechanical AC only -GI: PTX gtt CODE -full DISPO -MICU Visit type - Emergency Visit Emergency Visit: Yes ED Registration Date: 09/19/18 Care time: The patient presented to the Emergency Department on the above date and was hospitalized for further evaluation of their emergent condition. - New Patient This patient is new to me today: No - Critical Care Critical Care patient: Yes Total Critical Care Time (in minutes): 35 Critical Care Statement: The care of this patient involved high complexity decision making to prevent further life threatening deterioration of the patient 's condition and/or to evaluate & treat vital organ system(s) failure or risk of failure. - Discharge Referral Referred to [facility] No
[2018-09-21 06:22] LABS: WHITE BLOOD COUNT 45.1 K/mm3 (4.0-10.0)
[2018-09-21] MEDS: INSULIN SLIDING SCALE (NOVOLOG) 1 VIAL SQ SCH ×4 (07:25→22:06)
[2018-09-21] MEDS ORDERED: NOREPINEPHRINE BITARTRATE 4 MG/4 ML ML IV ONE ×3 (07:37→20:07)
[2018-09-21 07:54] LABS: ALBUMIN 1.3 g/dl (3.4-5.0); ALK PHOS 233 U/L (45-117); ANION GAP 18 MMOL/L (8-16); BILIRUBIN,TOTAL 6.9 mg/dL (0.2-1); BLOOD UREA NITROGEN 33 mg/dL (7-18); CHLORIDE 102 mmol/L (98-107); CO2 11 mmol/L (21-32); CREATININE 2.2 mg/dL (0.55-1.3); GLUCOSE,RANDOM 129 mg/dL (74-106); MAGNESIUM 2.1 mg/dL (1.8-2.4); SGOT/AST 5039 U/L (15-37); SGPT/ALT 673 U/L (13-61); SODIUM 131 mmol/L (136-145); TOT PROT 4.8 g/dl (6.4-8.2)
[2018-09-21 08:01] LABS: PHOSPHOROUS > 9.0 mg/dL (2.5-4.9)
[2018-09-21] MEDS: NOREPINEPHRINE BITARTRATE 4,000 MCG in DEXTROSE 5%-WATER - 496 ML IV SCH ×3 (08:09→21:35)
[2018-09-21] MEDS ORDERED: VASOPRESSIN 20 UNITS/ML VIAL IV ONE ×2 (08:29→16:23)
[2018-09-21] MEDS ORDERED: CALCIUM GLUCONATE 10% - 1,000 MG/10 ML VIAL IVPB ONE (08:30)
--- NOTE | 2018-09-21 08:31 | PN ---
Progress Note (short form) - Note Progress Note: Post Anesthesia Check Patient underwent EGD under general anesthesia post procedure day one for upper GI bleed, The procedure was aborted secondary to excessive bleeding and inability to find source of bleeding. Patient in hypotensive on multiple pressor support and intubated/mechanically ventilated. No apparent anesthetic complications as it appears the patient's grave health is secondary to ongoing GI hemorrhage. Dept of anesthesia will sign off care at this time.
[2018-09-21] MEDS: VASOPRESSIN 50 UNITS in SODIUM CHLORIDE 97.5 ML IVPB SCH ×2 (08:32→16:33)
--- NOTE | 2018-09-21 08:46 | PN ---
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 Source of bleeding not identified on EGD. Pt was seen and examined, intubated and sedated, unable to answer questions. OBJECTIVE: Vital Signs Period Temp Pulse Resp BP Sys/Louis Pulse Ox Last 24 Hr 97.8 F-99.3 F 86-123 12-20 59-97/43-79 90-92 GENERAL: The patient is sedated and intubated. HEAD: Normal with no signs of trauma. EYES: PERRL, scleral icterus. No ptosis. ENT: Ears normal, nares patent, oropharynx clear without exudates, moist mucous membranes. NECK: Trachea midline. LUNGS: Breath sounds equal, clear to auscultation bilaterally, no wheezes, no crackles, no accessory muscle use. HEART: Regular rate and rhythm, S1, S2 without murmur, rub or gallop. ABDOMEN: Soft, tympanic, fluid wave, disteneded, decreased bowel sounds. EXTREMITIES: 2+ pulses, warm, well-perfused, no edema. NEUROLOGICAL: Intubated and sedated. PSYCH: Intubated and sedated. SKIN: Warm, dry, normal turgor, no rashes or lesions noted Laboratory Results - last 24 hr 09/19/18 09/20/18 09/20/18 19:43 05:30 13:06 WBC RBC Hgb Hct MCV MCH MCHC RDW Plt Count MPV Absolute Neuts (auto) Neutrophils % Neutrophils % (Manual) Band Neutrophils % Lymphocytes % Lymphocytes % (Manual) Monocytes % Monocytes % (Manual) Eosinophils % Eosinophils % (Manual) Basophils % Basophils % (Manual) Nucleated RBC % Hypochromia Platelet Estimate Platelet Comment Anisocytosis Target Cells PT with INR INR PTT (Actin FS) Anticoagulation Therapy Puncture Site No Result Required. ABG pH ABG pCO2 at Pt Temp ABG pO2 at Pt Temp ABG HCO3 ABG O2 Sat (Measured) ABG O2 Content ABG Base Excess Tejas Test Positive O2 Delivery Device Oxygen Flow Rate No Result Required. Vent Mode Vent Rate Mechanical Rate PEEP Pressure Support Vent Sodium 132 L Potassium 5.6 H Chloride 102 Carbon Dioxide 23 Anion Gap 6 L BUN 20 H Creatinine 0.8 Creat Clearance w eGFR > 60 POC Glucometer 119 Random Glucose 245 H Lactic Acid Calcium 7.5 L Phosphorus Magnesium 2.2 Total Bilirubin 13.0 H Direct Bilirubin 8.7 H AST 461 H ALT 73 H Alkaline Phosphatase 155 H Creatine Kinase 62 Troponin I < 0.02 B-Natriuretic Peptide 107.9 Total Protein 5.5 L Albumin 1.6 L 09/20/18 09/20/18 09/20/18 14:55 14:55 14:55 WBC 38.3 H* RBC 4.07 Hgb 10.9 L Hct 33.2 L MCV 81.6 MCH 26.8 MCHC 32.9 RDW 19.1 H Plt Count 574 H D MPV 10.1 Absolute Neuts (auto) 34.4 H Neutrophils % 89.8 H Neutrophils % (Manual) 77.0 Band Neutrophils % 20.0 Lymphocytes % 3.8 L D Lymphocytes % (Manual) 2.0 L Monocytes % 6.2 Monocytes % (Manual) 1 L Eosinophils % 0.0 Eosinophils % (Manual) 0.0 Basophils % 0.2 Basophils % (Manual) 0.0 Nucleated RBC % 0 Hypochromia 1+ Platelet Estimate Increased Platelet Comment No clumping noted Anisocytosis 1+ Target Cells Few PT with INR 21.10 H INR 1.78 H PTT (Actin FS) 36.8 H Anticoagulation Therapy Puncture Site ABG pH ABG pCO2 at Pt Temp ABG pO2 at Pt Temp ABG HCO3 ABG O2 Sat (Measured) ABG O2 Content ABG Base Excess Tejas Test O2 Delivery Device Oxygen Flow Rate Vent Mode Vent Rate Mechanical Rate PEEP Pressure Support Vent Sodium 133 L Potassium 6.3 H* Chloride 104 Carbon Dioxide 21 Anion Gap 8 BUN 27 H Creatinine 1.3 Creat Clearance w eGFR 57.10 POC Glucometer Random Glucose 63 L Lactic Acid Calcium 7.9 L Phosphorus 6.0 H Magnesium 2.1 Total Bilirubin 10.3 H Direct Bilirubin AST 3668 H ALT 341 H Alkaline Phosphatase 213 H Creatine Kinase Troponin I B-Natriuretic Peptide Total Protein 5.6 L Albumin 1.5 L 09/20/18 09/20/18 09/20/18 14:55 17:22 19:08 WBC RBC Hgb Hct MCV MCH MCHC RDW Plt Count MPV Absolute Neuts (auto) Neutrophils % Neutrophils % (Manual) Band Neutrophils % Lymphocytes % Lymphocytes % (Manual) Monocytes % Monocytes % (Manual) Eosinophils % Eosinophils % (Manual) Basophils % Basophils % (Manual) Nucleated RBC % Hypochromia Platelet Estimate Platelet Comment Anisocytosis Target Cells PT with INR INR PTT (Actin FS) Cancelled Anticoagulation Therapy Puncture Site ABG pH ABG pCO2 at Pt Temp ABG pO2 at Pt Temp ABG HCO3 ABG O2 Sat (Measured) ABG O2 Content ABG Base Excess Tejas Test O2 Delivery Device Oxygen Flow Rate Vent Mode Vent Rate Mechanical Rate PEEP Pressure Support Vent Sodium Potassium Chloride Carbon Dioxide Anion Gap BUN Creatinine Creat Clearance w eGFR POC Glucometer 67 118 Random Glucose Lactic Acid Calcium Phosphorus Magnesium Total Bilirubin Direct Bilirubin AST ALT Alkaline Phosphatase Creatine Kinase Troponin I B-Natriuretic Peptide Total Protein Albumin 09/20/18 09/20/18 09/20/18 19:30 21:00 21:00 WBC 40.6 H* RBC 3.32 L Hgb 9.0 L Hct 27.5 L D MCV 82.8 MCH 27.2 MCHC 32.9 RDW 19.4 H Plt Count 449 H D MPV 9.8 Absolute Neuts (auto) 35.2 H Neutrophils % 86.8 H Neutrophils % (Manual) 70.0 Band Neutrophils % 12.0 Lymphocytes % 4.6 L D Lymphocytes % (Manual) 16.0 D Monocytes % 8.5 Monocytes % (Manual) 2 L D Eosinophils % 0.0 Eosinophils % (Manual) 0.0 Basophils % 0.1 Basophils % (Manual) 0.0 Nucleated RBC % 1 H Hypochromia Platelet Estimate Adequate Platelet Comment No clumping noted Anisocytosis Target Cells PT with INR INR PTT (Actin FS) Anticoagulation Therapy No Result Required. Puncture Site Right radial ABG pH 7.28 L ABG pCO2 at Pt Temp 32.7 L ABG pO2 at Pt Temp 63.7 L ABG HCO3 14.7 L ABG O2 Sat (Measured) 87.7 L ABG O2 Content 10.8 L ABG Base Excess -10.8 L Tejas Test Positive O2 Delivery Device No Result Required. Oxygen Flow Rate 40% Vent Mode Ak Vent Rate No Result Required. Mechanical Rate Yes PEEP 5.0 Pressure Support Vent 400 Sodium 136 Potassium 5.8 H Chloride 106 Carbon Dioxide 17 L Anion Gap 13 BUN 30 H Creatinine 1.7 H Creat Clearance w eGFR 41.90 POC Glucometer Random Glucose 66 L Lactic Acid Calcium 8.1 L Phosphorus 7.4 H Magnesium 2.1 Total Bilirubin 7.4 H Direct Bilirubin AST 5421 H ALT 554 H Alkaline Phosphatase 215 H Creatine Kinase Troponin I B-Natriuretic Peptide Total Protein 4.8 L Albumin 1.3 L 09/20/18 09/21/18 09/21/18 21:30 05:30 05:30 WBC 45.1 H* RBC 3.15 L Hgb 8.5 L Hct 27.1 L MCV 86.0 MCH 27.0 MCHC 31.4 L RDW 19.0 H Plt Count 405 MPV 10.0 Absolute Neuts (auto) 39.5 H Neutrophils % 87.7 H Neutrophils % (Manual) Band Neutrophils % Lymphocytes % 4.6 L Lymphocytes % (Manual) Monocytes % 7.5 Monocytes % (Manual) Eosinophils % 0.1 D Eosinophils % (Manual) Basophils % 0.1 Basophils % (Manual) Nucleated RBC % 1 H Hypochromia Platelet Estimate Platelet Comment Anisocytosis Target Cells PT with INR INR PTT (Actin FS) Anticoagulation Therapy Puncture Site ABG pH ABG pCO2 at Pt Temp ABG pO2 at Pt Temp ABG HCO3 ABG O2 Sat (Measured) ABG O2 Content ABG Base Excess Tejas Test O2 Delivery Device Oxygen Flow Rate Vent Mode Vent Rate Mechanical Rate PEEP Pressure Support Vent Sodium 131 L Potassium 7.0 H* Chloride 102 Carbon Dioxide 11 L Anion Gap 18 H BUN 33 H Creatinine 2.2 H Creat Clearance w eGFR 31.12 POC Glucometer 77 Random Glucose 129 H Lactic Acid Calcium 8.0 L Phosphorus > 9.0 H* Magnesium 2.1 Total Bilirubin 6.9 H Direct Bilirubin AST 5039 H ALT 673 H Alkaline Phosphatase 233 H Creatine Kinase Troponin I B-Natriuretic Peptide Total Protein 4.8 L Albumin 1.3 L 09/21/18 09/21/18 05:30 07:23 WBC RBC Hgb Hct MCV MCH MCHC RDW Plt Count MPV Absolute Neuts (auto) Neutrophils % Neutrophils % (Manual) Band Neutrophils % Lymphocytes % Lymphocytes % (Manual) Monocytes % Monocytes % (Manual) Eosinophils % Eosinophils % (Manual) Basophils % Basophils % (Manual) Nucleated RBC % Hypochromia Platelet Estimate Platelet Comment Anisocytosis Target Cells PT with INR INR PTT (Actin FS) Anticoagulation Therapy Puncture Site ABG pH ABG pCO2 at Pt Temp ABG pO2 at Pt Temp ABG HCO3 ABG O2 Sat (Measured) ABG O2 Content ABG Base Excess Tejas Test O2 Delivery Device Oxygen Flow Rate Vent Mode Vent Rate Mechanical Rate PEEP Pressure Support Vent Sodium Potassium Chloride Carbon Dioxide Anion Gap BUN Creatinine Creat Clearance w eGFR POC Glucometer 129 Random Glucose Lactic Acid 14.1 H* Calcium Phosphorus Magnesium Total Bilirubin Direct Bilirubin AST ALT Alkaline Phosphatase Creatine Kinase Troponin I B-Natriuretic Peptide Total Protein Albumin Active Medications Generic Name Dose Route Start Last Admin Trade Name Delmy PRN Reason Stop Dose Admin Chlorhexidine Gluconate 1 applic 09/20/18 22:00 09/20/18 21:26 Hibiclens For Decolonization - TP 1 applic HS ALYSA Administration Octreotide Acetate 1,200 mcg/ 500 mls @ 20.83 mls/hr 09/19/18 19:00 09/20/18 22:39 Dextrose IVPB Not Given ASDIR ALYSA 50 MCG/HR Fentanyl 500 mcg/ Dextrose 100 mls @ 0 mls/hr 09/19/18 19:30 09/21/18 03:29 IVPB 100 mcg/hr TITR ALYSA 20 mls/hr Titration Protocol 0 MCG/HR Pantoprazole Sodium 80 mg/ 100 mls @ 10 mls/hr 09/19/18 23:30 09/20/18 22:40 Sodium Chloride IVPB Not Given Q10H ALYSA 8 MG/HR Piperacillin Sod/Tazobactam 50 mls @ 100 mls/hr 09/20/18 21:00 09/21/18 05:20 Sod 3.375 gm/ Dextrose IVPB 09/21/18 13:29 100 mls/hr Q8H ALYSA Administration Norepinephrine Bitartrate 4, 500 mls @ 37.5 mls/hr 09/20/18 22:30 09/21/18 08 :09 000 mcg/ Dextrose IV 30 mcg/min TITR ALYSA 225 mls/hr Administration Protocol 5 MCG/MIN Dextrose/Sodium Chloride 1,000 mls @ 100 mls/hr 09/21/18 00:45 09/21/18 01:00 D5-Ns - IV 100 mls/hr ASDIR ALYSA Administration Vasopressin 50 units/ Sodium 100 mls @ 4 mls/hr 09/21/18 08:30 09/21/18 08:32 Chloride IVPB 2 units/hr ASDIR ALYSA 4 mls/hr Administration Protocol 2 UNITS/HR Insulin Aspart 1 vial 09/20/18 07:00 09/21/18 07:25 Novolog Vial Sliding Scale - SQ Not Given ACHS ALYSA Protocol Midazolam HCl 2 mg 09/21/18 03:58 09/21/18 04:08 Versed - IVPUSH 2 mg Q2H PRN Administration AGITATION Mupirocin 1 applic 09/20/18 10:00 09/20/18 21:26 Bactroban Ointment (For Decolonization) - NS 09/25/18 09:59 1 applic BID ALYSA Administration IMAGIN) CT abdomen/pelvis 09/20/18: distal esophagus dilated with fluid. large volume ascites present. mild thickening of colonic wall with no pneumatosis. findings may represent colitis, changes secondary to portal hypertension may have a similar picture. no free air is seen. stomach is distended with food stuff and air. NG tube decompression may be of benefit. demineralization of small bowel content is noted. max small bowel dilation measures up to 3.5 cm. distal small bowel compressed. transition point appears to be within the right abdomen. no clear cut transition is noted, which could be secondary to an ileus. ASSESSMENT/PLAN: 58 y/o M w/ PMHx 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 Pt now has multiorgan failure and is requiring 2 vasopressors. CARDIOVASCULAR -right sided femoral line placed 09/19/18 -Levophed required overnight, still hypotensive -Vasopressin added -Hydrocortisone 50 mg Q6H GASTROINTESTINAL #GIB -Emergent EGD failed to visualize source of bleeding -5U PRBC and 2U FFP given in ED 09/19/18 -Protonix drip gtt -Octreotide drip -NPO -Lactate 3.5>>14.1 -H/H down trendin.2/27.3 >> 10.6/31.8 >> 10.9/33.2 >> 8.5/27.1 >> 6.4/22.1 -2U PRBC ordered 09/21/18 #Obstruction -CT A/P 09/20/18 shows no perforation. ileus vs SBO. -Per GI heathcare proxy now wants OG tube -OB tube placed by GI -650cc suctioned from OG #HCC/HCV -Transaminitis -Hyperbilirubinemia -Malignant liver lesions on CT -Increasing LFTs concerning for shock liver -Continue to monitor HEME -s/p 2U FFP, 5U PRBC -H/H down trendin.2/27.3 >> 10.6/31.8 >> 10.9/33.2 >> 8.5/27.1 >> 8.3/27 >> 6.4/22.1 -2U PRBC ordered 09/21/18 -Continue to monitor #Leukocytosis -17.1>>38.3>>45.1>>61.6 -Zosyn and Vancomycin per ID PULMONOLOGY -intubated on AC -sedated on fentanyl and midazolam gtt -morphine 1 mg Q2 hours for pain control NEPHROLOGY #VIVIENNE -BUN/Cr 30/1.7>>33/2.2>>33/2.5>>32/2.8 -D5/NS at 100 cc/hour FEN -D5/NS at 100cc/hour -NPO -Kurtz placed 09/19/18 -OG tube placed 09/21/18 -Right femoral line placed 09/19/18 #HYPERKALEMIA -6.23>>5.6>>6.3>>7.0>>7.3>>7.0 -Continue to treat and monitor #HYPERPHOSPHATEMIA -Continue to monitor -Acute renal failure -Multiorgan failure -Nephro consult placed PPX -DVT: mechanical AC only -GI: PTX gtt CODE -full DISPO -MICU -Poor prognosis Visit type - Emergency Visit Emergency Visit: Yes ED Registration Date: 09/19/18 Care time: The patient presented to the Emergency Department on the above date and was hospitalized for further evaluation of their emergent condition. - New Patient This patient is new to me today: No - Critical Care Critical Care patient: Yes Total Critical Care Time (in minutes): 35 Critical Care Statement: The care of this patient involved high complexity decision making to prevent further life threatening deterioration of the patient 's condition and/or to evaluate & treat vital organ system(s) failure or risk of failure. - Discharge Referral Referred to [facility] No
[2018-09-21] MEDS ORDERED: ALBUTEROL SO4 0.5 % INH SOLN 2.5 MG/0.5 ML VIAL.NEB. NEB PRN (08:55)
[2018-09-21] MEDS ORDERED: DEXTROSE 50%-WATER - 25 GM/50 ML VIAL ONE ×4 (09:13→22:47)
[2018-09-21] MEDS ORDERED: INSULIN (NOVOLOG) ASPART 100 UNITS/ML 10ML VIAL ONE (09:14)
[2018-09-21] MEDS ORDERED: DEXTROSE 50%-WATER - 25 GM/50 ML VIAL IVPUSH ONE ×4 (09:15→22:30)
[2018-09-21] MEDS ORDERED: INSULIN REGULAR HUMAN 100 UNITS/ML *VIAL IVPUSH ONE ×4 (09:15→22:30)
[2018-09-21 10:39] LABS: BASO % 0.5 % (0-2.0); HEMOGLOBIN 8.3 GM/dL (11.7-16.9); LYMPH % 3.4 % (8-40); MCH 27.3 pg (25.7-33.7); MCHC 30.7 g/dl (32.0-35.9); MEAN CELL VOLUME 89.1 fl (80-96); MEAN PLT VOLUME 10.1 fl (7.5-11.1); MONO % 7.4 % (3.8-10.2); NEUT % 88.7 % (42.8-82.8); PLATELET COUNT 372 K/MM3 (134-434); RBC 3.03 M/mm3 (4.00-5.60)
[2018-09-21 10:45] LABS: WHITE BLOOD COUNT 47.9 K/mm3 (4.0-10.0)
--- NOTE | 2018-09-21 10:49 | EKG ---
Test Reason : Blood Pressure : / mmHG Vent. Rate : 101 BPM Atrial Rate : 000 BPM P-R Int : 000 ms QRS Dur : 110 ms QT Int : 184 ms P-R-T Axes : 000 157 029 degrees QTc Int : 239 ms SINUS TACHYCARDIA WITH 1ST DEGREE A-V BLOCK INCOMPLETE RIGHT BUNDLE BRANCH BLOCK LOW VOLTAGE QRS ABNORMAL ECG Confirmed by PEDRO LONG MD ([id number]) on 09/21/2018 10:49:04 AM Referred By: BRIE COLLIER Confirmed By:PEDRO LONG MD
[2018-09-21] MEDS: MUPIROCIN 2% TOPICAL OINTMENT FOR DECOLONIZATION NS SCH ×2 (10:52→21:38)
[2018-09-21] MEDS: PANTOPRAZOLE SODIUM 80 MG in SODIUM CHLORIDE 100 ML IVPB SCH ×4 (10:55→23:00)
--- NOTE | 2018-09-21 11:01 | EKG ---
Test Reason : Blood Pressure : / mmHG Vent. Rate : 115 BPM Atrial Rate : 115 BPM P-R Int : 170 ms QRS Dur : 078 ms QT Int : 336 ms P-R-T Axes : 031 064 002 degrees QTc Int : 464 ms SINUS TACHYCARDIA LOW VOLTAGE QRS CANNOT RULE OUT LATERAL INFARCT NONSPECIFIC ST ABNORMALITY ABNORMAL ECG Confirmed by PEDRO LONG MD ([id number]) on 09/21/2018 11:00:39 AM Referred By: Confirmed By:PEDRO LONG MD
[2018-09-21 11:10] LABS: ARTERIAL BLD GAS O2 SATURATION 86.1 % (95-98); ARTERIAL BLOOD GAS BASE EXCESS -21.5 meq/l (-2-2); ARTERIAL BLOOD GAS PCO2 40.5 mmHg (35-45); ARTERIAL BLOOD GAS pH 6.95 (7.35-7.45)
[2018-09-21 11:11] LABS: ALLENS TEST POSITIVE
[2018-09-21] MEDS ORDERED: MORPHINE SULFATE 2 MG/ML VIAL IVPUSH PRN (11:18)
[2018-09-21 11:23] LABS: PROTHROMBIN TIME (PATIENT) 47.9 SEC (9.7-13.0)
[2018-09-21 11:26] LABS: ACTIVATED PTT 66.2 SECONDS (25.2-36.5)
[2018-09-21 11:26] LABS: ALBUMIN 1.3 g/dl (3.4-5.0); ALK PHOS 240 U/L (45-117); ANION GAP 19 MMOL/L (8-16); BLOOD UREA NITROGEN 33 mg/dL (7-18); CALCIUM 8.6 mg/dL (8.5-10.1); CHLORIDE 102 mmol/L (98-107); CO2 11 mmol/L (21-32); CREATININE 2.5 mg/dL (0.55-1.3); GLUCOSE,RANDOM 117 mg/dL (74-106); SGOT/AST 5620 U/L (15-37); SGPT/ALT 704 U/L (13-61); SODIUM 132 mmol/L (136-145); TOT PROT 4.7 g/dl (6.4-8.2)
[2018-09-21 11:36] LABS: PHOSPHOROUS > 9.0 mg/dL (2.5-4.9); POTASSIUM 7.3 mmol/L (3.5-5.1)
[2018-09-21] MEDS ORDERED: SODIUM BICARBONATE 8.4% 50 MEQ/50 ML DISP.SYRIN IVPUSH ONE (11:45)
[2018-09-21] MEDS ORDERED: DEXTROSE 10%-WATER 500 ML INFUS.BAG IV ONE (11:47)
--- NOTE | 2018-09-21 11:56 | PN ---
Teaching Attending Note Name of Resident: Afsaneh Richardson ATTENDING PHYSICIAN STATEMENT I saw and evaluated the patient. I reviewed the resident's note and discussed the case with the resident. I agree with the resident's findings and plan as documented. SUBJECTIVE: Patient seen and examined in the ICU. Intubated on AC Mode of vent. Sedated. Still with abdominal distention. High dose NE (30mcq) and Vasopressin. Right femoral TLC. HCP apparently refused insertion of NGT for decompression yesterday. Worsening of renal function with severe hyperkalemia. Was already given medical management. Intake & Output 09/18/18 09/19/18 09/20/18 09/21/18 23:59 23:59 23:59 23:59 Intake Total 1600 1492 2628 Output Total 50 330 150 Balance 1550 1162 2478 Weight 180 lb 181 lb 7 oz 190 lb Last Vital Signs Temp Pulse Resp BP Pulse Ox 97.8 F 100 H 14 74/54 L 90 L 09/21/18 10:00 09/21/18 11:00 09/21/18 11:15 09/21/18 11:00 09/21/18 01:53 Active Medications Albuterol Sulfate (Ventolin 0.5% -) 1 amp NEB Q4H PRN PRN Reason: SHORT OF BREATH/WHEEZING Chlorhexidine Gluconate (Hibiclens For Decolonization -) 1 applic TP HS ALYSA Last Admin: 09/20/18 21:26 Dose: 1 applic Dextrose (D10w (500 Ml Bag) -) 500 ml IV ONCE ONE Stop: 09/21/18 11:48 Hydrocortisone Sodium Succinate (Solu-Cortef -) 50 mg IVPUSH Q6H ALYSA Octreotide Acetate 1,200 mcg/ (Dextrose) 500 mls @ 20.83 mls/hr IVPB ASDIR ALYSA Last Admin: 09/20/18 22:39 Dose: Not Given Fentanyl 500 mcg/ Dextrose 100 mls @ 0 mls/hr IVPB TITR ALYSA; Protocol Last Admin: 09/21/18 10:32 Dose: 100 mcg/hr, 20 mls/hr Pantoprazole Sodium 80 mg/ (Sodium Chloride) 100 mls @ 10 mls/hr IVPB Q10H ALYSA Last Admin: 09/21/18 10:55 Dose: 10 mls/hr Piperacillin Sod/Tazobactam (Sod 3.375 gm/ Dextrose) 50 mls @ 100 mls/hr IVPB Q8H [facility] Stop: 09/21/18 13:29 Last Admin: 09/21/18 05:20 Dose: 100 mls/hr Norepinephrine Bitartrate 4, (000 mcg/ Dextrose) 500 mls @ 37.5 mls/hr IV TITR [facility]; Protocol Last Admin: 09/21/18 10:30 Dose: 30 mcg/min, 225 mls/hr Dextrose/Sodium Chloride (D5-Ns -) 1,000 mls @ 100 mls/hr IV ASDIR ALYSA Last Admin: 09/21/18 01:00 Dose: 100 mls/hr Vasopressin 50 units/ Sodium (Chloride) 100 mls @ 4 mls/hr IVPB ASDIR [facility]; Protocol Last Titration: 09/21/18 11:00 Dose: 6 units/hr, 12 mls/hr Insulin Aspart (Novolog Vial Sliding Scale -) 1 vial SQ ACHS [facility]; Protocol Last Admin: 09/21/18 11:34 Dose: Not Given Insulin Human Regular (Novolin R Vial *For Ivpush Or Iv Drip Only*) 10 units IVPUSH ONCE ONE Stop: 09/21/18 11:48 Midazolam HCl (Versed -) 2 mg IVPUSH Q2H PRN PRN Reason: AGITATION Last Admin: 09/21/18 04:08 Dose: 2 mg Morphine Sulfate (Morphine Sulfate) 2 mg IVPUSH Q1H PRN PRN Reason: PAIN LEVEL 4 - 6 Mupirocin (Bactroban Ointment (For Decolonization) -) 1 applic NS BID [facility] Stop: 09/25/18 09:59 Last Admin: 09/21/18 10:52 Dose: 1 applic Sodium Bicarbonate (Sodium Bicarbonate 8.4% -) 50 meq IVPUSH ONCE ONE Stop: 09/21/18 11:46 GENERAL: Intubated and sedated. EYES: pupils are sluggishly reactive EARS, NOSE, THROAT: dried blood noted in mouth NECK: No JVD. LUNGS: few scattered rhonchi, mechanically ventilated HEART: Regular rate and rhythm, normal S1 and S2 without murmur. ABDOMEN: Gross distention, hypoactive BS. UPPER EXTREMITIES: No peripheral edema. LOWER EXTREMITIES: No peripheral edema. NEUROLOGICAL: Intubated. Sedated. SKIN: No lesions or rashes. Laboratory Results - last 24 hr 09/20/18 09/20/18 09/20/18 13:06 14:55 14:55 WBC 38.3 H* RBC 4.07 Hgb 10.9 L Hct 33.2 L MCV 81.6 MCH 26.8 MCHC 32.9 RDW 19.1 H Plt Count 574 H D MPV 10.1 Absolute Neuts (auto) 34.4 H Neutrophils % 89.8 H Neutrophils % (Manual) 77.0 Band Neutrophils % 20.0 Lymphocytes % 3.8 L D Lymphocytes % (Manual) 2.0 L Monocytes % 6.2 Monocytes % (Manual) 1 L Eosinophils % 0.0 Eosinophils % (Manual) 0.0 Basophils % 0.2 Basophils % (Manual) 0.0 Nucleated RBC % 0 Hypochromia 1+ Platelet Estimate Increased Platelet Comment No clumping noted Anisocytosis 1+ Target Cells Few PT with INR 21.10 H INR 1.78 H PTT (Actin FS) 36.8 H Anticoagulation Therapy Puncture Site ABG pH ABG pCO2 at Pt Temp ABG pO2 at Pt Temp ABG HCO3 ABG O2 Sat (Measured) ABG O2 Content ABG Base Excess Tejas Test O2 Delivery Device Oxygen Flow Rate Vent Mode Vent Rate Mechanical Rate PEEP Pressure Support Vent Sodium Potassium Chloride Carbon Dioxide Anion Gap BUN Creatinine Creat Clearance w eGFR POC Glucometer 119 Random Glucose Lactic Acid Calcium Phosphorus Magnesium Total Bilirubin AST ALT Alkaline Phosphatase Total Protein Albumin 09/20/18 09/20/18 09/20/18 14:55 14:55 17:22 WBC RBC Hgb Hct MCV MCH MCHC RDW Plt Count MPV Absolute Neuts (auto) Neutrophils % Neutrophils % (Manual) Band Neutrophils % Lymphocytes % Lymphocytes % (Manual) Monocytes % Monocytes % (Manual) Eosinophils % Eosinophils % (Manual) Basophils % Basophils % (Manual) Nucleated RBC % Hypochromia Platelet Estimate Platelet Comment Anisocytosis Target Cells PT with INR INR PTT (Actin FS) Cancelled Anticoagulation Therapy Puncture Site ABG pH ABG pCO2 at Pt Temp ABG pO2 at Pt Temp ABG HCO3 ABG O2 Sat (Measured) ABG O2 Content ABG Base Excess Tejas Test O2 Delivery Device Oxygen Flow Rate Vent Mode Vent Rate Mechanical Rate PEEP Pressure Support Vent Sodium 133 L Potassium 6.3 H* Chloride 104 Carbon Dioxide 21 Anion Gap 8 BUN 27 H Creatinine 1.3 Creat Clearance w eGFR 57.10 POC Glucometer 67 Random Glucose 63 L Lactic Acid Calcium 7.9 L Phosphorus 6.0 H Magnesium 2.1 Total Bilirubin 10.3 H AST 3668 H ALT 341 H Alkaline Phosphatase 213 H Total Protein 5.6 L Albumin 1.5 L 09/20/18 09/20/18 09/20/18 19:08 19:30 21:00 WBC 40.6 H* RBC 3.32 L Hgb 9.0 L Hct 27.5 L D MCV 82.8 MCH 27.2 MCHC 32.9 RDW 19.4 H Plt Count 449 H D MPV 9.8 Absolute Neuts (auto) 35.2 H Neutrophils % 86.8 H Neutrophils % (Manual) 70.0 Band Neutrophils % 12.0 Lymphocytes % 4.6 L D Lymphocytes % (Manual) 16.0 D Monocytes % 8.5 Monocytes % (Manual) 2 L D Eosinophils % 0.0 Eosinophils % (Manual) 0.0 Basophils % 0.1 Basophils % (Manual) 0.0 Nucleated RBC % 1 H Hypochromia Platelet Estimate Adequate Platelet Comment No clumping noted Anisocytosis Target Cells PT with INR INR PTT (Actin FS) Anticoagulation Therapy No Result Required. Puncture Site Right radial ABG pH 7.28 L ABG pCO2 at Pt Temp 32.7 L ABG pO2 at Pt Temp 63.7 L ABG HCO3 14.7 L ABG O2 Sat (Measured) 87.7 L ABG O2 Content 10.8 L ABG Base Excess -10.8 L Tejas Test Positive O2 Delivery Device No Result Required. Oxygen Flow Rate 40% Vent Mode Ak Vent Rate No Result Required. Mechanical Rate Yes PEEP 5.0 Pressure Support Vent 400 Sodium Potassium Chloride Carbon Dioxide Anion Gap BUN Creatinine Creat Clearance w eGFR POC Glucometer 118 Random Glucose Lactic Acid Calcium Phosphorus Magnesium Total Bilirubin AST ALT Alkaline Phosphatase Total Protein Albumin 09/20/18 09/20/18 09/21/18 21:00 21:30 05:30 WBC 45.1 H* RBC 3.15 L Hgb 8.5 L Hct 27.1 L MCV 86.0 MCH 27.0 MCHC 31.4 L RDW 19.0 H Plt Count 405 MPV 10.0 Absolute Neuts (auto) 39.5 H Neutrophils % 87.7 H Neutrophils % (Manual) Band Neutrophils % Lymphocytes % 4.6 L Lymphocytes % (Manual) Monocytes % 7.5 Monocytes % (Manual) Eosinophils % 0.1 D Eosinophils % (Manual) Basophils % 0.1 Basophils % (Manual) Nucleated RBC % 1 H Hypochromia Platelet Estimate Platelet Comment Anisocytosis Target Cells PT with INR INR PTT (Actin FS) Anticoagulation Therapy Puncture Site ABG pH ABG pCO2 at Pt Temp ABG pO2 at Pt Temp ABG HCO3 ABG O2 Sat (Measured) ABG O2 Content ABG Base Excess Tejas Test O2 Delivery Device Oxygen Flow Rate Vent Mode Vent Rate Mechanical Rate PEEP Pressure Support Vent Sodium 136 Potassium 5.8 H Chloride 106 Carbon Dioxide 17 L Anion Gap 13 BUN 30 H Creatinine 1.7 H Creat Clearance w eGFR 41.90 POC Glucometer 77 Random Glucose 66 L Lactic Acid Calcium 8.1 L Phosphorus 7.4 H Magnesium 2.1 Total Bilirubin 7.4 H AST 5421 H ALT 554 H Alkaline Phosphatase 215 H Total Protein 4.8 L Albumin 1.3 L 09/21/18 09/21/18 09/21/18 05:30 05:30 07:23 WBC RBC Hgb Hct MCV MCH MCHC RDW Plt Count MPV Absolute Neuts (auto) Neutrophils % Neutrophils % (Manual) Band Neutrophils % Lymphocytes % Lymphocytes % (Manual) Monocytes % Monocytes % (Manual) Eosinophils % Eosinophils % (Manual) Basophils % Basophils % (Manual) Nucleated RBC % Hypochromia Platelet Estimate Platelet Comment Anisocytosis Target Cells PT with INR INR PTT (Actin FS) Anticoagulation Therapy Puncture Site ABG pH ABG pCO2 at Pt Temp ABG pO2 at Pt Temp ABG HCO3 ABG O2 Sat (Measured) ABG O2 Content ABG Base Excess Tejas Test O2 Delivery Device Oxygen Flow Rate Vent Mode Vent Rate Mechanical Rate PEEP Pressure Support Vent Sodium 131 L Potassium 7.0 H* Chloride 102 Carbon Dioxide 11 L Anion Gap 18 H BUN 33 H Creatinine 2.2 H Creat Clearance w eGFR 31.12 POC Glucometer 129 Random Glucose 129 H Lactic Acid 14.1 H* Calcium 8.0 L Phosphorus > 9.0 H* Magnesium 2.1 Total Bilirubin 6.9 H AST 5039 H ALT 673 H Alkaline Phosphatase 233 H Total Protein 4.8 L Albumin 1.3 L 09/21/18 09/21/18 09/21/18 10:00 10:00 10:30 WBC 47.9 H* RBC 3.03 L Hgb 8.3 L Hct 27.0 L MCV 89.1 MCH 27.3 MCHC 30.7 L RDW 19.0 H Plt Count 372 MPV 10.1 Absolute Neuts (auto) 42.5 H Neutrophils % 88.7 H Neutrophils % (Manual) Band Neutrophils % Lymphocytes % 3.4 L D Lymphocytes % (Manual) Monocytes % 7.4 Monocytes % (Manual) Eosinophils % 0.0 D Eosinophils % (Manual) Basophils % 0.5 D Basophils % (Manual) Nucleated RBC % 0 Hypochromia Platelet Estimate Platelet Comment Anisocytosis Target Cells PT with INR INR PTT (Actin FS) Anticoagulation Therapy No Result Required. Puncture Site Right radial ABG pH 6.95 L* ABG pCO2 at Pt Temp 40.5 ABG pO2 at Pt Temp 74.0 L ABG HCO3 8.5 L ABG O2 Sat (Measured) 86.1 L ABG O2 Content 7.9 L* ABG Base Excess -21.5 L Tejas Test Positive O2 Delivery Device No Result Required. Oxygen Flow Rate Yes Vent Mode No Result Required. Vent Rate No Result Required. Mechanical Rate No Result Required. PEEP Pressure Support Vent No Result Required. Sodium 132 L Potassium 7.3 H* Chloride 102 Carbon Dioxide 11 L Anion Gap 19 H BUN 33 H Creatinine 2.5 H Creat Clearance w eGFR 26.85 POC Glucometer Random Glucose 117 H Lactic Acid Calcium 8.6 Phosphorus > 9.0 H* Magnesium 2.0 Total Bilirubin 7.0 H AST 5620 H ALT 704 H Alkaline Phosphatase 240 H Total Protein 4.7 L Albumin 1.3 L 09/21/18 10:45 WBC RBC Hgb Hct MCV MCH MCHC RDW Plt Count MPV Absolute Neuts (auto) Neutrophils % Neutrophils % (Manual) Band Neutrophils % Lymphocytes % Lymphocytes % (Manual) Monocytes % Monocytes % (Manual) Eosinophils % Eosinophils % (Manual) Basophils % Basophils % (Manual) Nucleated RBC % Hypochromia Platelet Estimate Platelet Comment Anisocytosis Target Cells PT with INR 47.90 H INR 4.00 H PTT (Actin FS) 66.2 H Anticoagulation Therapy Puncture Site ABG pH ABG pCO2 at Pt Temp ABG pO2 at Pt Temp ABG HCO3 ABG O2 Sat (Measured) ABG O2 Content ABG Base Excess Tejas Test O2 Delivery Device Oxygen Flow Rate Vent Mode Vent Rate Mechanical Rate PEEP Pressure Support Vent Sodium Potassium Chloride Carbon Dioxide Anion Gap BUN Creatinine Creat Clearance w eGFR POC Glucometer Random Glucose Lactic Acid Calcium Phosphorus Magnesium Total Bilirubin AST ALT Alkaline Phosphatase Total Protein Albumin ASSESSMENT/PLAN: Acute Respiratory Failure Worsening Ileus and bowel distention Possible abdominal compartment syndrome Severe Hyperkalemia Upper GI bleed: source could not be identified Cirrhosis Hepatocellular carcinoma Esophageal varices Hepatitis C (S/P treatment) DM2 Portal vein thrombosis Perforation was ruled out on CT imaging Progressive MOF Aggressive medical management of Hyperkalemia: Concern for use of Kayexelate for bowel perforation Close followup of renal function Renal evaluation: Due to shock and hemodynamic instability he is unlikely a candidate for acute HD AC Mode of vent Sedate IVF Normal transfusion thresholds Serial CBC PPI Glycemic control Overall prognosis for meaningful survival is grave. At this point most likely medically futile. Ideally focus should be on comfort measures. Dr Mcdaniels Critical care time spent in reviewing chart, evaluating patient and formulating plan - 36 minutes.
[2018-09-21] MEDS: HYDROCORTISONE SOD SUCCINATE 100 MG/2 ML VIAL IVPUSH SCH (11:57)
[2018-09-21 12:11] LABS: ANISOCYTOSIS 2+; MACROCYTOSIS 1+; OVALOCYTE 1+; PLATELET ESTIMATE NORMAL; TARGET CELLS 1+; TEAR DROP CELLS 1+
[2018-09-21 12:26] LABS: ANISOCYTOSIS 0; MACROCYTOSIS 0; PLATELET ESTIMATE NORMAL
--- NOTE | 2018-09-21 12:57 | PN ---
GI Progress Note Subjective: Patient requiring increased pressor support Increased abdominal distention Dark blood suctioned from mouth No melena reported - Objective Vital Signs: Vital Signs Temperature 97.8 F 09/21/18 10:00 Pulse Rate 103 H 09/21/18 12:00 Respiratory Rate 13 09/21/18 12:00 Blood Pressure 76/53 L 09/21/18 12:00 O2 Sat by Pulse Oximetry (%) 90 L 09/21/18 01:53 Constitutional: Calm Eyes: Yes: Sclera Icterus Cardiovascular: Yes: Tachycardia Respiratory: Yes: Diminished (at bases bilaterall) Gastrointestinal Inspection: Yes: Distention ...Auscultate: Yes: Hypoactive Bowel Sounds ...Percussion: Yes: Tympanitic Neurological: Yes: Other (Sedated, agonally breathing) Labs: CBC, BMP 09/21/18 10:00 09/21/18 10:00 INR, PTT INR 4.00 (0.83-1.09) H 09/21/18 10:45 Fibrinogen 223.0 mg/dL (238-498) L 09/19/18 23:30 Problem List - Problems (1) UGIB (upper gastrointestinal bleed) Assessment/Plan: Patient critically ill, requiring increased pressor support. Spoke with the patient's nephew Tristan again. Explained how gravely ill Mr. Cheng is and that he will likely from the ongoing event. He is opting right now for continued treatment as opposed to comfort care. Is amenable to OG tube placement. Continuing supportive measures Code(s): K92.2 - GASTROINTESTINAL HEMORRHAGE, UNSPECIFIED
--- NOTE | 2018-09-21 13:18 | PN ---
Physical Exam: SUBJECTIVE: Patient seen and examined at bedside in ICU. Intubated and sedated. Gravely ill and rapidly deteriorating. OBJECTIVE: Vital Signs Period Temp Pulse Resp BP Sys/Louis Pulse Ox Last 24 Hr 97.8 F-99.1 F 97-123 12-20 59-97/43-68 90-92 GENERAL: Intubated and sedated. HEENT: NC/AT, PERRLA, +scleral icterus NECK: Trachea midline, no LAD LUNGS: on ventilator HEART: tachycardic no m/r/g ABDOMEN: grossly distended and worsening, tympanitic, positive fluid wave, diffusely jaundiced EXTREMITIES: 2+ pulses, warm, well-perfused, no LE edema NEUROLOGICAL: unable to assess PSYCH: unable to assess SKIN: diffusely jaundiced Laboratory Results - last 24 hr 09/20/18 09/20/18 09/20/18 14:55 14:55 14:55 WBC 38.3 H* RBC 4.07 Hgb 10.9 L Hct 33.2 L MCV 81.6 MCH 26.8 MCHC 32.9 RDW 19.1 H Plt Count 574 H D MPV 10.1 Absolute Neuts (auto) 34.4 H Neutrophils % 89.8 H Neutrophils % (Manual) 77.0 Band Neutrophils % 20.0 Lymphocytes % 3.8 L D Lymphocytes % (Manual) 2.0 L Monocytes % 6.2 Monocytes % (Manual) 1 L Eosinophils % 0.0 Eosinophils % (Manual) 0.0 Basophils % 0.2 Basophils % (Manual) 0.0 Myelocytes % (Man) Promyelocytes % (Man) Blast Cells % (Manual) Nucleated RBC % 0 Metamyelocytes Hypochromia 1+ Platelet Estimate Increased Platelet Comment No clumping noted Polychromasia Poikilocytosis Anisocytosis 1+ Microcytosis Macrocytosis Spherocytes Target Cells Few Tear Drop Cells Ovalocytes [place] Cells PT with INR 21.10 H INR 1.78 H PTT (Actin FS) 36.8 H Anticoagulation Therapy Puncture Site ABG pH ABG pCO2 at Pt Temp ABG pO2 at Pt Temp ABG HCO3 ABG O2 Sat (Measured) ABG O2 Content ABG Base Excess Tejas Test O2 Delivery Device Oxygen Flow Rate Vent Mode Vent Rate Mechanical Rate PEEP Pressure Support Vent Sodium 133 L Potassium 6.3 H* Chloride 104 Carbon Dioxide 21 Anion Gap 8 BUN 27 H Creatinine 1.3 Creat Clearance w eGFR 57.10 POC Glucometer Random Glucose 63 L Lactic Acid Calcium 7.9 L Phosphorus 6.0 H Magnesium 2.1 Total Bilirubin 10.3 H AST 3668 H ALT 341 H Alkaline Phosphatase 213 H Total Protein 5.6 L Albumin 1.5 L 09/20/18 09/20/18 09/20/18 14:55 17:22 19:08 WBC RBC Hgb Hct MCV MCH MCHC RDW Plt Count MPV Absolute Neuts (auto) Neutrophils % Neutrophils % (Manual) Band Neutrophils % Lymphocytes % Lymphocytes % (Manual) Monocytes % Monocytes % (Manual) Eosinophils % Eosinophils % (Manual) Basophils % Basophils % (Manual) Myelocytes % (Man) Promyelocytes % (Man) Blast Cells % (Manual) Nucleated RBC % Metamyelocytes Hypochromia Platelet Estimate Platelet Comment Polychromasia Poikilocytosis Anisocytosis Microcytosis Macrocytosis Spherocytes Target Cells Tear Drop Cells Ovalocytes [place] Cells PT with INR INR PTT (Actin FS) Cancelled Anticoagulation Therapy Puncture Site ABG pH ABG pCO2 at Pt Temp ABG pO2 at Pt Temp ABG HCO3 ABG O2 Sat (Measured) ABG O2 Content ABG Base Excess Tejas Test O2 Delivery Device Oxygen Flow Rate Vent Mode Vent Rate Mechanical Rate PEEP Pressure Support Vent Sodium Potassium Chloride Carbon Dioxide Anion Gap BUN Creatinine Creat Clearance w eGFR POC Glucometer 67 118 Random Glucose Lactic Acid Calcium Phosphorus Magnesium Total Bilirubin AST ALT Alkaline Phosphatase Total Protein Albumin 09/20/18 09/20/18 09/20/18 19:30 21:00 21:00 WBC 40.6 H* RBC 3.32 L Hgb 9.0 L Hct 27.5 L D MCV 82.8 MCH 27.2 MCHC 32.9 RDW 19.4 H Plt Count 449 H D MPV 9.8 Absolute Neuts (auto) 35.2 H Neutrophils % 86.8 H Neutrophils % (Manual) 70.0 Band Neutrophils % 12.0 Lymphocytes % 4.6 L D Lymphocytes % (Manual) 16.0 D Monocytes % 8.5 Monocytes % (Manual) 2 L D Eosinophils % 0.0 Eosinophils % (Manual) 0.0 Basophils % 0.1 Basophils % (Manual) 0.0 Myelocytes % (Man) Promyelocytes % (Man) Blast Cells % (Manual) Nucleated RBC % 1 H Metamyelocytes Hypochromia Platelet Estimate Adequate Platelet Comment No clumping noted Polychromasia Poikilocytosis Anisocytosis Microcytosis Macrocytosis Spherocytes Target Cells Tear Drop Cells Ovalocytes [place] Cells PT with INR INR PTT (Actin FS) Anticoagulation Therapy No Result Required. Puncture Site Right radial ABG pH 7.28 L ABG pCO2 at Pt Temp 32.7 L ABG pO2 at Pt Temp 63.7 L ABG HCO3 14.7 L ABG O2 Sat (Measured) 87.7 L ABG O2 Content 10.8 L ABG Base Excess -10.8 L Tejas Test Positive O2 Delivery Device No Result Required. Oxygen Flow Rate 40% Vent Mode Ak Vent Rate No Result Required. Mechanical Rate Yes PEEP 5.0 Pressure Support Vent 400 Sodium 136 Potassium 5.8 H Chloride 106 Carbon Dioxide 17 L Anion Gap 13 BUN 30 H Creatinine 1.7 H Creat Clearance w eGFR 41.90 POC Glucometer Random Glucose 66 L Lactic Acid Calcium 8.1 L Phosphorus 7.4 H Magnesium 2.1 Total Bilirubin 7.4 H AST 5421 H ALT 554 H Alkaline Phosphatase 215 H Total Protein 4.8 L Albumin 1.3 L 09/20/18 09/21/18 09/21/18 21:30 05:30 05:30 WBC 45.1 H* RBC 3.15 L Hgb 8.5 L Hct 27.1 L MCV 86.0 MCH 27.0 MCHC 31.4 L RDW 19.0 H Plt Count 405 MPV 10.0 Absolute Neuts (auto) 39.5 H Neutrophils % 87.7 H Neutrophils % (Manual) 84.2 H D Band Neutrophils % 6.9 Lymphocytes % 4.6 L Lymphocytes % (Manual) 0.0 L Monocytes % 7.5 Monocytes % (Manual) 6 D Eosinophils % 0.1 D Eosinophils % (Manual) 0.0 Basophils % 0.1 Basophils % (Manual) 0.0 Myelocytes % (Man) 2 Promyelocytes % (Man) 0 Blast Cells % (Manual) 0 Nucleated RBC % 0 Metamyelocytes 0 Hypochromia 2+ Platelet Estimate Normal Platelet Comment Polychromasia 1+ Poikilocytosis 0 Anisocytosis 0 Microcytosis 0 Macrocytosis 0 Spherocytes Target Cells Tear Drop Cells Ovalocytes [place] Cells PT with INR INR PTT (Actin FS) Anticoagulation Therapy Puncture Site ABG pH ABG pCO2 at Pt Temp ABG pO2 at Pt Temp ABG HCO3 ABG O2 Sat (Measured) ABG O2 Content ABG Base Excess Tejas Test O2 Delivery Device Oxygen Flow Rate Vent Mode Vent Rate Mechanical Rate PEEP Pressure Support Vent Sodium 131 L Potassium 7.0 H* Chloride 102 Carbon Dioxide 11 L Anion Gap 18 H BUN 33 H Creatinine 2.2 H Creat Clearance w eGFR 31.12 POC Glucometer 77 Random Glucose 129 H Lactic Acid Calcium 8.0 L Phosphorus > 9.0 H* Magnesium 2.1 Total Bilirubin 6.9 H AST 5039 H ALT 673 H Alkaline Phosphatase 233 H Total Protein 4.8 L Albumin 1.3 L 09/21/18 09/21/18 09/21/18 05:30 07:23 10:00 WBC 47.9 H* RBC 3.03 L Hgb 8.3 L Hct 27.0 L MCV 89.1 MCH 27.3 MCHC 30.7 L RDW 19.0 H Plt Count 372 MPV 10.1 Absolute Neuts (auto) 42.5 H Neutrophils % 88.7 H Neutrophils % (Manual) 82.3 Band Neutrophils % 10.8 Lymphocytes % 3.4 L D Lymphocytes % (Manual) 0.0 L Monocytes % 7.4 Monocytes % (Manual) 6 Eosinophils % 0.0 D Eosinophils % (Manual) 0.0 Basophils % 0.5 D Basophils % (Manual) 0.0 Myelocytes % (Man) 0 D Promyelocytes % (Man) 0 Blast Cells % (Manual) 0 Nucleated RBC % 0 Metamyelocytes 0 Hypochromia 2+ Platelet Estimate Normal Platelet Comment Present Polychromasia 2+ Poikilocytosis 3+ Anisocytosis 2+ Microcytosis 2+ Macrocytosis 1+ Spherocytes 2+ Target Cells 1+ Tear Drop Cells 1+ Ovalocytes 1+ [place] Cells 2+ PT with INR INR PTT (Actin FS) Anticoagulation Therapy Puncture Site ABG pH ABG pCO2 at Pt Temp ABG pO2 at Pt Temp ABG HCO3 ABG O2 Sat (Measured) ABG O2 Content ABG Base Excess Tejas Test O2 Delivery Device Oxygen Flow Rate Vent Mode Vent Rate Mechanical Rate PEEP Pressure Support Vent Sodium Potassium Chloride Carbon Dioxide Anion Gap BUN Creatinine Creat Clearance w eGFR POC Glucometer 129 Random Glucose Lactic Acid 14.1 H* Calcium Phosphorus Magnesium Total Bilirubin AST ALT Alkaline Phosphatase Total Protein Albumin 09/21/18 09/21/18 09/21/18 10:00 10:30 10:45 WBC RBC Hgb Hct MCV MCH MCHC RDW Plt Count MPV Absolute Neuts (auto) Neutrophils % Neutrophils % (Manual) Band Neutrophils % Lymphocytes % Lymphocytes % (Manual) Monocytes % Monocytes % (Manual) Eosinophils % Eosinophils % (Manual) Basophils % Basophils % (Manual) Myelocytes % (Man) Promyelocytes % (Man) Blast Cells % (Manual) Nucleated RBC % Metamyelocytes Hypochromia Platelet Estimate Platelet Comment Polychromasia Poikilocytosis Anisocytosis Microcytosis Macrocytosis Spherocytes Target Cells Tear Drop Cells Ovalocytes [place] Cells PT with INR 47.90 H INR 4.00 H PTT (Actin FS) 66.2 H Anticoagulation Therapy No Result Required. Puncture Site Right radial ABG pH 6.95 L* ABG pCO2 at Pt Temp 40.5 ABG pO2 at Pt Temp 74.0 L ABG HCO3 8.5 L ABG O2 Sat (Measured) 86.1 L ABG O2 Content 7.9 L* ABG Base Excess -21.5 L Tejas Test Positive O2 Delivery Device No Result Required. Oxygen Flow Rate Yes Vent Mode No Result Required. Vent Rate No Result Required. Mechanical Rate No Result Required. PEEP Pressure Support Vent No Result Required. Sodium 132 L Potassium 7.3 H* Chloride 102 Carbon Dioxide 11 L Anion Gap 19 H BUN 33 H Creatinine 2.5 H Creat Clearance w eGFR 26.85 POC Glucometer Random Glucose 117 H Lactic Acid Calcium 8.6 Phosphorus > 9.0 H* Magnesium 2.0 Total Bilirubin 7.0 H AST 5620 H ALT 704 H Alkaline Phosphatase 240 H Total Protein 4.7 L Albumin 1.3 L Active Medications Generic Name Dose Route Start Last Admin Trade Name Freq PRN Reason Stop Dose Admin Albuterol Sulfate 1 amp 09/21/18 08:55 Ventolin 0.5% - NEB Q4H PRN SHORT OF BREATH/WHEEZING Chlorhexidine Gluconate 1 applic 09/20/18 22:00 09/20/18 21:26 Hibiclens For Decolonization - TP 1 applic HS ALYSA Administration Hydrocortisone Sodium Succinate 50 mg 09/21/18 12:00 09/21/18 11:57 Solu-Cortef - IVPUSH 50 mg Q6H ALYSA Administration Octreotide Acetate 1,200 mcg/ 500 mls @ 20.83 mls/hr 09/19/18 19:00 09/20/18 22:39 Dextrose IVPB Not Given ASDIR ALYSA 50 MCG/HR Fentanyl 500 mcg/ Dextrose 100 mls @ 0 mls/hr 09/19/18 19:30 09/21/18 10:32 IVPB 100 mcg/hr TITR ALYSA 20 mls/hr Administration Protocol 0 MCG/HR Pantoprazole Sodium 80 mg/ 100 mls @ 10 mls/hr 09/19/18 23:30 09/21/18 12:21 Sodium Chloride IVPB 10 mls/hr Q10H ALYSA Administration 8 MG/HR Piperacillin Sod/Tazobactam 50 mls @ 100 mls/hr 09/20/18 21:00 09/21/18 05:20 Sod 3.375 gm/ Dextrose IVPB 09/21/18 13:29 100 mls/hr Q8H ALYSA Administration Norepinephrine Bitartrate 4, 500 mls @ 37.5 mls/hr 09/20/18 22:30 09/21/18 10 :30 000 mcg/ Dextrose IV 30 mcg/min TITR ALYSA 225 mls/hr Administration Protocol 5 MCG/MIN Dextrose/Sodium Chloride 1,000 mls @ 100 mls/hr 09/21/18 00:45 09/21/18 01:00 D5-Ns - IV 100 mls/hr ASDIR ALYSA Administration Vasopressin 50 units/ Sodium 100 mls @ 4 mls/hr 09/21/18 08:30 09/21/18 11:00 Chloride IVPB 6 units/hr ASDIR ALYSA 12 mls/hr Titration Protocol 2 UNITS/HR Insulin Aspart 1 vial 09/20/18 07:00 09/21/18 11:34 Novolog Vial Sliding Scale - SQ Not Given ACHS ALYSA Protocol Midazolam HCl 2 mg 09/21/18 03:58 09/21/18 04:08 Versed - IVPUSH 2 mg Q2H PRN Administration AGITATION Morphine Sulfate 2 mg 09/21/18 11:18 Morphine Sulfate IVPUSH Q1H PRN PAIN LEVEL 4 - 6 Mupirocin 1 applic 09/20/18 10:00 09/21/18 10:52 Bactroban Ointment (For Decolonization) - NS 09/25/18 09:59 1 applic BID ALYSA Administration ASSESSMENT/PLAN: 58 y/o M w/ PMHx 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 2/2 hepatitis C, esophageal varices, portal vein thrombosis, DM, p/w massive UGIB, intubated and sedated and admitted to ICU #GI -emergent EGD failed to visualize source of bleeding -blood products and fluid resuscitation -PTX and octreotide gtt -no perforation on CT a/p -bleeding remains uncontrolled -in fulminant hepatic failure, progressing to hepatorenal syndrome #heme -s/p 2U FFP, 5U PRBC -now in leukemoid state 2/2 multi-system failure #pulm -intubated, sedated on fentanyl and midazolam gtt -grossly acidotic pH 6.95, rapidly deteriorating #CV -femoral line in place -on multiple pressors and not maintaining adequate MAP #renal -creatinine spiking -electrolytes dysregulated and spiralling out of control despite corrective efforts #FEN -IVF as per ICU team -aggressive correction but patient continues to deteriorate -NPO #PPx -DVT: mechanical AC only -GI: PTX gtt #code -family continues to insist on full measures -prognosis is grave, imminent expiration anticipated #dispo -cont to monitor in ICU -beyond consideration for tertiary center transfer Visit type - Emergency Visit Emergency Visit: No - New Patient This patient is new to me today: No - Critical Care Critical Care patient: Yes Total Critical Care Time (in minutes): 40 Critical Care Statement: The care of this patient involved high complexity decision making to prevent further life threatening deterioration of the patient 's condition and/or to evaluate & treat vital organ system(s) failure or risk of failure.
--- NOTE | 2018-09-21 13:25 | PN ---
Progress Note (short form) - Note Progress Note: OGT placed. Air auscultated in LUQ. 500 CC dark blood aspirated. Some improvement in tympany Problem List - Problems (1) UGIB (upper gastrointestinal bleed) Code(s): K92.2 - GASTROINTESTINAL HEMORRHAGE, UNSPECIFIED
[2018-09-21 13:56] VITALS: BMI 28.8
--- NOTE | 2018-09-21 15:09 | PN ---
Progress Note (short form) - Note Progress Note: ID consult dictated imp/reccd unfortunate 58 yo man with HCC diagnosed 6 months ago, former treated hep c presented on 09/19 with hemetemesis, known esophageal varices s/p banding has had paracentesis as well in the past he required intubation in the ED and had upper endoscopy that showed active esophagela bleeding he was transfused and admitted to the ICU now he is in multiorgan failure ngt with continued blood he is on pressors and solucortef was added last night he was switched from ceftriaxone to zosyn vancomycin one gram added last night overall doing poorly HCC with portal vein involvement and adenopathy multiorgan failure continue zosyn adjust for loree family discussions continue regarding goals of care overall prognosis is grim Problem List - Problems (1) HCC (hepatocellular carcinoma) Code(s): C22.0 - LIVER CELL CARCINOMA (2) Multi-organ failure with liver failure Code(s): K72.90 - HEPATIC FAILURE, UNSPECIFIED WITHOUT COMA
[2018-09-21 15:36] LABS: ANION GAP 19 MMOL/L (8-16); BLOOD UREA NITROGEN 32 mg/dL (7-18); CALCIUM 8.3 mg/dL (8.5-10.1); CHLORIDE 99 mmol/L (98-107); CO2 11 mmol/L (21-32); CREATININE 2.8 mg/dL (0.55-1.3); GLUCOSE,RANDOM 259 mg/dL (74-106); MAGNESIUM 2.2 mg/dL (1.8-2.4); SODIUM 129 mmol/L (136-145)
[2018-09-21 15:43] LABS: PHOSPHOROUS > 9.0 mg/dL (2.5-4.9)
[2018-09-21] MEDS ORDERED: ALBUTEROL SO4 0.083% IH SOL 2.5 MG/3 ML VIAL.NEB. NEB ONE ×3 (15:45→22:30)
--- NOTE | 2018-09-21 17:58 | PN ---
Teaching Attending Note Name of Resident: Adan Calix ATTENDING PHYSICIAN STATEMENT I saw and evaluated the patient. I reviewed the resident's note and discussed the case with the resident. I agree with the resident's findings and plan as documented. SUBJECTIVE: Intubated/Sedated. Unable to participate in medical interview OBJECTIVE: Afebrile, BP low despite 2 pressors. Last Vital Signs Temp Pulse Resp BP Pulse Ox 97.8 F 97 H 12 80/49 L 90 L 09/21/18 15:00 09/21/18 16:33 09/21/18 16:00 09/21/18 16:33 09/21/18 01:53 HEENT - Atraumatic, Normocephalic Heart - S1, S2, RRR Lungs - Intubated, mechanically ventilated. Good air entry bilaterally. Abdomen - Distended - tense Extremities - Edema. Neuro - Sedated. Laboratory Results - last 24 hr 09/20/18 09/20/18 09/20/18 05:30 14:55 19:08 WBC RBC Hgb Hct MCV MCH MCHC RDW Plt Count MPV Absolute Neuts (auto) Neutrophils % Neutrophils % (Manual) 77.0 Band Neutrophils % 20.0 Lymphocytes % Lymphocytes % (Manual) 2.0 L Monocytes % Monocytes % (Manual) 1 L Eosinophils % Eosinophils % (Manual) 0.0 Basophils % Basophils % (Manual) 0.0 Myelocytes % (Man) Promyelocytes % (Man) Blast Cells % (Manual) Nucleated RBC % Metamyelocytes Hypochromia 1+ Platelet Estimate Increased Platelet Comment No clumping noted Polychromasia Poikilocytosis Anisocytosis 1+ Microcytosis Macrocytosis Spherocytes Target Cells Few Tear Drop Cells Ovalocytes Akila Cells PT with INR INR PTT (Actin FS) Anticoagulation Therapy Puncture Site ABG pH ABG pCO2 at Pt Temp ABG pO2 at Pt Temp ABG HCO3 ABG O2 Sat (Measured) ABG O2 Content ABG Base Excess Tejas Test O2 Delivery Device Oxygen Flow Rate Vent Mode Vent Rate Mechanical Rate PEEP Pressure Support Vent Sodium Potassium Chloride Carbon Dioxide Anion Gap BUN Creatinine Creat Clearance w eGFR POC Glucometer 118 Random Glucose Lactic Acid Calcium Ionized Calcium 4.7 Phosphorus Magnesium Total Bilirubin AST ALT Alkaline Phosphatase Total Protein Albumin 09/20/18 09/20/18 09/20/18 19:30 21:00 21:00 WBC 40.6 H* RBC 3.32 L Hgb 9.0 L Hct 27.5 L D MCV 82.8 MCH 27.2 MCHC 32.9 RDW 19.4 H Plt Count 449 H D MPV 9.8 Absolute Neuts (auto) 35.2 H Neutrophils % 86.8 H Neutrophils % (Manual) 70.0 Band Neutrophils % 12.0 Lymphocytes % 4.6 L D Lymphocytes % (Manual) 16.0 D Monocytes % 8.5 Monocytes % (Manual) 2 L D Eosinophils % 0.0 Eosinophils % (Manual) 0.0 Basophils % 0.1 Basophils % (Manual) 0.0 Myelocytes % (Man) Promyelocytes % (Man) Blast Cells % (Manual) Nucleated RBC % 1 H Metamyelocytes Hypochromia Platelet Estimate Adequate Platelet Comment No clumping noted Polychromasia Poikilocytosis Anisocytosis Microcytosis Macrocytosis Spherocytes Target Cells Tear Drop Cells Ovalocytes Akila Cells PT with INR INR PTT (Actin FS) Anticoagulation Therapy No Result Required. Puncture Site Right radial ABG pH 7.28 L ABG pCO2 at Pt Temp 32.7 L ABG pO2 at Pt Temp 63.7 L ABG HCO3 14.7 L ABG O2 Sat (Measured) 87.7 L ABG O2 Content 10.8 L ABG Base Excess -10.8 L Tejas Test Positive O2 Delivery Device No Result Required. Oxygen Flow Rate 40% Vent Mode Ak Vent Rate No Result Required. Mechanical Rate Yes PEEP 5.0 Pressure Support Vent 400 Sodium 136 Potassium 5.8 H Chloride 106 Carbon Dioxide 17 L Anion Gap 13 BUN 30 H Creatinine 1.7 H Creat Clearance w eGFR 41.90 POC Glucometer Random Glucose 66 L Lactic Acid Calcium 8.1 L Ionized Calcium Phosphorus 7.4 H Magnesium 2.1 Total Bilirubin 7.4 H AST 5421 H ALT 554 H Alkaline Phosphatase 215 H Total Protein 4.8 L Albumin 1.3 L 09/20/18 09/21/18 09/21/18 21:30 05:30 05:30 WBC 45.1 H* RBC 3.15 L Hgb 8.5 L Hct 27.1 L MCV 86.0 MCH 27.0 MCHC 31.4 L RDW 19.0 H Plt Count 405 MPV 10.0 Absolute Neuts (auto) 39.5 H Neutrophils % 87.7 H Neutrophils % (Manual) 84.2 H D Band Neutrophils % 6.9 Lymphocytes % 4.6 L Lymphocytes % (Manual) 0.0 L Monocytes % 7.5 Monocytes % (Manual) 6 D Eosinophils % 0.1 D Eosinophils % (Manual) 0.0 Basophils % 0.1 Basophils % (Manual) 0.0 Myelocytes % (Man) 2 Promyelocytes % (Man) 0 Blast Cells % (Manual) 0 Nucleated RBC % 0 Metamyelocytes 0 Hypochromia 2+ Platelet Estimate Normal Platelet Comment Polychromasia 1+ Poikilocytosis 0 Anisocytosis 0 Microcytosis 0 Macrocytosis 0 Spherocytes Target Cells Tear Drop Cells Ovalocytes Dale Cells PT with INR INR PTT (Actin FS) Anticoagulation Therapy Puncture Site ABG pH ABG pCO2 at Pt Temp ABG pO2 at Pt Temp ABG HCO3 ABG O2 Sat (Measured) ABG O2 Content ABG Base Excess Tejas Test O2 Delivery Device Oxygen Flow Rate Vent Mode Vent Rate Mechanical Rate PEEP Pressure Support Vent Sodium 131 L Potassium 7.0 H* Chloride 102 Carbon Dioxide 11 L Anion Gap 18 H BUN 33 H Creatinine 2.2 H Creat Clearance w eGFR 31.12 POC Glucometer 77 Random Glucose 129 H Lactic Acid Calcium 8.0 L Ionized Calcium Phosphorus > 9.0 H* Magnesium 2.1 Total Bilirubin 6.9 H AST 5039 H ALT 673 H Alkaline Phosphatase 233 H Total Protein 4.8 L Albumin 1.3 L 09/21/18 09/21/18 09/21/18 05:30 07:23 10:00 WBC 47.9 H* RBC 3.03 L Hgb 8.3 L Hct 27.0 L MCV 89.1 MCH 27.3 MCHC 30.7 L RDW 19.0 H Plt Count 372 MPV 10.1 Absolute Neuts (auto) 42.5 H Neutrophils % 88.7 H Neutrophils % (Manual) 82.3 Band Neutrophils % 10.8 Lymphocytes % 3.4 L D Lymphocytes % (Manual) 0.0 L Monocytes % 7.4 Monocytes % (Manual) 6 Eosinophils % 0.0 D Eosinophils % (Manual) 0.0 Basophils % 0.5 D Basophils % (Manual) 0.0 Myelocytes % (Man) 0 D Promyelocytes % (Man) 0 Blast Cells % (Manual) 0 Nucleated RBC % 0 Metamyelocytes 0 Hypochromia 2+ Platelet Estimate Normal Platelet Comment Present Polychromasia 2+ Poikilocytosis 3+ Anisocytosis 2+ Microcytosis 2+ Macrocytosis 1+ Spherocytes 2+ Target Cells 1+ Tear Drop Cells 1+ Ovalocytes 1+ Dale Cells 2+ PT with INR INR PTT (Actin FS) Anticoagulation Therapy Puncture Site ABG pH ABG pCO2 at Pt Temp ABG pO2 at Pt Temp ABG HCO3 ABG O2 Sat (Measured) ABG O2 Content ABG Base Excess Tejas Test O2 Delivery Device Oxygen Flow Rate Vent Mode Vent Rate Mechanical Rate PEEP Pressure Support Vent Sodium Potassium Chloride Carbon Dioxide Anion Gap BUN Creatinine Creat Clearance w eGFR POC Glucometer 129 Random Glucose Lactic Acid 14.1 H* Calcium Ionized Calcium Phosphorus Magnesium Total Bilirubin AST ALT Alkaline Phosphatase Total Protein Albumin 09/21/18 09/21/18 09/21/18 10:00 10:30 10:45 WBC RBC Hgb Hct MCV MCH MCHC RDW Plt Count MPV Absolute Neuts (auto) Neutrophils % Neutrophils % (Manual) Band Neutrophils % Lymphocytes % Lymphocytes % (Manual) Monocytes % Monocytes % (Manual) Eosinophils % Eosinophils % (Manual) Basophils % Basophils % (Manual) Myelocytes % (Man) Promyelocytes % (Man) Blast Cells % (Manual) Nucleated RBC % Metamyelocytes Hypochromia Platelet Estimate Platelet Comment Polychromasia Poikilocytosis Anisocytosis Microcytosis Macrocytosis Spherocytes Target Cells Tear Drop Cells Ovalocytes Akila Cells PT with INR 47.90 H INR 4.00 H PTT (Actin FS) 66.2 H Anticoagulation Therapy No Result Required. Puncture Site Right radial ABG pH 6.95 L* ABG pCO2 at Pt Temp 40.5 ABG pO2 at Pt Temp 74.0 L ABG HCO3 8.5 L ABG O2 Sat (Measured) 86.1 L ABG O2 Content 7.9 L* ABG Base Excess -21.5 L Tejas Test Positive O2 Delivery Device No Result Required. Oxygen Flow Rate Yes Vent Mode No Result Required. Vent Rate No Result Required. Mechanical Rate No Result Required. PEEP Pressure Support Vent No Result Required. Sodium 132 L Potassium 7.3 H* Chloride 102 Carbon Dioxide 11 L Anion Gap 19 H BUN 33 H Creatinine 2.5 H Creat Clearance w eGFR 26.85 POC Glucometer Random Glucose 117 H Lactic Acid Calcium 8.6 Ionized Calcium Phosphorus > 9.0 H* Magnesium 2.0 Total Bilirubin 7.0 H AST 5620 H ALT 704 H Alkaline Phosphatase 240 H Total Protein 4.7 L Albumin 1.3 L 09/21/18 14:15 WBC RBC Hgb Hct MCV MCH MCHC RDW Plt Count MPV Absolute Neuts (auto) Neutrophils % Neutrophils % (Manual) Band Neutrophils % Lymphocytes % Lymphocytes % (Manual) Monocytes % Monocytes % (Manual) Eosinophils % Eosinophils % (Manual) Basophils % Basophils % (Manual) Myelocytes % (Man) Promyelocytes % (Man) Blast Cells % (Manual) Nucleated RBC % Metamyelocytes Hypochromia Platelet Estimate Platelet Comment Polychromasia Poikilocytosis Anisocytosis Microcytosis Macrocytosis Spherocytes Target Cells Tear Drop Cells Ovalocytes Dale Cells PT with INR INR PTT (Actin FS) Anticoagulation Therapy Puncture Site ABG pH ABG pCO2 at Pt Temp ABG pO2 at Pt Temp ABG HCO3 ABG O2 Sat (Measured) ABG O2 Content ABG Base Excess Tejas Test O2 Delivery Device Oxygen Flow Rate Vent Mode Vent Rate Mechanical Rate PEEP Pressure Support Vent Sodium 129 L Potassium 7.0 H* Chloride 99 Carbon Dioxide 11 L Anion Gap 19 H BUN 32 H Creatinine 2.8 H Creat Clearance w eGFR 23.56 POC Glucometer Random Glucose 259 H Lactic Acid Calcium 8.3 L Ionized Calcium Phosphorus > 9.0 H* Magnesium 2.2 Total Bilirubin AST ALT Alkaline Phosphatase Total Protein Albumin Current Medications Generic Name Dose Route Start Last Admin Trade Name Freq PRN Reason Stop Dose Admin Chlorhexidine Gluconate 1 applic 09/20/18 22:00 09/20/18 21:26 Hibiclens For Decolonization - TP 1 applic HS ALYSA Administration Hydrocortisone Sodium Succinate 50 mg 09/21/18 12:00 09/21/18 11:57 Solu-Cortef - IVPUSH 50 mg Q6H ALYSA Administration Octreotide Acetate 1,200 mcg/ 500 mls @ 20.83 mls/hr 09/19/18 19:00 09/20/18 22:39 Dextrose IVPB Not Given ASDIR ALYSA 50 MCG/HR Fentanyl 500 mcg/ Dextrose 100 mls @ 0 mls/hr 09/19/18 19:30 09/21/18 16:00 IVPB 100 mcg/hr TITR ALYSA 20 mls/hr Administration Protocol 0 MCG/HR Pantoprazole Sodium 80 mg/ 100 mls @ 10 mls/hr 09/19/18 23:30 09/21/18 12:21 Sodium Chloride IVPB 10 mls/hr Q10H ALYSA Administration 8 MG/HR Norepinephrine Bitartrate 4, 500 mls @ 37.5 mls/hr 09/20/18 22:30 09/21/18 10 :30 000 mcg/ Dextrose IV 30 mcg/min TITR ALYSA 225 mls/hr Administration Protocol 5 MCG/MIN Dextrose/Sodium Chloride 1,000 mls @ 100 mls/hr 09/21/18 00:45 09/21/18 16:00 D5-Ns - IV 100 mls/hr ASDIR ALYSA Administration Vasopressin 50 units/ Sodium 100 mls @ 4 mls/hr 09/21/18 08:30 09/21/18 16:33 Chloride IVPB 6 units/hr ASDIR ALYSA 12 mls/hr Administration Protocol 2 UNITS/HR Piperacillin Sod/Tazobactam 50 mls @ 100 mls/hr 09/21/18 18:00 Sod 2.25 gm/ Dextrose IVPB Q8H-IV ALYSA Protocol Insulin Aspart 1 vial 09/20/18 07:00 09/21/18 11:34 Novolog Vial Sliding Scale - SQ Not Given ACHS ALYSA Protocol Midazolam HCl 2 mg 09/21/18 03:58 09/21/18 04:08 Versed - IVPUSH 2 mg Q2H PRN Administration AGITATION Morphine Sulfate 2 mg 09/21/18 11:18 Morphine Sulfate IVPUSH Q1H PRN PAIN LEVEL 4 - 6 Mupirocin 1 applic 09/20/18 10:00 09/21/18 10:52 Bactroban Ointment (For Decolonization) - NS 09/25/18 09:59 1 applic BID ALYSA Administration ASSESSMENT AND PLAN: 58 year old male with 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 Emergent EGD was performed but source of bleeding was not identified due to large amount of fresh blood from actively bleeding vessel. No intervention was performed. 1. Acute Blood Loss anemia and Hemorrhagic Shock with Multi-organ Failure secondary to Catastrophic Variceal Bleeding due to Portal Hypertension secondary to Liver Cirrhosis s/p EGD - unable to identify source or apply intervention s/p Intubation for airway protection On Vasopressin, Levophed, and Hydrocortizone. H/H 8.5/27.1 s/p 5 units PRBCs Leukocytosis - WBC now 45, LActic Acid 14 Continue Protonix and Octreotide drips. Prophylactic Ceftriaxone. GI following - further recommendations for management/intervention as per GI. Patient critically ill with poor prognosis. Family continues to want active/ aggressive medical management. 2. Hyperkalemia - persistent/refractory s/p Insulin/Dextrose. Will monitor. 3. Hepatic Failure secondary to Liver Cirrhosis secondary to Hepatitis C. [facility]s [facility]ology at [facility]. No further intervention planned. Hypoalbuminema and Elevated INR secondary to reduced synthetic function due to Cirrhosis - s/p 2 units FFP TbIl 6.9/AST 5039/ALT 673 4. DM 2 - Novolog sliding scale. 5. VIVIENNE secondary to Hepatorenal Syndrome secondary to Hepatic Failure and Hemorrhagic shock - Continue IV fluids. Prognosis poor. Family wants all measures including full resuscitation at this time. Currently, full code.
[2018-09-21 19:21] LABS: HEMATOCRIT 22.1 % (35.4-49); MCH 26.3 pg (25.7-33.7); MCHC 29.1 g/dl (32.0-35.9); MEAN CELL VOLUME 90.4 fl (80-96); MEAN PLT VOLUME 9.3 fl (7.5-11.1); PLATELET COUNT 248 K/MM3 (134-434); RBC 2.44 M/mm3 (4.00-5.60); RDW 19.2 % (11.9-15.9)
[2018-09-21 19:28] LABS: HEMOGLOBIN 6.4 GM/dL (11.7-16.9); WHITE BLOOD COUNT 61.6 K/mm3 (4.0-10.0)
[2018-09-21] MEDS ORDERED: PIPERACILLIN/TAZOBACTAM 2.25 GM VIAL IVPB ONE (20:07)
[2018-09-21 20:13] LABS: PHOSPHOROUS 9.6 mg/dL (2.5-4.9)
[2018-09-21] MEDS: PIPERACILLIN/TAZOB 2.25 GM 2.25 GM in DEXTROSE 5%-WATER - 50 ML IVPB SCH (20:15)
--- NOTE | 2018-09-21 20:19 | PN ---
Progress Note (short form) - Note Progress Note: Patient's son in law and nephew present. Discussed current clinical condition. With decrease in H/H and bloody output from NGT, I explained that continued bleeding is likely. I Explained again that he is in multiorgan failure. (They explained that he was taken off nivolumab therapy because he did not have a response). Overall grave prognosis. They asked for options regarding the bleeding. I explained that sabrina tube could be placed in attempt to lessen the bleeding, however it would not reverse current condition. Explained that placement could potentially worsen bleeding and discussed other potential risks such as rupture of the esophagus. Again discussed comfort measures as well. They explained that they would think about these options. Continuing supportive measure in the interim. PBRC have been ordered by ICU team. Continued pressors, Abx. Problem List - Problems (1) UGIB (upper gastrointestinal bleed) Code(s): K92.2 - GASTROINTESTINAL HEMORRHAGE, UNSPECIFIED
[2018-09-21] MEDS: OCTREOTIDE ACETATE 1,200 MCG in DEXTROSE 5%-WATER - 488 ML IVPB SCH ×2 (21:37→22:00)
[2018-09-21] MEDS: CHLORHEXIDINE GLUCONATE 4% CLEANSER FOR DECOLONIZATION TP SCH (21:43)
--- NOTE | 2018-09-21 22:00 | PN ---
Progress Note (short form) - Note Progress Note: MAP 48 on full dose Levophed and Vasopressin. 2U PRBC being given. I and senior Resident Dr. Carr spoke with the family extensively about the goals of care, the nephew (healthcare proxy) decided to sign a DNR. Family wishes for medical care to continue.
[2018-09-21 22:15] LABS: ALBUMIN 1.2 g/dl (3.4-5.0); ALK PHOS 344 U/L (45-117); ANION GAP 19 MMOL/L (8-16); BILIRUBIN,TOTAL 6.6 mg/dL (0.2-1); BLOOD UREA NITROGEN 32 mg/dL (7-18); CALCIUM 8.3 mg/dL (8.5-10.1); CHLORIDE 98 mmol/L (98-107); CO2 12 mmol/L (21-32); CREATININE 2.9 mg/dL (0.55-1.3); MAGNESIUM 2.1 mg/dL (1.8-2.4); SGOT/AST 13382 U/L (15-37); SGPT/ALT 1473 U/L (13-61); SODIUM 128 mmol/L (136-145); TOT PROT 4.3 g/dl (6.4-8.2)
[2018-09-21 22:21] LABS: GLUCOSE,RANDOM 312 mg/dL (74-106); POTASSIUM 7.1 mmol/L (3.5-5.1)
[2018-09-22] MEDS: FENTANYL INJECTION 500 MCG in DEXTROSE 5%-WATER - 90 ML IVPB SCH (00:30)
--- NOTE | 2018-09-22 00:43 | CONS ---
DATE OF CONSULTATION: DATE OF DICTATION: 09/21/2018 INFECTIOUS DISEASE CONSULTATION REQUESTING PHYSICIAN: Hospitalist Service CONSULTING PHYSICIAN: Kitty Marti M.D. HISTORY OF PRESENT ILLNESS: This is an unfortunate 58-year-old man who presented to the emergency room with a history of prior hepatitis C that has been treated, hepatocellular carcinoma diagnosed 6 months ago, recent immunotherapy stopped in July due to elevated bilirubin. He has a history of melena status post variceal banding in the past, and is status post paracentesis. He presented to the emergency room on the with voluminous hematemesis, the worst he has ever had. He was intubated in the emergency room. He had upper endoscopy that showed active esophageal bleeding. He was transferred to the ICU. Over the next 24 to 48 hours, his condition continued to worsen. He remained intubated. He required multiple blood transfusions . He was started on ceftriaxone. His white count which on admission was 17, started rising to 38, and I was asked to see him for leukocytosis. This morning he is noted to be in multiorgan failure with a white count of 45,000 and an INR of 4, as well as a BUN and creatinine of 33 and 2.5 with an AST 5620 and an ALT of 704 with an alkaline phosphatase of 240. An NG tube was just placed, and there is dark blood that is being suctioned out. He is currently unresponsive. He is also on 2 pressors, Solu-Cortef was started this morning. PAST MEDICAL HISTORY: As stated. Is notable for treated hepatitis C 9 years ago. He has a history of hepatocellular carcinoma, esophageal varices, type 2 diabetes, portal vein thrombosis. SURGICAL HISTORY: Notable for appendectomy. SOCIAL HISTORY: He is a former smoker, no history of alcohol or substance use. ALLERGIES: No known drug allergies. MEDICATION: He received his medications at home include sucralfate, loperamide, Miralax, ferrous sulfate, iron, propranolol, pantoprazole. REVIEW OF SYSTEMS: Notable for hematemesis. PHYSICAL EXAMINATION: VITAL SIGNS: Temperature is 97.8. He has never had any fever. Pulse 99, blood pressure 79/44, respiratory rate 12. He is on FiO2 of 55%. HEENT: Normocephalic. Eyes are anicteric. He is orally intubated. He has an oral draining blood. LUNGS: Diminished breath sounds at the bases. HEART: Tachycardic. ABDOMEN: Distended and firm. EXTREMITIES: Have edema, and he is sedated. LABORATORY: Notable as stated before for a white count of 45,000, hemoglobin 8.5, platelets of 405, INR is 4. His BUN and creatinine are 33 and 2.5, sodium 132, potassium 7.3 and is being actively treated with an AST of 5620, ALT 704, and an alkaline phosphatase of 240. Chest x-ray shows a congestive changes, enlarged heart. Cannot rule out a retrocardiac infiltrate. IMPRESSION: In summary, this is an unfortunate 58-year-old man with advanced hepatocellular carcinoma with portal vein involvement and adenopathy, multiorgan failure who has failed recent immunotherapy who is now in multiorgan failure. Would continue Zosyn, adjust it for his acute kidney injury. Family discussions continue regarding goals of care. Overall prognosis is quite grim. He is on 2 pressors and steroids and has evidence of liver and kidney failure at this point. KITTY MARTI M.D. [id number]
[2018-09-22] MEDS ORDERED: VASOPRESSIN 20 UNITS/ML VIAL IV ONE (01:00)
[2018-09-22] MEDS: NOREPINEPHRINE BITARTRATE 4,000 MCG in DEXTROSE 5%-WATER - 496 ML IV SCH ×2 (01:22)
[2018-09-22] MEDS: DEXTROSE 5%-NORMAL SALINE 1,000 ML IV SCH (01:23)
[2018-09-22] MEDS: HYDROCORTISONE SOD SUCCINATE 100 MG/2 ML VIAL IVPUSH SCH ×2 (01:41)
[2018-09-22] MEDS: PANTOPRAZOLE SODIUM 80 MG in SODIUM CHLORIDE 100 ML IVPB SCH (01:43)
[2018-09-22] MEDS: VASOPRESSIN 50 UNITS in SODIUM CHLORIDE 97.5 ML IVPB SCH (01:44)
[2018-09-22] MEDS ORDERED: NOREPINEPHRINE BITARTRATE 4 MG/4 ML ML IV ONE (01:47)
[2018-09-22] MEDS ORDERED: PIPERACILLIN/TAZOBACTAM 2.25 GM VIAL IVPB ONE (01:47)
[2018-09-22] MEDS ORDERED: DEXTROSE 5%-WATER - 50 ML IVPB ONE (01:47)
[2018-09-22 02:21] VITALS: BP 73/51
[2018-09-22] MEDS: PIPERACILLIN/TAZOB 2.25 GM 2.25 GM in DEXTROSE 5%-WATER - 50 ML IVPB SCH (02:50)
--- NOTE | 2018-09-22 05:30 | PN ---
Progress Note (short form) - Note Progress Note: Called to assess patient . On exam the patient did not respond to verbal or physical stimuli and no spontaneous movement was observed. Absent heart and no spontaneous respirations for more than one minute. Absent peripheral pulses. Pupils are fixed and dilated, corneal reflex was absent. Patient pronounced at 0328. HCP, Tristan, at bedside.
[2018-09-22 05:47] VITALS: PULSE 30; TEMP 94
--- NOTE | 2018-09-22 07:17 | DS ---
Physical Exam: SUBJECTIVE: Patient in ICU. OBJECTIVE: Vital Signs Period Temp Pulse Resp BP Sys/Louis Pulse Ox Last 24 Hr 94 F-97.8 F 30-104 12-18 48-83/15-56 PHYSICAL EXAM Refer to pronunciation note. LABS Laboratory Results - last 24 hr 09/19/18 09/20/18 09/21/18 19:39 05:30 05:30 WBC RBC Hgb Hct MCV MCH MCHC RDW Plt Count MPV Absolute Neuts (auto) Neutrophils % Neutrophils % (Manual) 84.2 H D Band Neutrophils % 6.9 Lymphocytes % Lymphocytes % (Manual) 0.0 L Monocytes % Monocytes % (Manual) 6 D Eosinophils % Eosinophils % (Manual) 0.0 Basophils % Basophils % (Manual) 0.0 Myelocytes % (Man) 2 Promyelocytes % (Man) 0 Blast Cells % (Manual) 0 Nucleated RBC % 0 Metamyelocytes 0 Hypochromia 2+ Platelet Estimate Normal Platelet Comment Polychromasia 1+ Poikilocytosis 0 Anisocytosis 0 Microcytosis 0 Macrocytosis 0 Spherocytes Target Cells Tear Drop Cells Ovalocytes Akila Cells PT with INR INR PTT (Actin FS) Anticoagulation Therapy Puncture Site ABG pH ABG pCO2 at Pt Temp ABG pO2 at Pt Temp ABG HCO3 ABG O2 Sat (Measured) ABG O2 Content ABG Base Excess Tejas Test O2 Delivery Device Oxygen Flow Rate Vent Mode Vent Rate Mechanical Rate Pressure Support Vent Sodium Potassium Chloride Carbon Dioxide Anion Gap BUN Creatinine Creat Clearance w eGFR POC Glucometer Random Glucose Calcium Ionized Calcium 4.7 Phosphorus Magnesium Total Bilirubin AST ALT Alkaline Phosphatase Total Protein Albumin Blood Type A NEGATIVE Antibody Screen Negative Crossmatch See Detail 09/21/18 09/21/18 09/21/18 05:30 07:23 10:00 WBC 47.9 H* RBC 3.03 L Hgb 8.3 L Hct 27.0 L MCV 89.1 MCH 27.3 MCHC 30.7 L RDW 19.0 H Plt Count 372 MPV 10.1 Absolute Neuts (auto) 42.5 H Neutrophils % 88.7 H Neutrophils % (Manual) 82.3 Band Neutrophils % 10.8 Lymphocytes % 3.4 L D Lymphocytes % (Manual) 0.0 L Monocytes % 7.4 Monocytes % (Manual) 6 Eosinophils % 0.0 D Eosinophils % (Manual) 0.0 Basophils % 0.5 D Basophils % (Manual) 0.0 Myelocytes % (Man) 0 D Promyelocytes % (Man) 0 Blast Cells % (Manual) 0 Nucleated RBC % 0 Metamyelocytes 0 Hypochromia 2+ Platelet Estimate Normal Platelet Comment Present Polychromasia 2+ Poikilocytosis 3+ Anisocytosis 2+ Microcytosis 2+ Macrocytosis 1+ Spherocytes 2+ Target Cells 1+ Tear Drop Cells 1+ Ovalocytes 1+ Akila Cells 2+ PT with INR INR PTT (Actin FS) Anticoagulation Therapy Puncture Site ABG pH ABG pCO2 at Pt Temp ABG pO2 at Pt Temp ABG HCO3 ABG O2 Sat (Measured) ABG O2 Content ABG Base Excess Tejas Test O2 Delivery Device Oxygen Flow Rate Vent Mode Vent Rate Mechanical Rate Pressure Support Vent Sodium 131 L Potassium 7.0 H* Chloride 102 Carbon Dioxide 11 L Anion Gap 18 H BUN 33 H Creatinine 2.2 H Creat Clearance w eGFR 31.12 POC Glucometer 129 Random Glucose 129 H Calcium 8.0 L Ionized Calcium Phosphorus > 9.0 H* Magnesium 2.1 Total Bilirubin 6.9 H AST 5039 H ALT 673 H Alkaline Phosphatase 233 H Total Protein 4.8 L Albumin 1.3 L Blood Type Antibody Screen Crossmatch 09/21/18 09/21/18 09/21/18 10:00 10:30 10:45 WBC RBC Hgb Hct MCV MCH MCHC RDW Plt Count MPV Absolute Neuts (auto) Neutrophils % Neutrophils % (Manual) Band Neutrophils % Lymphocytes % Lymphocytes % (Manual) Monocytes % Monocytes % (Manual) Eosinophils % Eosinophils % (Manual) Basophils % Basophils % (Manual) Myelocytes % (Man) Promyelocytes % (Man) Blast Cells % (Manual) Nucleated RBC % Metamyelocytes Hypochromia Platelet Estimate Platelet Comment Polychromasia Poikilocytosis Anisocytosis Microcytosis Macrocytosis Spherocytes Target Cells Tear Drop Cells Ovalocytes [place] Cells PT with INR 47.90 H INR 4.00 H PTT (Actin FS) 66.2 H Anticoagulation Therapy No Result Required. Puncture Site Right radial ABG pH 6.95 L* ABG pCO2 at Pt Temp 40.5 ABG pO2 at Pt Temp 74.0 L ABG HCO3 8.5 L ABG O2 Sat (Measured) 86.1 L ABG O2 Content 7.9 L* ABG Base Excess -21.5 L Tejas Test Positive O2 Delivery Device No Result Required. Oxygen Flow Rate Yes Vent Mode No Result Required. Vent Rate No Result Required. Mechanical Rate No Result Required. Pressure Support Vent No Result Required. Sodium 132 L Potassium 7.3 H* Chloride 102 Carbon Dioxide 11 L Anion Gap 19 H BUN 33 H Creatinine 2.5 H Creat Clearance w eGFR 26.85 POC Glucometer Random Glucose 117 H Calcium 8.6 Ionized Calcium Phosphorus > 9.0 H* Magnesium 2.0 Total Bilirubin 7.0 H AST 5620 H ALT 704 H Alkaline Phosphatase 240 H Total Protein 4.7 L Albumin 1.3 L Blood Type Antibody Screen Crossmatch 09/21/18 09/21/18 09/21/18 14:15 18:00 18:00 WBC 61.6 H* RBC 2.44 L Hgb 6.4 L* Hct 22.1 L D MCV 90.4 MCH 26.3 MCHC 29.1 L RDW 19.2 H Plt Count 248 D MPV 9.3 Absolute Neuts (auto) Neutrophils % Neutrophils % (Manual) Band Neutrophils % Lymphocytes % Lymphocytes % (Manual) Monocytes % Monocytes % (Manual) Eosinophils % Eosinophils % (Manual) Basophils % Basophils % (Manual) Myelocytes % (Man) Promyelocytes % (Man) Blast Cells % (Manual) Nucleated RBC % Metamyelocytes Hypochromia Platelet Estimate Platelet Comment Polychromasia Poikilocytosis Anisocytosis Microcytosis Macrocytosis Spherocytes Target Cells Tear Drop Cells Ovalocytes [place] Cells PT with INR INR PTT (Actin FS) Anticoagulation Therapy Puncture Site ABG pH ABG pCO2 at Pt Temp ABG pO2 at Pt Temp ABG HCO3 ABG O2 Sat (Measured) ABG O2 Content ABG Base Excess Tejas Test O2 Delivery Device Oxygen Flow Rate Vent Mode Vent Rate Mechanical Rate Pressure Support Vent Sodium 129 L 128 L Potassium 7.0 H* 7.1 H* Chloride 99 98 Carbon Dioxide 11 L 12 L Anion Gap 19 H 19 H BUN 32 H 32 H Creatinine 2.8 H 2.9 H Creat Clearance w eGFR 23.56 22.62 POC Glucometer Random Glucose 259 H 312 H* Calcium 8.3 L 8.3 L Ionized Calcium Phosphorus > 9.0 H* 9.6 H* Magnesium 2.2 2.1 Total Bilirubin 6.6 H AST 36990 H ALT 1473 H Alkaline Phosphatase 344 H Total Protein 4.3 L Albumin 1.2 L Blood Type Antibody Screen Crossmatch 09/21/18 22:00 WBC RBC Hgb Hct MCV MCH MCHC RDW Plt Count MPV Absolute Neuts (auto) Neutrophils % Neutrophils % (Manual) Band Neutrophils % Lymphocytes % Lymphocytes % (Manual) Monocytes % Monocytes % (Manual) Eosinophils % Eosinophils % (Manual) Basophils % Basophils % (Manual) Myelocytes % (Man) Promyelocytes % (Man) Blast Cells % (Manual) Nucleated RBC % Metamyelocytes Hypochromia Platelet Estimate Platelet Comment Polychromasia Poikilocytosis Anisocytosis Microcytosis Macrocytosis Spherocytes Target Cells Tear Drop Cells Ovalocytes Akila Cells PT with INR INR PTT (Actin FS) Anticoagulation Therapy Puncture Site ABG pH ABG pCO2 at Pt Temp ABG pO2 at Pt Temp ABG HCO3 ABG O2 Sat (Measured) ABG O2 Content ABG Base Excess Tejas Test O2 Delivery Device Oxygen Flow Rate Vent Mode Vent Rate Mechanical Rate Pressure Support Vent Sodium Potassium Chloride Carbon Dioxide Anion Gap BUN Creatinine Creat Clearance w eGFR POC Glucometer 319 Random Glucose Calcium Ionized Calcium Phosphorus Magnesium Total Bilirubin AST ALT Alkaline Phosphatase Total Protein Albumin Blood Type Antibody Screen Crossmatch HOSPITAL COURSE: Date of Admission:09/19/18 Patient is a 58 y/o M w/ PMHx 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 Endoscopic resolution of the bleeding could not be achieved. Medical therapy failed to halt bleeding. Patient progressed to fulminant multiorgan failure and . 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 Aggressive critical interventions failed to stabilize patient. He rapidly deteriorated and in the ICU. - Home Medications Comprehensive Discharge Medication List: Ambulatory Orders Aspirin [Aspirin EC] 81 mg PO DAILY 02/19/18 Albuterol 0.083% Nebulizer Carey [Ventolin 0.083% Nebulizer Soln -] 1 amp NEB Q15M amp 09/20/18 Ceftriaxone [Rocephin -] 1 gm IVPB DAILY vial 09/20/18 Chlorhexidine Gluconate [Hibiclens For Decolonization -] 1 applic TP HS bottle 09/20/18 Diphenhydramine [Benadryl -] 50 mg PO HS PRN 09/20/18 Fentanyl Injection [Sublimaze Injection -] 500 mcg IVPB TITR vial MDD 500 09/20 Ferrous Sulfate 325 mg PO Q48H 09/20/18 Insulin Sliding Scale [Novolog Vial Sliding Scale -] 1 vial SQ ACHS units 09/20 Loperamide HCl [Loperamide] 2 mg PO TID 09/20/18 Midazolam [Versed -] 2 mg IVPUSH Q4H PRN ml MDD 12 09/20/18 Mupirocin Ointment [Bactroban Ointment (For Decolonization) -] 1 applic NS BID applic 09/20/18 Octreotide Acetate [Sandostatin -] 1,200 mcg IVPB ASDIR ml 09/20/18 Pantoprazole Sodium 40 mg PO DAILY 09/20/18 Polyethylene Glycol 3350 [Miralax (For Daily Use) -] 17 gm PO DAILY 09/20/18 Propranolol HCl 20 mg PO BID 09/20/18 Sucralfate [Carafate -] 1 gm PO QID 09/20/18 This patient is new to me today: No Emergency Visit: No Critical Care patient: Yes Total Critical Care Time (in minutes): 40 Critical Care Statement: The care of this patient involved high complexity decision making to prevent further life threatening deterioration of the patient 's condition and/or to evaluate & treat vital organ system(s) failure or risk of failure. - Discharge Referral Referred to [facility] Med [facility] No
== END 2018-09-22 03:00 | disposition expired | DRG 242 ==
LOC: JER 18:48 → JERBED 21:21 → JICU 22:53
PROVIDERS: ADMIT Internal Medicine
PROC: 5A1945Z Respiratory Ventilation, 24-96 Consecutive Hours (ICD-10-PCS; 2018-09-19)
PROC: 30233K1 Transfusion of Nonautologous Frozen Plasma into Peripheral Vein, Percutaneous Approach (ICD-10-PCS; 2018-09-19)
PROC: 30233N1 Transfusion of Nonautologous Red Blood Cells into Peripheral Vein, Percutaneous Approach (ICD-10-PCS; 2018-09-19)
PROC: 06HM33Z Insertion of Infusion Device into Right Femoral Vein, Percutaneous Approach (ICD-10-PCS; 2018-09-19)
PROC: 0DJ08ZZ Inspection of Upper Intestinal Tract, Via Natural or Artificial Opening Endoscopic (ICD-10-PCS; 2018-09-19)
PROC: 0BH17EZ Insertion of Endotracheal Airway into Trachea, Via Natural or Artificial Opening (ICD-10-PCS; principal; 2018-09-19 21:00)
PROC: 0D9670Z Drainage of Stomach with Drainage Device, Via Natural or Artificial Opening (ICD-10-PCS; 2018-09-21)
DX: I85.01 Esophageal varices with bleeding (principal); B19.20 Unspecified viral hepatitis C without hepatic coma; E87.5 Hyperkalemia; D62 Acute posthemorrhagic anemia; I95.9 Hypotension, unspecified; C22.0 Liver cell carcinoma; J96.00 Acute respiratory failure, unspecified whether with hypoxia or hypercapnia; I81 Portal vein thrombosis; K76.6 Portal hypertension; R14.0 Abdominal distension (gaseous); E11.9 Type 2 diabetes mellitus without complications; E88.09 Other disorders of plasma-protein metabolism, not elsewhere classified; D72.829 Elevated white blood cell count, unspecified; N17.9 Acute kidney failure, unspecified; E83.39 Other disorders of phosphorus metabolism; K56.7 Ileus, unspecified; R00.0 Tachycardia, unspecified; E46 Unspecified protein-calorie malnutrition; Z68.28 Body mass index [BMI] 28.0-28.9, adult; K72.90 Hepatic failure, unspecified without coma; R57.8 Other shock; K76.7 Hepatorenal syndrome; Z87.891 Personal history of nicotine dependence
CPT/HCPCS: 31500; 36415; 36430; 36511; 36600; 71045-TC-FY; 74018-TC-FY; 74176-TC; 80048; 80053; 82140; 82248; 82330; 82375; 82550; 82553; 82803; 82962; 83050; 83605; 83735; 83880; 84100; 84132; 84484; 85025; 85027; 85384; 85610; 85730; 86850; 86900; 86901; 86922; 87040; 93005; 93010; 94002; 94640; 99285-25; J7030; P9017; P9038; P9058